=== PATIENT | female | born 1990 | race Caucasian/White ===

== ENCOUNTER 2024-03-12 15:29 | Emergency (ER) | payer OTHER, SELFPAY ==
[2024-03-12 15:34] VITALS: BP 134/79; PULSE 89; TEMP 37.1; O2SAT 99; BMI 28.3
--- NOTE | 2024-03-12 15:39 | ED.PREGNANC1 ---
HPI - General Chief complaint: Vaginal Bleeding Stated complaint: BLEEDING, 5-6 WEEKS PREG Time Seen by Provider: 03/12/24 15:31 Source: patient Mode of arrival: walk-in Limitations: no limitations History of Present Illness HPI Narrative: Patient is a 33-year-old female who presents to the emergency department for vaginal bleeding in . She is approximately 5 to 6 weeks . She is a G3, P2 and had no issues with her previous pregnancies. She states she developed vaginal bleeding and cramping and was seen at [facility]'s emergency department yesterday. They did an ultrasound and diagnosed her with a threatened miscarriage. She states the bleeding increased today and she presents to the ER requesting repeat hormone levels because she states she needs to know if it is a miscarriage . She has an appointment with her RESEARCH DEVELOPMENT MANAGER on Thursday for repeat ultrasound. She reports mild abdominal cramping at this time. No urinary symptoms. She states she has passed clots today. Review of Systems ROS Constitutional Denies: fever or chills Ears, nose, mouth, and throat Denies: throat pain Cardiovascular Denies: chest pain Respiratory Denies: shortness of breath Gastrointestinal Denies: nausea or vomiting Genitourinary Reports: pelvic pain; Denies: painful urination Integumentary/Breast Denies: rash or redness Neurological Denies: headache, numbness in extremities or weakness in extremities Hematologic/Lymphatic Denies: easy bruising or easy bleeding PFSH PFSH Social History Little interest or pleasure in doing things: not at all Feeling down, depressed, or hopeless: not at all Exam Narrative Exam Narrative: Gen.: Awake, alert, in no distress Head: Normocephalic, atraumatic ENT: Moist mucous membranes Respiratory: No respiratory distress Gastrointestinal: Abdomen is soft, nondistended and nontender to palpation Extremities: Moves extremities equally Psych: Normal mood and affect Neuro: No focal neuro deficit Skin: Warm, dry, intact Constitutional Vital Signs, click to edit/add: Last Vital Signs Temp 98.8 F 03/12/24 15:34 Pulse 69 03/12/24 17:00 Resp 20 03/12/24 17:00 BP 164/82 H 03/12/24 17:00 Pulse Ox 99 03/12/24 17:00 O2 Del Method Room Air 03/12/24 15:34 Course Vital Signs Vital signs: Vital Signs Temperature 98.8 F 03/12/24 15:34 Pulse Rate 89 03/12/24 15:34 Respiratory Rate 16 03/12/24 15:34 Blood Pressure 134/79 03/12/24 15:34 Pulse Oximetry 99 03/12/24 15:34 Oxygen Delivery Method Room Air 03/12/24 15:34 Temperature 98.8 F 03/12/24 15:34 Pulse Rate 69 03/12/24 17:00 Respiratory Rate 20 03/12/24 17:00 Blood Pressure 164/82 H 03/12/24 17:00 Pulse Oximetry 99 03/12/24 17:00 Oxygen Delivery Method Room Air 03/12/24 15:34 MDM - OB/Uterine Contractions MDM Narrative Medical decision making narrative: Records obtained from [facility] showing that the patient had an hCG quant at 10,730 as well as an ultrasound showing a presumed gestational sac in the endometrial canal at 5 weeks and 5 days consistent with the patient's history. There was no evidence noted on the ultrasound suggesting ectopic and the patient today has no pain out of proportion or unstable vital signs. Hemoglobin is stable at 13. Patient with O+ blood type noted on documentation from [facility]. Quantitative hCG level today is 8000. Patient's levels are decreasing suggesting incomplete miscarriage. She is instructed to follow-up as scheduled with her RESEARCH DEVELOPMENT MANAGER on Thursday. No other acute intervention required from the ER today, hemoglobin is stable at 13. Return to the ER if symptoms change or worsen. SHARED APC VISIT, PHYSICIAN ATTESTATION: Sqog-uo-dxpt I performed a substantive part of the MDM during the patient?s E/M visit. I personally evaluated and examined the patient. I personally made or approved the documented management plan and acknowledge its risk of complications. Medical Records Attestation: I reviewed the patient's medical records. Lab Data Attestation: I reviewed the patient's lab results. Labs: Lab Results 03/12/24 Range/Units 16:04 WBC 5.6 (4.0-11.0) 10^3/uL RBC 4.33 (4.20-5.40) 10^6/uL Hgb 13.0 (12.0-16.0) g/dL Hct 37.3 (36.0-48.0) % MCV 86.1 (81.0-99.0) fL MCH 30.0 (26.7-34.0) pg MCHC 34.9 (29.9-35.2) g/dL RDW 12.0 (11.0-15.0) % Plt Count 247 (150-450) 10^3/uL MPV 9.9 (9.5-13.5) fL Neut % (Auto) 58.0 (43.0-75.0) % Lymph % (Auto) 30.4 (20.5-60.0) % [place] % (Auto) 6.4 (1.7-12.0) % Eos % (Auto) 4.3 (0.9-7.0) % Baso % (Auto) 0.7 (0.2-2.0) % Neut # (Auto) 3.3 (1.4-6.5) 10^3/uL Lymph # (Auto) 1.7 (1.2-3.8) 10^3/uL [place] # (Auto) 0.4 (0.3-0.8) 10^3/uL Eos # (Auto) 0.2 (0.0-0.7) 10^3/uL Baso # (Auto) 0.0 (0.0-0.1) 10^3/uL Abs Immat Gran (auto) 0.01 (0.00-0.03) 10^3/uL Imm/Tot Granulo (auto) 0.2 (0.0-0.5) % HCG, Quant 8066 mIU/mL Discharge Plan Discharge Chief Complaint: Vaginal Bleeding Clinical Impression: Incomplete Patient Disposition: Home, Self-Care Time of Disposition Decision: 17:04 Condition: Good Print Language: Azeri Instructions: Miscarriage (ED) Additional Instructions: Follow up with your RESEARCH DEVELOPMENT MANAGER on Thursday as scheduled Referrals: Physician,Non-Staff, MD [Primary Care Provider] - 1 week
[2024-03-12 16:10] LABS: Basophils Percent Auto 0.7 % (0.2-2.0); Eosinophils Absolute Auto 0.2 10^3/uL (0.0-0.7); Eosinophils Percent Auto 4.3 % (0.9-7.0); Hematocrit 37.3 % (36.0-48.0); Immature Granulocytes Abs Auto 0.01 10^3/uL (0.00-0.03); Immature Granulocytes Pct Auto 0.2 % (0.0-0.5); Lymphocytes Absolute Auto 1.7 10^3/uL (1.2-3.8); Lymphocytes Percent Auto 30.4 % (20.5-60.0); Mean Corpuscular HGB Conc 34.9 g/dL (29.9-35.2); Mean Corpuscular Volume 86.1 fL (81.0-99.0); Mean Platelet Volume 9.9 fL (9.5-13.5); Monocytes Absolute Auto 0.4 10^3/uL (0.3-0.8); Monocytes Percent Auto 6.4 % (1.7-12.0); Neutrophils Absolute Auto 3.3 10^3/uL (1.4-6.5); Platelet Count 247 10^3/uL (150-450); Red Blood Count 4.33 10^6/uL (4.20-5.40); White Blood Count 5.6 10^3/uL (4.0-11.0)
[2024-03-12 16:56] LABS: HCG Quantitative 8066 mIU/mL
[2024-03-12 17:02] LABS: Bilirubin Urine NEGATIVE (NEGATIVE); Blood Urine LARGE (NEGATIVE); Clarity Urine CLEAR (CLEAR); Color Urine YELLOW (YELLOW); Glucose Urine UA NEGATIVE (NEGATIVE); Ketones Urine NEGATIVE (NEGATIVE); Leukocyte Esterase Urine SMALL (NEGATIVE); Nitrite Urine NEGATIVE (NEGATIVE); Protein Urine TRACE mg/dL (NEG/TRACE)
[2024-03-12 17:05] VITALS: BP 119/80; PULSE 78; O2SAT 97
[2024-03-12 17:09] LABS: Urine Microscopic Indicated YES
[2024-03-12 17:10] LABS: Bacteria Urine TRACE #/HPF (NONE SEEN); Mucus Urine TRACE (NONE SEEN); RBC Urine 50-75 #/HPF (0-2); Squamous Epithelial Cell Urine FEW #/LPF (NONE/RARE)
[2024-03-12 17:11] LABS: Urine Culture Indicated YES
== END 2024-03-12 17:14 | disposition home or self-care (01) ==
PROVIDERS: Physician Assistant; Emergency Provider Emergency Medicine
DX: O03.4 Incomplete spontaneous abortion without complication (principal)
CPT/HCPCS: 36415; 81001; 84702; 85025; 87086; 99283

== ENCOUNTER 2025-03-19 16:13 | Emergency (ER) | payer OTHER, SELFPAY ==
--- OUTSIDE RECORDS SUMMARY | 2023-11-30 05:00 | XMS_ITS ---
Author Organization [facility] Servic es Address [address] [place] [address] Care Team Providers Care Director Of Clinical Education Name Role Phone Khari Barber Primary Care Provider [phone] Dr. Gabino Vickers [phone] REASON FOR VISIT est care Medications Medication SIG (Take, Route, Frequency, Duration) Notes Start Date End Date Status Ibuprofen 800 MG Tablet 1 tablet with fo od or milk as needed Orally Three times a day 07/24/2022ctive Encounters Encounter Location Date Provider Diagnosis [facility] Services [address] [place] [address] 11/30/2023 Khari Barber Plan Of Treatment Next Appt Details Provider Name:Gabino Vickers, 0 06/19/2025 04:00:00 PM, [address] [place], [address], Provider Name:Gabino Vickers, 0 06/29/2025 09:00:00 AM, [address] [place], [address], Provider Name:Gabino Vickers, 0 07/27/2025 09:00:00 AM, [address] [place], [address], Progress Notes * MINH VALENTEB:1990 (34 yo F)Acc No.[id number]:11/30/2023 Progress Notes Patient: BALA MOSQUERA Provider:?LORENE BuchananOB:1990 ???Age:33 Y???Sex:FemaleDate:11/30/2023hone:[phone]:[address] [id number] Subjective: * Chief Complaints: * E st care * Medications: T akingIbuprofen 800 MG Tablet 1 tablet with food or milk as needed Orally Three times a day Taking Ibuprofen 800 MG Tablet 1 tablet with food or milk as needed Orally Three times a day Billing Information: * Procedure Codes: * Electronic signature of Khari Barber DO on 03/19/2025 at 04:39 PM ESTSign off status: Pending * Appointment Provider: Juan Barber DO Date: 0 11/30/2023 Generated for Printing/Faxing/eTransmitting on:?03/19/2025 04:39 PM EST
--- OUTSIDE RECORDS SUMMARY | 2023-12-07 05:00 | XMS_ITS ---
Author Organization [facility] Servic es Address [address] [place] [address] Care Team Providers Care Cabinet Maker Name Role Phone Khari Barber Primary Care Provider [phone] Dr. Gabino Vickers [facility] [phone] REASON FOR VISIT est care Encounters Encounter Location Date Provider Diagnosis [facility] Services [address] [place] [address] 12/07/2023 Khari Barber Plan Of Treatment Next Appt Details Provider Name:Gabino Vickers, 0 06/19/2025 04:00:00 PM, [address] [place], [address], Provider Name:Gabino Vickers, 0 06/29/2025 09:00:00 AM, [address] [place], [address], Provider Name:Gabino Vickers, 0 07/27/2025 09:00:00 AM, [address] [place], [address], Progress Notes * KEMAL VALENTE:1990 (34 yo F)Acc No.[id number]:12/07/2023 Progress Notes Patient: BALA MOSQUERA Provider:?LORENE BuchananOB:1990 ???Age:33 Y???Sex:FemaleDate:12/07/2023hone:[phone]:[address] , [place], [id number] Subjective: * Chief Complaints: * E st care Billing Information: * Procedure Codes: * Electronic signature of Khari Barber DO on 03/19/2025 at 04:40 PM ESTSign off status: Pending * Appointment Provider: Juan Barber DO Date: 0 12/07/2023 Generated for Printing/Faxing/eTransmitting on:?03/19/2025 04:40 PM EST
--- OUTSIDE RECORDS SUMMARY | 2024-10-03 08:29 | XMS_ITS | Continuity of Care Document ---
Author Organization [facility] Address [address] [place] [address] Phone Care Team Providers Care Radio Time Salesperson Name Role Phone Ricky WHCNP WHCNP, Marilou Unavailable Unavaila ble Allergies, Adverse Reactions, Alerts Substance Reaction Status Criticality No Known Allergies Active No Inform ation Medications Medication Instructions Dosage Effective Dates (start - stop) Status Comments metronidazole 0.75 % (37.5 mg/5 gram) vaginal gel insert 1 applicatorful by vaginal route every day at bedtime 37.5 MG - Active Problems Condition Type Effective Dates (start - stop) Clini nadege Status Comments No Known Problems Procedures Procedure Date PREV VISIT, EST, AGE 18-39 Bp scrn perf rec interval DIAST BP < 80 MM HG SYST BP < 130 MM HG MED LIST DOCD IN [facility] RVW MEDS BY RX/DR IN [facility] Tobacco User Not Consuled RAPID STI Chalm/Gonorr/Trich Alcohol and/or drug services- Acute Deto x IMMUNIZATION ADMIN HEP A VACCINE, ADULT IM Alcohol and/or drug services- Acute Deto x DRUG TEST PRSMV DIR OPT OBS URINE TEST Alcohol and/or drug services- Acute Deto x Comp Oral Eval New/estab Patient 2014 Intraoral-complete Series (bw) Oral Hygiene Instruction OFFICE/OUTPATIENT VISIT, NEW Condoms Advance Directives Directive Yes / No Effective Date File Name No Information Encounters Encounter Description Practice Location Reason(s) For Visit Diagnoses Date Provider Providers Copied on Encounter [facility], [address] [place] [address], [id number] , tel: [phone] [facility] No Information 5 [facility] Marilou. [address] [place] [address], [id number] , [place]. tel: [phone] [facility], [address] [place] [address], [id number] , [place] tel: [phone] [facility] No Information 5 [facility] Marilou. [address] [place] [address], [id number] , [place]. tel: [phone] PREV VISIT, EST, AGE 18-39 [facility], [address] [place] [address], [id number] , [place] tel: [phone] [facility] annual exam (chief complaint)v aginal discharge/i tching (chief complaint) Encounter for gynecological examination (general) (routine) without abnormal findingsBody mass index [BMI] 31.0-31.9, adultPelvic pain- STD High risk heterosexual behavior- STD screen Jun- 5 [facility] Marilou. [address] [place] [address], [id number] , [place]. tel: [phone] [facility], [address] [place] [address], [id number] , [place] tel: [phone] [facility] Detox Opioid dependence with withdrawal 9 Pavlock DO Max. [address] [place] [address], [id number] , [place]. tel: [phone] [facility], [address] [place] [address], [id number] , [place] tel: [phone] [facility] Detox Opioid dependence with withdrawal 9 Pavlock DO Max. [address] [place] [address], [id number] , [place]. tel: [phone] [facility], [address], [place], [id number] , [place] tel: [phone] [facility] Detox heroin dependence (chief complaint) Opioid dependence with withdrawal 9 Rito Levon. [address], [place], [id number] , [place]. tel: [phone] [facility], [address], [place], [id number] , [place] tel: [phone] [facility] Detox Opioid dependence with withdrawalEncounter for test, result negative 9 Karo Bah. [address], [place], [id number] , [place]. tel: [phone] [facility], [address] [place] [address], [id number] , [place] tel: [phone] [facility] Dental exam Apr-0 2-201 5 Mehdi DMD July. [address], [place], [id number] , [place]. tel: [phone] OFFICE/OUTPA TIENT VISIT, [facility], [address] [place] [address], [id number] , [place] tel: [phone] [facility] screening (chief complaint) Screening examination for venereal disease Jun-3 0-201 5 Yanely Montalvo. [address], [place], [id number] , [place]. tel: [phone] [facility], [address] [place] [address], [id number] , [place] tel: [phone] [facility] No Information Dec0 8-201 0 Visci DO Woodrow. [address], [place], [id number] , [place]. tel: [phone] Family History Family Member Type Diagnosis Age At Onset Problem (finding) Family history of Cardi ovascular disease Mother Problem Hypertension Father Problem Hypertension Problem (finding) Family history of Diabe bernadette mellitus Sister Problem Diabetes mellitus Immunizations Vaccine Date Status Comments Hep A (adult) administered Source: New Im munization Record Payers Payer name Insurance type Covered alliance party ID Authorshahidaa tijordy(s) Brigid Medicaid [facility] [id number] Medicaid Wrap - [facility] [id number] [employer] Medicaid [place] [id number] Social History Type Description Quantity Date Captured Comments Alcohol Use Details Unknown Caffeine Use Details Unknown Tobacco Use Status No Information Smoking Status No Information Sex Female Sexual Orientation Straight or heterosexual Gender Identity Female Chief Complaint And Reason For Visit No Information Reason For Referral Reason For Referral No Information Plan Of Treatment Date Type Action Status Goal HPV. Due on due Goal Influenza vaccine. Due on due Goal Unhealthy drug use screening . Due on due Goal Tdap. Due on due Goal Tdap Vaccine. Due on 2024 due Goal Depression screening. Due on due Goal RLP. Due on due Goal PRAPARE ASSESSMENT. Due on due Goal Hepatitis C screening. Due o n due Goal HPV. Due on due Goal Influenza vaccine. Due on due Goal RLP. Due on due Goal Tdap. Due on due Goal PRAPARE ASSESSMENT. Due on due Goal Hepatitis C screening. Due o n due Goal Unhealthy drug use screening . Due on due Goal Tdap Vaccine. Due on 2024 due Goal Depression screening. Due on due Goal Dietary management education , guidance, and counseling completed History Of Present Illness Encounter Date Complaint History Of Prese nt Illness annual exam Currently pregna nt: no. : 3. Parity: Term: 2. spontaneous: 1. Livin.Client is not contemplating . The client states using none for control. Last LMP was 06/27/2024. Patient's menses is regular with heavy flow with a frequency of every 28 days. Negative for dysmenorrhea and menorrhagia. Negative for: breast discharge, breast lump(s), breast pain and breast self exam.Negative for Hormone replacement therapy. Pertinent negatives include anxiety and depression. The client no longer uses tobacco. The client does not drink alcohol. Additional information: Patient is here for annual exam and STD screen. States she has had a change in sexual partners and wants cervical culture and declines blood STDs. Her menses are regular and not too heavy or painful. She declines BCM as she desires a . States she had a miscarriage 03/14. C/O mild cramping off and on denies s/s of UTI. vaginal discharge/itching Her sy mptoms began 1 Week ago. Presently the client is experiencing vaginal odor and vaginal discharge. Color is yellow. Presently the client is not experiencing vaginal itching and vaginal irritation.The client is premenopausal. Last menstrual period was 06/27/2024. heroin dependence 28 year old fe male checked in to detox today and reports last using heroin/fentanyl last night. She typically uses 1g/day and has been doing so for 10 years. She has attended detox twice before with the last being 1 year ago.surgical hx- noneallergies- nonemeds- nonetobacco- 1 ppdalcohol- noneplans upon completing detox- inpatient screening Screening. State s just got out of prision. Former IV drug user. Clean for one year. Marah Bazzi Functional Status Date Functional Assessmen t No Information Instructions Date Instruction Additional Infor norbert Rapid STD screen obt ained in office today. If result is negative patient will not receive a call. If positive, [facility] will call patient within 24 hours. Patient states understanding. Encouraged to use condoms in the future to prevent STDs Related to - STD High risk heterosexual behavior UA normal in office today. Encouraged Motrin PRN and monitor mild discomfort. Call or RTC increased concerns Related to Pelvic pain Encouraged good diet samuel intake, exercise and healthy lifestyle choices. Recommend daily multi-vitamin with Folic acid. Understands the need for non-violent partners in a consensual relationship. Patient does not desire a in the near future. Reviewed control options for prevention and declines BCM as she would like a Related to Encounter for gynecological examination (general) (routine) without abnormal findings Dietary management e ducation, guidance, and counseling Related to Body mass index [BMI] 31.0-31.9, adult Giving encouragement to exercise Related to Body mass index [BMI] 31.0-31.9, adult No treatment indicat ed today. Call for test results. Related to Screening examination for venereal disease Avoid sexual activit y while you await your test results. Related to Screening examination for venereal disease Assessments Type Assessment Date No Information Patient Care Teams Name Effective Dates (start - stop) Status Members No Information
--- OUTSIDE RECORDS SUMMARY | 2025-01-20 05:05 | XMS_ITS ---
Author Organization [facility] Servic es Address [address] [place] [address] Care Team Providers Care Cellophane Wrapping Examiner Name Role Phone Khari Barber Primary Care Provider [phone] Dr. Gabino Vickers [phone] REASON FOR VISIT CHIPPED TOOTH Encounters Encounter Location Date Provider Diagnosis [facility] Sebastien [address] [place] [address] 2024 Gabino Vickers Plan Of Treatment Next Appt Details Provider Name:Gabino Vickers, 0 06/19/2025 04:00:00 PM, [address] [place], [address], Provider Name:Gabino Vickers, 0 06/29/2025 09:00:00 AM, [address] [place], [address], Provider Name:Gabino Vickers, 0 07/27/2025 09:00:00 AM, [address] [place], [address], Progress Notes * KEMAL VALENTE:1990 (34 yo F)Acc No.[id number]:01/20/2025 Patient:?VALENTESANGA :?Gabino Vickers DDSDOB:1990???Age:34 Y???Sex: FemaleDate:01/20/2025Phone:[phone]:[address] , [place], [id number]:Khari Barber Subjective: * Chief Complaints: * C HIPPED TOOTH Billing Information: * Procedure Codes: * Electronic signature of Dr. Gabino Vickers , [facility], [id number] on 03/19/2025 at 04:40 PM ESTSign off status: Pending * Provider: Samantha Vickers DDS Date: Generated for Printing/Faxing/eTransmitting on:?03/19/2025 04:40 PM EST
--- OUTSIDE RECORDS SUMMARY | 2025-01-27 04:00 | XMS_ITS ---
Author Organization [facility] Servic es Address [address] [place] [address] Care Team Providers Care Chief Controller Tower Name Role Phone Khari Barber Primary Care Provider [phone] Dr. Gabino Vickers [phone] REASON FOR VISIT CHIPPED TOOTH Encounters Encounter Location Date Provider Diagnosis [facility] Faith [address] [place] [address] 2024 Gabino Vickers Plan Of Treatment Next Appt Details Provider Name:Gabino Vickers, 0 06/19/2025 04:00:00 PM, [address] [place], [address], Provider Name:Gabino Vickers, 0 06/29/2025 09:00:00 AM, [address] [place], [address], Provider Name:Gabino Vickers, 0 07/27/2025 09:00:00 AM, [address] [place], [address], Progress Notes * KEMAL VALENTE:1990 (34 yo F)Acc No.[id number]:01/27/2025 Patient:?VALENTESANGA :?Gabino Vickers DDSDOB:1990???Age:34 Y???Sex: FemaleDate:01/27/2025Phone:[phone]:[address] , [place], [id number]:Khari Barber Subjective: * Chief Complaints: * C HIPPED TOOTH Billing Information: * Procedure Codes: * Electronic signature of Dr. Gabino Vickers , [facility], [id number] on 03/19/2025 at 04:39 PM ESTSign off status: Pending * Provider: Samantha Vickers DDS Date: 1 Generated for Printing/Faxing/eTransmitting on:?03/19/2025 04:39 PM EST
[2025-03-19 16:19] VITALS: BP 131/76; PULSE 69; TEMP 36.8; O2SAT 99; BMI 27.5
--- NOTE | 2025-03-19 16:30 | ED_ITS ---
HPI HPI - General Adult General Chief complaint: Urogenital-Female Stated complaint: abd pain Time Seen by Provider: 03/19/25 16:24 Source: patient Mode of arrival: walk-in History of Present Illness HPI narrative: 34-year-old female presents for abdominal cramping. She states she is and she found out 3 days ago. LMP was February 18. She is 4 para 2 A1. No vaginal bleeding. No dysuria or hematuria or back pain and no injury. She has not yet seen her linux system engineer during this . Related Data Home Medications ?Medication ?Instructions ?Recorded ?Confirmed methadone 105 mg PO DAILY 03/19/25 Allergies Allergy/AdvReac Type Severity Reaction Status Date / Time metoclopramide (From Reglan) Allergy stiff neck Verified 03/19/25 16:17 Opioid HPI Opioid Management Most Recent Opioid Data: Last Pain Scale 3 Today, 16:26 Review of Systems ROS Narrative A ten point review of systems is negative except as noted above. PFSH PFSH Social History Little interest or pleasure in doing things: not at all Feeling down, depressed, or hopeless: not at all Exam Narrative Exam Narrative: Nurses note and vital signs reviewed General:The patient appears well and in no apparent distress.Patient is resting comfortably on cart. Skin:Warm, dry, no pallor noted.There is no rash noted. Head:Normocephalic, atraumatic Eye: Normal conjunctiva, no drainage Ears, Nose, Mouth, and Throat: oral mucosa is moist. Nares patent. Cardiovascular:Regular Rate and Rhythm Respiratory:Patient is in no distress, no accessory muscle use, lungs are clear to auscultation, no wheezing, rales or rhonchi Back:non-tender, no CVA tenderness bilaterally to percussion. GI: Soft and nontender including in the left lower quadrant. Musculoskeletal: The patient has no evidence of calf tenderness, no pitting edema, symmetrical pulses noted bilaterally Neurological:A&O, normal speech Psychiatric:Cooperative Constitutional Vital Signs, click to edit/add: Last Vital Signs Temp 98.3 F 03/19/25 16:19 Pulse 69 03/19/25 16:19 Resp 16 03/19/25 16:19 BP 131/76 03/19/25 16:19 Pulse Ox 99 11/30/25 16:19 O2 Del Method Room Air 03/19/25 16:19 Course Vital Signs Vital signs: Vital Signs Temperature 98.3 F 03/19/25 16:19 Pulse Rate 69 03/19/25 16:19 Respiratory Rate 16 03/19/25 16:19 Blood Pressure 131/76 03/19/25 16:19 Pulse Oximetry 99 03/19/25 16:19 Oxygen Delivery Method Room Air 03/19/25 16:19 Temperature 98.3 F 03/19/25 16:19 Pulse Rate 69 03/19/25 16:19 Respiratory Rate 16 03/19/25 16:19 Blood Pressure 131/76 03/19/25 16:19 Pulse Oximetry 99 03/19/25 16:19 Oxygen Delivery Method Room Air 03/19/25 16:19 Medical Decision Making MDM Narrative Medical decision making narrative: She has a positive urine test and no evidence of UTI. The intention was to check blood work including hCG quantitative. She is a difficult IV draw and initially blood could not be drawn. She then left the emergency department without completing her treatment. Differential Diagnosis Differential Diagnosis: Ectopic , UTI, Lab Data Lab results reviewed: Yes I reviewed the patient's lab results Labs: Lab Results 03/19/25 Range/Units 16:25 Urine Color Lt. yellow (YELLOW) Urine Clarity Clear (CLEAR) Urine pH 6.0 (5.0-9.0) Ur Specific [place] >=1.030 A (1.005-1.025) Urine Protein Negative (NEG/TRACE) mg/dL Urine Glucose (UA) Negative (NEGATIVE) mg/dL Urine Ketones Negative (NEGATIVE) mg/dL Urine Occult Blood Small A (NEGATIVE) Urine Nitrite Negative (NEGATIVE) Urine Bilirubin Negative (NEGATIVE) Urine Urobilinogen 0.2 (0.2-1.0) EU/dL Ur Leukocyte Esterase Negative (NEGATIVE) Urine RBC 0-2 (0-2) #/HPF Urine WBC 0-2 A (NONE SEEN) #/HPF Ur Squamous Epith Cells Rare (NONE/RARE) #/LPF Urine Crystals None seen (None Seen) #/HPF Urine Bacteria Trace A (NONE SEEN) #/HPF Urine Casts None seen (NONE SEEN) #/LPF Urine Mucus Moderate A (NONE SEEN) Urine HCG, Qual Positive A (NEGATIVE) Discharge Plan Discharge Stand Alone Forms: Portal Instructions Chief Complaint: Urogenital-Female Clinical Impression: Abdominal pain in Patient Disposition: Left Against Medical Advice Time of Disposition Decision: 18:47 Mode of Transportation: Private Vehicle Prescriptions / Home Meds: No Action methadone 105 mg PO DAILY Rx Instructions: 105 mg orally; Print Language: Latvian Instructions: Abdominal Pain in (ED) Referrals: Physician,Non-Staff, MD [Primary Care Provider] - 1 week
--- OUTSIDE RECORDS SUMMARY | 2025-03-19 16:40 | XMS_ITS | Clinical Summary ---
Author Organization [facility] tem Address [facility] [place]-[id number] [address] [place] [address] Care Team Providers Care Jr. Systems Administrator Name Role Phone Dianne Contrerasndra MARCO ANTONIO-TAILER IN Primary Care Pro vider Allergies No known active allergies Medications MedicationSigDispense QuantityRefillsLast FilledStart DateEnd DateStatus gabapentin (NEURONTIN) 600 mg tablet Take 600 mg by mouth 3 (three) times a day.Active omeprazole (PriLOSEC) 20 mg capsule Take 20 mg by mouth daily.Active norethindrone (MICRONOR) 0.35 mg tablet Indications:Women's annual routine gynecological examination, control counselingTake 1 tablet (0.35 mg total) by mouth daily. 28 tablet Active Additional Information Patient not taking.Reported on 11/13/2020 methadone (DOLOPHINE) 10 mg tablet Take 75 mg by mouth.Active dextromethorphan-guaiFENesin (MUCINEX DM) 30-600 mg tablet extended release 12 hr Take 1 tablet by mouth every 12 (twelve) hours as needed (as needed) for up to 20 doses. 20 each 04/28/2021ctive acetaminophen (TylenoL) 325 mg tablet Take 2 tablets (650 mg total) by mouth every 6 (six) hours as needed for pain. 30 tablet 07/09/2023ctive ibuprofen (MOTRIN) 600 mg tablet Take 1 tablet (600 mg total) by mouth every 6 (six) hours as needed for pain. 30 tablet 07/09/2023ctive metoclopramide (REGLAN) 10 mg tablet Take 1 tablet (10 mg total) by mouth every 6 (six) hours. 30 tablet 03/21/2024Active Active Problems ProblemNoted DateDiagnosed DateGC (gonococcus infection)02/09/2020Chlamydia mirfbfcxz68/22/2020ASCUS of cervix with negative high risk HPV02/09/2020 Overview (02/09/2020): 01/2020 Rpt pap with co-testing in 3 years Resolved Problems ProblemNoted DateDiagnosed DateResolved DateEncounter for IUD ghcexsh4903/04/2016 02/09/2020 Immunizations No known immunizations Family History Medical HistoryRelationNameCommentsCancerMotherBreastDiabetesSisterRelationName StatusCommentsMotherSister Social History Tobacco UseTypesPacks/DayYears UsedDateSmoking Tobacco: FormerCigarettes0.56 Smokeless Tobacco: Former Tobacco Cessation:Counseling Given: Not Answered Alcohol UseStandard Drinks/WeekCommentsNo0 (1 standard drink = 0.6 oz pure alcohol)ChildcareAnswerDate WwkldkktYcelscjhsFpiybso63/10/2019EmploymentAnswer Date ErzdgmwlCvyfyopfrsTllvkil27/10/2019Purpose - LifeAnswerDate RecordedPurpose and direction in bsytZxbhzmb35/10/2021CommentsNoSex and Gender InformationValueDate RecordedSex Assigned at BirthNot on fileLegal SexFemale 11/21/2014 11:56 AM EDTGender IdentityNot on fileSexual OrientationNot on file Last Filed Vital Signs Vital SignReadingTime TakenCommentsBlood Ovtpvkwm791/8703 6:15 PM EDT Xedys144107/09/2023 5:18 PM ZHRObdawojqlhv36.2 ??C (99 ??F)07/09/2023 5:18 PM EDT Respiratory Emik881507/09/2023 5:18 PM EDTOxygen Lbqufekjxz51%07/09/2023 6:15 PM EDTInhaled Oxygen Concentration--Gseize50.1 kg (170 lb)07/09/2023 5:18 PM EDT Rusnnq286 cm (5' 3 )07/09/2023 5:18 PM EDTBody Mass Index30.1103 5:18 PM EDT Plan of Treatment Health MaintenanceDue DateLast DoneCommentsDTaP,Tdap and Td Vaccines (6 - Tdap) , 11/27/1993, 03/01/1993, Additional history exists Depression Nbicgzupl06/04/2005Pap Smear31, 02/02/2020, 01/06/2019, Additional history existsAdult BMI Dbyeplsom12 Tobacco Trlwceynb67OVID-19 Vaccine ( season) 501/, 01/03/2021Influenza Mizxqnc6312/19/2024 Medical Devices Not on file Procedures Procedure NamePriorityDate/TimeAssociated DiagnosisCommentsPAP SMEARRoutine 02/02/2020 6:00 PM EDT Women's annual routine gynecological examination from Last 3 Months or Most Recently Relevant to Health Maintenance Results * (ABNORMAL) Pap Smear (02/02/2020 6:00 PM EDT)Specimen (Source)Anatomical Location / LateralityCollection Method / VolumeCollection TimeReceived Time 02/02/2020 6:00 PM EDT1 6:02 PM EDT Narrative COPATH - 02/08/2020 8:12 PM EDT [facility] ? [address] [place] [address] ? [place] [address] ? Gynecologic Cytology Consultation ? Patient Name: DIANNE KIMBALL : 1990 (Age: 29) Gender: F Taken: 02/02/2020 Reported: 02/08/2020 Physician(s): Axel Valencia CNM ([phone]) Copy To: ?? Med. Rec. #: [id number] Acct: # [id number] Final Cytologic Interpretation ThinPrep Pap Test (Cervical): Satisfactory for evaluation. A transformation zone component is present. SQUAMOUS EPITHELIAL CELL ABNORMALITY Atypical squamous cells of undetermined significance (ASC-US). ?? wak/02/08/2020 Interpretation performed at [facility], [address] [place] [id number], License number: [id number]. Electronically Signed Out By ?Kimani Mcmullen MD Date of Last Menstrual Period: ? 01/26/2020 Other Clinical Conditions: Z01.419 Engraver Letter exam wo/abn findings Source of Specimen ??ThinPrep Pap Test (Cervical) ? Thin Prep Pap (TOOTH CUTTER CONTACT WHEEL) Fee Code(s): ?? G0145, 84984 The Pap test is a screening test with an inherent, but low, probability of error. The Pap test is primarily effective for the diagnosis and prevention of squamous cell carcinoma. Regular screening iscritical for prevention. ThinPrep liquid-based slides, which meet the Mathematics Professor criteria for automated screening, have been screened by the ThinPrep Imaging System (as of 01/04/07) along with an additional manual rescreening by a retail department supervisor and, if indicated, by a pathologist. Authorizing ProviderResult TypeResult StatusCorrlidia Page APRN-MI PATHOLOGY/CYTOLOGY ORDERABLESFinal ResultPerforming OrganizationAddress City/State/ZIP CodePhone Number COPATH from Last 3 Months or Most Recently Relevant to Health Maintenance Insurance Care Teams Team MemberRelationshipSpecialtyStart DateEnd Date Dianne Contreras APRN-TAILER [place] [address] [place] [address] [facility] - [facility] Kmvmhilu78/17/21
--- OUTSIDE RECORDS SUMMARY | 2025-03-19 16:40 | XMS_ITS | Clinical Summary ---
Author Organization [facility] Address [address] [place] [address] Care Team Providers Care Clinical Medical Transcriptionist Name Role Phone Unallocated, Noms Provider Primary Care Provi mp Allergies Active AllergyReactionsCriticalityNoted DateCommentsMetoclopramideAnaphylaxis High11/01/2016 Neck swelling, issues breathing Medications MedicationSigDispense QuantityRefillsLast FilledStart DateEnd DateStatus METHADONE HCL PO Take 85 mg by mouth.Active Vit-Fe Fumarate-FA ( Vitamins) 28-0.8 MG tablet Indications: care, subsequent in first trimester ([facility])Take 1 tablet by mouth Daily 30 tablet Expired Active Problems ProblemNoted DateDiagnosed DateAllergic xwqlcsir88/14/2023PD tkcoxscg43/14/2023 Wgbbsrqs20/21/5277Mzwdne59/21/2022ersistent cough for 3 weeks or longer 09/07/20218722Xdsmeszy44/21/2022Tobacco abuse09/07/2021Vitamin D deficiency 07/16/2021Hepatitis C antibody test vjovcpzg43/27/2021SCUS of cervix with negative high risk HPV02/09/2020 Overview (10/01/2022): 01/2020 Rpt pap with co-testing in 3 years Chlamydia wnostvqor85/22/2020GC (gonococcus infection)02/09/2020Major depressive disorder, single episode, fgagzbqjmas19/06/2020 Resolved Problems ProblemNoted DateDiagnosed DateResolved DateLong-term current use of methadone for opiate qpsrowliio57Obstructive lung bpsbdyg7109/07/2021 10/22/2022 Immunizations ImmunizationAdministration DatesNext DueModerna SARS-CoV-2 Cejlthyihrg88/16/2021 Family History Medical HistoryRelationNameCommentsBreast cancerMaternal GrandmotherHypertension Maternal GrandmotherBreast cancerMotherDiabetesSisterRelationNameStatusComments FatherAliveMaternal GrandmotherMotherAliveSister Social History Tobacco UseTypesPacks/DayYears UsedDateSmoking Tobacco: NeverSmokeless Tobacco: Current Comments:vaping Alcohol UseStandard Drinks/WeekCommentsNot Currently0 (1 standard drink = 0.6 oz pure alcohol)Caffeine intake: RareAUDIT-CAnswerDate RecordedQ1: How often do you have a drink containing alcohol?Never10/01/2022Q2: How many drinks containing alcohol do you have on a typical day when you are drinking?Patient does not drink10/01/2022Q3: How often do you have six or more drinks on one occasion? Never10/01/2022HQ-2AnswerDate RecordedPatient Health Questionnaire-2 Score0 10/01/2022CommentsNoSex and Gender InformationValueDate RecordedSex Assigned at BirthNot on fileLegal XngXdadie54/15/2023 11:37 PM EDTGender IdentityNot on fileSexual OrientationNot on file Last Filed Vital Signs Vital SignReadingTime TakenCommentsBlood Tiffhwbd596/8005 1:48 PM EDT Slmdl499108/25/2023 1:48 PM EDTTemperature--Respiratory Rate--Oxygen Okcyhvqegp49% 08/25/2023 1:48 PM EDTInhaled Oxygen Concentration--Cfujzf21.2 kg (157 lb) 08/25/2023 1:48 PM RMCKaolhw403 cm (5' 3 )10/01/2022 2:58 PM EDTBody Mass Index 27.8110/01/2022 2:58 PM EDT Plan of Treatment Health MaintenanceDue DateLast DoneCommentsPap Smear2013COVID-19 Vaccine ( season)Influenza Vaccine (#1)2024ervical Cancer Nqlkikzlf29/14/2028HPV/Weklka19neumococcal Vaccine: Pediatrics (0 to 5 Years) and At-Risk Patients (6 to 64 Years)Aged OutNo longer eligible based on patient's age to complete this topic Procedures Procedure NamePriorityDate/TimeAssociated DiagnosisCommentsTHINPREP PAP AND HPV MRNA E6/E7 W/RFL HPV 16,18/54Qzxdjar87/14/2023 3:15 PM EDT Encounter for gynecological examination without abnormal finding Screening for malignant neoplasm of cervix from Last 3 Months or Most Recently Relevant to Health Maintenance Results * THINPREP PAP AND HPV MRNA E6/E7 W/RFL HPV 16,18/45 (10/01/2022 3:15 PM EDT) ComponentValueRef RangeTest MethodAnalysis TimePerformed AtPathologist SignatureCLINICAL INFORMATIONQUESTComment:None givenLMPQUESTComment:None given PREV. PAPQUESTComment:None givenPREV. BXQUESTComment:None givenSOURCEQUEST Comment:None givenSTATEMENT OF ADEQUACYQUESTComment: Satisfactory for evaluation. Endocervical/transformation zone component absent. INTERPRETATION/RESULTQUESTComment:Negative for intraepithelial lesion or malignancy.INFECTIONQUESTComment: Shift in vaginal cisco suggestive of bacterial vaginosis. CYTOTECHNOLOGISTQUESTComment: EMP, CT(ASCP) CT screening location: [facility] [address]. REVIEW CYTOTECHNOLOGISTQUESTComment: BGG, SCT(ASCP) CT screening location: [place] [address]. (ALWAYS MESSAGE)QUESTComment: EXPLANATORY NOTE: The Pap is a screening test for cervical cancer. It is not a diagnostic test and is subject to false negative and false positive results. It is most reliable when a satisfactory sample, regularly obtained, is submitted with relevant clinical findings and history, and when the Pap result is evaluated along with historic and current clinical information. HPV MRNA E6/E7Not DetectedNot DetectedQUESTComment: Methodology: Concrete Pouring Supervisor-Mediated Amplification This assay detects E6/E7 viral messenger RNA (mRNA) from 14 high-risk HPV types (16,18,31,33,35,39,45,51,52,56,58,59,66,68). Cervical sources are required for HPV testing. If a vaginal source from a patient who has had a total hysterectomy with removal of cervix was submitted, please contact the testing laboratory for alternative testing options. For additional information, please refer to http://education.aka-aki networks/faq/IRR893q3 (This link if provided for information/ educational purposes only.) Specimen (Source)Anatomical Location / LateralityCollection Method / Volume Collection TimeReceived Time10/01/2022 3:15 PM EDT10/02/2022 3:57 AM EDT Narrative Resulting Agency Comment Performing Organization Information ?Site ID: [id number] ?Name: [facility] ?Address: [address] [place] [address], [address] [place] [phone] ?Director: Alton Alexis MD Authorizing ProviderResult TypeResult StatusWillharish Bowman [facility] BLOOD ORDERABLESFinal ResultPerforming OrganizationAddressCity/State/ZIP CodePhone Number QUEST from Last 3 Months or Most Recently Relevant to Health Maintenance Insurance Care Teams Team MemberRelationshipSpecialtyStart DateEnd Date Unallocated, Noms Provider, [address] [place], [place] [id number] PCP - General10/01/22
--- OUTSIDE RECORDS SUMMARY | 2025-03-19 16:40 | XMS_ITS | CCD ---
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 prescription medications Follow-up With When Contact Information Follow-up with your SCENE SHIFTER In 3 days 01/26/2025 EDT Additional Instructions: Patient Education Abnormal Uterine Bleeding Attestation I performed a substantive part of the MDM during the patient???s E/M visit. I personally made or approved the documented management plan and acknowledge its risk of complications. (Independent Interpretation) My (EKG/X-Ray/US/CT) interpretation as above. (Discussion) Management/test interpretation discussed with APC. This report was transcribed using voice recognition software. Every effort was made to ensure accuracy, however, inadvertently computerized water safety instructor mistakes may be present. Appropriate healthcare PPE was used in evaluating this patient. Problem List/Past Medical History Ongoing No qualifying data Historical No qualifying data Medications Inpatient No active inpatient medications Home No active home medications Allergies No Known Allergies Lab Results Beta hCG Qnt: <1 (01/23/25 11:42:00) UA Spec Desc: Clean Catch (01/23/25 10:49:00) UA Color: Yellow (01/23/25 10:49:00) UA Clarity: Clear (01/23/25 10:49:00) UA Spec Grav: 1.035 (01/23/25 10:49:00) UA pH: 5.5 (01/23/25 10:49:00) UA Protein: Negat (01/23/25 10:49:00) UA Glucose: Negat (01/23/25 10:49:00) UA Ketones: Negat (01/23/25 10:49:00) UA Bili: Negat (01/23/25 10:49:00) UA Blood: 2+ Abnormal (01/23/25 10:49:00) UA Nitrite: Negat (01/23/25 10:49:00) UA Urobilinogen: Negat (01/23/25 10:49:00) UA Leuk Est: 75 Cristobal/uL Abnormal (01/23/25 10:49:00) UA RBC: 4-20 Abnormal (01/23/25 10:49:00) UA Squam Epithelial: >10 (01/23/25 10:49:00) UA WBC: 0-5 (01/23/25 10:49:00) UA Mucous: Trace (01/23/25 10:49:00) U beta hCG Ql: Negative (01/23/25 10:49:00) Diagnostic Results No qualifying data available.NormalAshtabula County Medical CenterComment on above: Result Comment: Electronically Signed By: Tico Joyner PA-C\.br\Date and Time Signed: 01/23/2514:19 EDT\.br\Electronically Co-Signed By: Pa Faye DO\.br\Date and Time Co-Signed: 01/24/25 07:04 EDTBhCG Quanton 36-40-5253Mgen hCG Qnt<3Zefhvq7-7Ighfwf [facility] Pratt HospitalComment on above:Result Comment: 'F NON < 1 - 3' ' 0.2 - 1 WEEK = 5 TO 50' ' 1 - 2 WEEKS = 50 - 500' ' 2 - 3 WEEKS = 100 - 5000' ' 3 - 4 WEEKS = 500 - 28979' ' 4 - 5 WEEKS = 1000 - 69009' ' 5 - 6 WEEKS = 40015 - 207307' ' 6 - 8 WEEKS = 81463 - 897614' ' 8 - 12 WEEKS = 00488 - 931586'Performed By: #### [id number] #### [facility] [address] [place], [place] [address]DF Clinical Summaryon 78-77-2003LE Clinical SummaryED Clinical Summary [address] [address] ED Clinical Summary Person Information Name: DIANNE VALENTE/NewTanner Age: 34 Years : 1990 Sex: Female Language: Belgian PCP: NONE, XXXX Marital Status: Single Visit Id: Visit Reason: Medical problem - minor; Test; Vaginal bleeding; POSS MISCARRIAGE- MISSED PERIOD - BLEEDING Speciality: Acuity: 5 Enc Type: Emergency Med Service: Emergency Arrival: 01/23/2025 10:41:27 Discharge: 01/23/2025 11:52:40 LOS: 000 01:11 Checkin: 01/23/2025 10:41:27 Checkout: 01/23/2025 11:52:40 Dispo Type: Home (Routine DC) EVENTS: Event Name Event Status Request Date/Time Start Date/Time Complete Date/Time Arrive Complete 01/23/2025 10:41:27 01/23/2025 10:41:27 01/23/2025 10:41:27 Document Home Meds Request 01/23/2025 10:41:27 Triage Complete 01/23/2025 10:41:27 01/23/2025 10:44:08 01/23/2025 10:44:08 Bed Assign Complete 01/23/2025 10:44:13 01/23/2025 10:44:13 01/23/2025 10:44:13 Dr Exam Complete 01/23/2025 10:44:13 01/23/2025 10:53:06 01/23/2025 10:53:06 RN Exam Complete 01/23/2025 10:44:13 01/23/2025 10:45:58 01/23/2025 10:45:58 Pending Labs Complete 01/23/2025 10:45:14 01/23/2025 10:57:02 Lab Complete 01/23/2025 10:45:14 01/23/2025 10:57:02 Urine Collect Complete 01/23/2025 10:45:14 01/23/2025 10:57:02 Registration Complete 01/23/2025 10:46:00 01/23/2025 10:46:00 01/23/2025 10:46:00 Reg Complete Request 01/23/2025 10:46:00 Reg Bed Request Complete 01/23/2025 10:46:00 01/23/2025 10:46:00 01/23/2025 10:46:00 Pending Labs Complete 01/23/2025 10:49:26 01/23/2025 10:49:26 01/23/2025 11:08:33 Lab Complete 01/23/2025 10:49:26 01/23/2025 10:49:26 01/23/2025 11:08:33 Urine Collect Complete 01/23/2025 10:49:26 01/23/2025 10:49:26 01/23/2025 11:08:33 Registration Complete 01/23/2025 10:53:06 01/23/2025 11:11:07 01/23/2025 11:11:07 Dr Exam Complete 01/23/2025 10:56:19 01/23/2025 10:56:19 01/23/2025 10:56:19 Pending Labs Collected 01/23/2025 11:08:33 01/23/2025 11:08:33 Lab Collected 01/23/2025 11:08:33 01/23/2025 11:08:33 Pending Labs Inlab 01/23/2025 11:31:56 Lab Inlab 01/23/2025 11:31:56 Discharge Complete 01/23/2025 11:47:21 01/23/2025 11:52:47 01/23/2025 11:52:47 Transfer Complete 01/23/2025 11:52:47 01/23/2025 11:52:47 01/23/2025 11:52:47 ADDRESS: [address] [place] [id number] [facility] DOC NOTES: MEDICAL INFORMATION: Prescriptions Given: PATIENT EDUCATION INFORMATION: Instructions: Abnormal Uterine Bleeding Follow up: With: Address: When: Follow-up with your SCENE SHIFTER In 3 days 01/26/2025 DIAGNOSIS: Abnormal uterine bleedingIrish Martines Medical CenterED Patient Summaryon [id number] Patient SummaryED Patient Summary [address] [address] Patient Discharge Instructions Person Information Name: DIANNE VALENTE Age: 34 Years Arrival Date: 01/23/2025 10:41:27 Discharge Diagnosis: Abnormal uterine bleeding Primary Care Physician: NONE, XXXX Provider Information Primary Provider: Pa Faye DO Advanced Entry Examiner:Tico Joyner PA-C The exam and treatment you received in the Emergency Department were for an urgent problem and are not intended as complete care. It is important that you follow up with a doctor, nurse practitioner,or physician???s medical staff assistant for ongoing care. If your symptoms become worse or you do not improve asexpected and you are unable to reach your usual health care provider, you should return to the Emergency Department. We are available 24 hours a day. DIANNE VALENTE has been given the following list of patient education materials, prescriptions andfollow-up instructions: Follow-up Instructions: With: Address: When: Follow-up with your SCENE SHIFTER In 3 days 01/26/2025 In the event that this physician does not participate in your insurance network, please consult with your insurance company to find a nearby participating provider. Patient Education Materials: Abnormal Uterine Bleeding A MESSAGE TO ALL PATIENTS REGARDING OPIOIDS PRESCRIPTION OPIOIDS: WHAT YOU NEED TO KNOW Prescription opioids can be used to help relieve xxtrtozx-fg-cjvlmq pain and are often prescribed following a surgery or injury, or for certain health conditions. These medications can be an important part of the treatment but also come with serious risks. It is important to work with your healthcare provider to make sure you are getting the safest, most effective care. WHAT ARE THE RISKS AND SIDE EFFECTS OF OPIOID USE? Prescription opioids carry serious risks of addiction and overdose, especially with prolonged use. An opioid overdose, often marked by slowed breathing, can cause sudden . The use of prescription opioids can have a number of side effects as well, even when taken as directed: ??? Tolerance???meaning you might need to take more of the medication for the same pain relief ??? Physical dependence???meaning you have symptoms of withdrawal when a medication is stopped ??? Increased sensitivity to pain ??? Constipation ??? Nausea, vomiting, and dry mouth ??? Sleepiness and dizziness ??? Confusion ??? Depression ??? Low levels of testosterone that can result in lower sex drive, energy, and strength ??? Itching and sweating RISKS ARE GREATER WITH: ??? History of drug misuse, substance use disorder, or overdose ??? Mental health conditions (such as depression or anxiety) ??? Sleep apnea ??? Older age (65 years and older) ??? Avoid alcohol while taking prescription opioids. Also, unless specifically advised by your health care provider, medications to avoid include: ??? Benzodiazepines (such as Xanax or Valium) ??? Muscle relaxants (such as Soma or Flexeril) ??? Hypnotics (such as Ambien or Lunesta) ??? Other prescription opioids KNOW YOUR OPTIONS Talk to your health care provider about ways to manage your pain that don???t involve prescription opioids. Some of these options may actually work better and have fewer risks and side effects. Options may include: ??? Pain relievers such as acetaminophen, ibuprofen, and naproxen ??? Some medication that are also used for depression or seizures ??? Physical therapy and exercise ??? Cognitive behavioral therapy, a psychological, goal-directed approach, in which patients learn how to modify physical, behavioral, and emotional triggers of pain and stress. IF YOU ARE PRESCRIBED OPIOIDS FOR PAIN: ??? Never take opioids in greater amounts or more often than prescribed. ??? Follow up with your primary health care provider. o Work together to create a plan on how to manage your pain. o Talk about ways to help manage your pain that don???t involve prescription opioids. o Talk about any and all concerns and side effects. ??? Help prevent misuse and abuse o Never sell or share prescription opioids. o Never use another person???s prescription opioids. ??? Store prescription opioids in a secure place and out of reach of others (this may include visitors, children, friends, and family). ??? Safely dispose of unused prescription opioids: Find your community drug take-back program or your pharmacy mail-back program, or flush them down the toilet, following guidance from the Food and Drug Administration (www.fda.gov/Drugs/ResourcesForYou). ??? Visit www.cdc.gov/drugoverdose to learn about the risks of opioids abuse and overdose. ??? If you believe you may be struggling with addiction, tell your health point of care specialist and askfor guidance or call [facility]???S National Helpline at (more content not included)...NormalAshtabula County Medical CenterU BetaHcg Qualon 01-23-2025U beta hCG QlNegativeNormalAshtabula County Medical CenterComment on above:Performed By: #### [id number] #### [facility] [address] [place] [address], [place] [address]PR with Cult Rflxon 03-36-5366Hniec (U)YellowNormalYellowAshtabula County Medical CenterComment on above:Order Comment: Added by Discern Expert Result Comment: Microscopic readings are only performed on those samples that meet specific criteria set forth by [facility]. Performed By: #### [id number] #### [facility] [address] [place], [place] [address]Xugqxzz (U) [Mass/Vol]NegativeNormalNegNationwide Children's HospitalComment on above:Order Comment: Added by Cynthia ExpertPerformed By: #### [id number] #### [facility] [address] [place], [place] [address]Bqxnqil Ql (U)NegativeRegency Hospital Cleveland West Comment on above:Order Comment: Added by Cynthia ExpertPerformed By: #### [id number] #### [facility] [address] [place], [place] [address]OW Blood2+ mg/dLAbnoMercy Health Fairfield Hospital Comment on above:Order Comment: Added by Cynthia ExpertPerformed By: #### [id number] #### [facility] [address] [place], [place] [address]VE ClarityClearNormalClearAshtabula County Medical CenterComment on above:Order Comment: Added by Cynthia ExpertPerformed By: #### [id number] #### [facility] [address] [place], [place] [address]DI Leuk Est75 Cristobal/uLAbnormalNegNationwide Children's Hospital Comment on above:Order Comment: Added by Discern ExpertPerformed By: #### [id number] #### [place] [address] [place], [place] [address]OW MucousTraceNormalNegativeAshtabula County Medical CenterComment on above:Order Comment: Added by Discern ExpertPerformed By: #### [id number] #### [facility] [address] [place] [id number] NitriteNegativeNormalNegativeAshtabula County Medical Center Comment on above:Order Comment: Added by Discern ExpertPerformed By: #### [id number] #### [facility] [address] [place] [address], [place] [address]HS pH5.5Invalid Interpretation Code5.0-9.0Ashtabula County Medical CenterComment on above:Order Comment: Added by Cynthia ExpertPerformed By: #### [id number] #### [facility] [address] [place], [place] [address]VZ ProteinNegativeNormalNegNationwide Children's Hospital Comment on above:Order Comment: Added by Cynthia ExpertPerformed By: #### [id number] #### [facility] [address] [place], [place] [address]ZO NTZ3-75Nkplczme5-4Ajukla [facility] Pr[facility] HospitalComment on above:Order Comment: Added by Cynthia ExpertPerformed By: #### [id number] #### [facility] [address] [place], [place] [address]AV Spec Grav1.035Invalid Interpretation Code1.005-1.030Ashtabula County Medical CenterComment on above:Order Comment: Added by Cynthia Expert Performed By: #### [id number] #### [facility] [address] [place], [place] [address]IE Squam Epithelial>10Invalid Interpretation CodeAshtabula County Medical CenterComment on above:Order Comment: Added by Cynthia ExpertPerformed By: #### [id number] #### [facility] [address] [place], [place] [address]IR UrobilinogenNegativeNormalNegativeAshtabula County Medical CenterComment on above:Order Comment: Added by Cynthia ExpertPerformed By: #### [id number] #### [facility] [address] [place], [place] [address]OI BNX1-2Afnqlw6-4Kchslr [facility] Pr[facility] HospitalComment on above: Order Comment: Added by Cynthia ExpertPerformed By: #### [id number] #### [facility] [address] [place], [place] [address]Szuxutrhnufb (U) [Mass/Vol]NegativeNormalNegativeAshtabula County Medical CenterComment on above:Order Comment: Added by Cynthia ExpertPerformed By: #### [id number] #### [facility] [address] [place], [place] [address]IZ with Cult Rflx SPon 20-94-5468FC Spec DescClean CatchNormal Ashtabula County Medical CenterComment on above:Performed By: #### [id number] #### [facility] [address] [place], [place] [address]Jdvrbqv aminotransferase [Enzymatic activity/volume] in Serum or PlasmaOrdered By: Luanne Groves on 47-46-3389CYT [Catalytic activity/Vol] Alanine aminotransferase [Enzymatic activity/volume] in Serum or PlasmaLow7-52 [facility] FoundationAlbumin [Mass/volume] in Serum or Plasma by Bromocresol green (BCG) dye binding methoOrdered By: Luanne Groves on 05-24-2024 Albumin BCG dye [Mass/Vol]Albumin [Mass/volume] in Serum or Plasma by Bromocresol green (BCG) dye binding metho3.5-5.7FEast Ohio Regional HospitalAlkaline phosphatase [Enzymatic activity/volume] in Serum or PlasmaOrdered By: Luanne Groves on 28-46-8948NXL [Catalytic activity/Vol]Alkaline phosphatase [Enzymatic activity/volume] in Serum or Rulykl10-327SnqgtqcqeCleveland Clinic FoundationAppearance of UrineOrdered By: Luanne Groves on 36-66-7651Jjbyupzqak (U) Urine appearanceAbnormalCMercy Health Springfield Regional Medical CenterAspartate aminotransferase [Enzymatic activity/volume] in Serum or PlasmaOrdered By: Luanne Groves on 08-80-5794LZO [Catalytic activity/Vol]Aspartate aminotransferase [Enzymatic activity/volume] in Serum or Fgsenn78-77GhitvgukqCleveland Clinic FoundationBacteria [Presence] in Urine by AutomatedOrdered By: Luanne Groves on 98-61-0636Hhebqldd Auto Ql (U)Bacteria [Presence] in Urine by AutomatedHighNone SeenCleveland Clinic FoundationBasophils Auto (Bld) [#/Vol]Ordered By: Luanne Groves on 68-27-6306Jwclloscj (Bld) [#/Vol]Automated basophil count 0.0-0.2FEast Ohio Regional HospitalBasophils/100 WBC Auto (Bld)Ordered By: Luanne Groves on 37-78-7190Istqotqae/100 WBC (Bld)Automated basophil %.C[facility] Clinic FoundationBilirubin Test strip Ql (U)Ordered By: Luanne Groves on 74-14-1242Vjktvnzyq Ql (U)Bilirubin.total [Presence] in Urine by Test strip NegativeCleveland Clinic FoundationBilirubin.total [Mass/volume] in Serum or PlasmaOrdered By: Luanne Groves on 78-11-6813Jpgajhmxv [Mass/Vol] Bilirubin.total [Mass/volume] in Serum or Plasma0.3-1.0C[facility] Clinic FoundationCOVID Cepheid NegativeOrdered By: Aditi Childers on 05-24-2024 SARS-CoV-2 (COVID-19) Ab IA QlCOVID CepheidNegativeCleveland Clinic FoundationComment on above:This is a duplicate Cepheid Xpert Xpress CoV-2/Flu/RSV Plus RNA by RT-PCR result to be used for statistical tracking purpose only. COVID-19 / Flu A/B / RSV PCRon 41-76-6738SFWT-CoV-2 (COVID-19) RNA INGRID+probe Ql (Unsp spec)COVID-19 Cepheid Result Negative for SARS-CoV-2 RNA by RT-PCR Flu A Cepheid Result Negative for Flu A RNA by RT-PCR Flu B Cepheid Result Negative for Flu B RNA by RT-PCR RSV Cepheid Result Negative for RSV RNA by RT-PCR COVID19 Blank Space Reference: Negative COVID19 Blank Space Cepheid Disclaimer The Cepheid Xpert Xpress CoV-2/Flu/RSV Plus has Cepheid Disclaimer not been FDA cleared or approved; this test has Cepheid Disclaimer been authorized by FDA under an EUA for use by Cepheid Disclaimer authorized laboratories; this test has been Cepheid Disclaimer authorized only for the simultaneous qualitative Cepheid Disclaimer detection and differentiation of nucleic acids from Cepheid Disclaimer SARS-CoV-2, influenza A, influenza B, and Cepheid Disclaimer respiratory syncytial virus (RSV), and not for any Cepheid Disclaimer other viruses or pathogens; and this test is only Cepheid Disclaimer authorized for the duration of the declaration that Cepheid Disclaimer circumstances exist justifying the authorization of Cepheid Disclaimer emergency use of in vitro diagnostic tests for Cepheid Disclaimer detection and/or diagnosis of COVID-19 under Cepheid Disclaimer Section 564(b)(1) of the Act, 21 U.S.C. 360bbb- Cepheid Disclaimer 3(b)(1), unless the authorization is terminated or Cepheid Disclaimer revoked sooner. PERFORMED BY: [place] [address] PATHOLOGIST CARTON FORMING MACHINE HELPER JOSE HERCULES M.D.Medical Center Clinic Physician GroupComment on above: Performed By: #### CEPHEID NEG, COVID19 FLU RSV #### [place] [id number] USACT abdomen pelvis w conon 62-03-1232ZE abdomen pelvis w [facility] [place] [address] [place] [address] CT Scan Report Signed Patient: Dianne Valente MR#: [id number] : 1990 Acct:[id number] Age/Sex: 33 / F ADM Date: 05/24/24 Loc: ER Room: Type: [facility] ER Attending Dr: Copies to: Aditi Childers APRN Ordering Provider: Aditi Childers APRN Date of Service: 05/24/24 CT/CT abdomen pelvis w con: abdominal pain CT ABDOMEN AND PELVIS WITH INTRAVENOUS CONTRAST: CLINICAL HISTORY: Right lower quadrant pain and vomiting since yesterday. COMPARISON: None TECHNIQUE: Spiral images were obtained through the abdomen and pelvis following the administration of intravenous contrast. This CT exam was performed using one or more following dose reduction techniques: Automated exposure control, adjustment of the mA and/or kV according to patient size, or use of iterative reconstruction technique. FINDINGS: Lung Bases: [Bibasilar atelectasis.] Organs:Liver gallbladder portal vein pancreas spleen adrenal glands kidneys and aorta all appear unremarkable.[ GI: Stomach is grossly unremarkable. Small bowel appears nondilated. Appendix is normal. No acute colonic abnormality.[ Pelvis:[Uterus and urinary bladder appear unremarkable. No adnexal mass.] Peritoneum/Retroperitoneum:No free air or free fluid or lymphadenopathy.[ Abd wall/Bones:Abdominal wall demonstrate no acute findings. Osseous structures demonstrate no acute process.[ CT/CT abdomen pelvis w con IMPRESSION: No acute process. No evidence of acute appendicitis. Impression dictated by: Gabino Bunch Jr., D.O.05/24/2024 10:30 AM Dictation Location: [place] [address] Transcribed By: [facility] 05/24/24 1030 Dictated By: Gabino Bunch Jr, DO 05/24/24 1028 Signed By: 05/24/24 1030Medical Center Clinic Physician GroupCalcium [Mass/volume] in Serum or PlasmaOrdered By: Luanne Groves on 85-60-5264Uuwdksm [Mass/Vol]Calcium [Mass/volume] in Serum or Plasma8.6-10.3FEast Ohio Regional HospitalCarbon dioxide, total [Moles/volume] in Serum or PlasmaOrdered By: Luanne Groves on 77-96-1565KO7 [Moles/Vol]Carbon dioxide, total [Moles/volume] in Serum or Plasma 21.0-31.0C[facility] Clinic FoundationCasts [Presence] in Urine by Automated Ordered By: Luanne Groves on 59-20-6382Ikaii Auto Ql (U)Casts [Presence] in Urine by AutomatedPaulding County HospitalCepheid COVID PCR Negativeon 90-78-0733MKDK-CoV-2 (COVID-19) RNA INGRID+probe Ql (Unsp spec) NegativeNormalNegativeThe Community Health Physician GroupComment on above:Result Comment: This is a duplicate Cepheid Xpert Xpress CoV-2/Flu/RSV Plus RNA by RT-PCR result to be used for statistical tracking purpose only. PERFORMED BY: [facility] [address] [place] [address] PATHOLOGIST CARTON FORMING MACHINE HELPER JOSE HERCULES M.D.Performed By: #### CEPHEID NEG, COVID19 FLU RSV #### [facility] [address] [place] [address] USAChloride [Moles/volume] in Serum or PlasmaOrdered By: Luanne Groves on 58-83-4209Kfqvnvzl [Moles/Vol]Chloride [Moles/volume] in Serum or CtmlfmTlfa05-679Thdweggrd98 Bryant StreetColor Auto (U)Ordered By: Luanne Groves on 19-30-4010Segce (U)Color of Urine by AutoYellowCleveland Clinic FoundationComplete Blood Count Auto Diffon 94-98-2072Fkyfiwdje (Bld) [#/Vol] 0.0 10*3/uLNormal0.0-0.2The Community Health Physician GroupComment on above:Result Comment: PERFORMED BY: [facility] [address] [place] [address] PATHOLOGIST C[employer]ON FORMING MACHINE HELPER JOSE HERCULES M.D.Performed By: #### CMP, MG, LIPASE, CBC ####[facility] [address] [place] [address] USABasophils/100 WBC (Bld)0.4 %Normal.The Community Health Physician GroupComment on above:Performed By: #### CMP, MG, LIPASE, CBC ####[place] [id number] USAEosinophils (Bld) [#/Vol]0.4 10*3/uLNormal0.0-0.45 The Community Health Physician GroupComment on above:Performed By: #### CMP, MG, LIPASE, CBC ####[place] [id number] USAEosinophils/100 WBC (Bld)4.7 %Normal.[facility] Comment on above:Performed By: #### CMP, MG, LIPASE, CBC ####[place] [id number] USAErythrocyte distribution width (RBC) [Ratio]13.0 %Qrirdr18.9-15.3The Community Health Physician GroupComment on above:Performed By: #### CMP, MG, LIPASE, CBC ####[place] [id number] USAHematocrit (Bld) [Volume fraction]37.5 %Askmkn34.0-46.4The Community Health Physician GroupComment on above:Performed By: #### CMP, MG, LIPASE, CBC ####[place] [id number] USAHemoglobin (Bld) [Mass/Vol]13.2 g/oFRxdbfi49.8-15.4 The Community Health Physician GroupComment on above:Performed By: #### CMP, MG, LIPASE, CBC ####[place] [id number] USALymphocytes (Bld) [#/Vol]2.2 10*3/uLNormal1.00-4.8The Community Health Physician GroupComment on above:Performed By: #### CMP, MG, LIPASE, CBC ####[place] [id number] [place] Lymphocytes/100 WBC (Bld)27.2 %Normal.The Community Health Physician GroupComment on above:Performed By: #### CMP, MG, LIPASE, CBC ####[address] [place] [address] USAMCH (RBC) [Entitic mass]30.5 pgNormal 24.7-34.3The Community Health Physician GroupComment on above:Performed By: #### CMP, MG, LIPASE, CBC ####[address] (RBC) [Entitic vol]86.5 zFSrhwlw65-081Rrv [facility] Comment on above:Performed By: #### CMP, MG, LIPASE, CBC ####[place] [id number] USAMean Corpuscular HGB Conc35.2 g/yBDbrv71.0-35.0The Community Health Physician GroupComment on above:Performed By: #### CMP, MG, LIPASE, CBC ####[place] [id number] USAMonocytes (Bld) [#/Vol]0.5 10*3/uLNormal0.0-0.8The Community Health Physician GroupComment on above:Performed By: #### CMP, MG, LIPASE, CBC ####[place] [id number] [place] Monocytes/100 WBC (Bld)16.66 %Normal0.00-20.00The [facility] Comment on above:Performed By: #### CMP, MG, LIPASE, CBC ####[place] [id number] USAMonocytes/100 WBC (Bld)6.7 % Normal.The Community Health Physician GroupComment on above:Performed By: #### CMP, MG, LIPASE, CBC ####[place] [id number] USANeutrophils (Bld) [#/Vol]5.0 10*3/uLNormal1.8-7.7The [facility] Health Physician GroupComment on above:Performed By: #### CMP, MG, LIPASE, CBC ####[place] [id number] [place] Neutrophils/100 WBC (Bld)61.0 %Normal.The [facility] Health Physician GroupComment on above:Performed By: #### CMP, MG, LIPASE, CBC ####[place] [id number] USANRBC%0.1 /100{WBC}Normal0-0.5The [facility] Health Physician GroupComment on above:Performed By: #### CMP, MG, LIPASE, CBC ####[address] Platelet mean volume (Bld) [Entitic vol]8.0 fLNormal6.3-10.7The [facility] Health Physician GroupComment on above:Performed By: #### CMP, MG, LIPASE, CBC ####[address] Platelets (Bld) [#/Vol]240 10*3/bTBclyzx093-545Qwy [facility] Comment on above:Performed By: #### CMP, MG, LIPASE, CBC ####[place] [id number] USARBC (Bld) [#/Vol]4.33 10*6/uL Normal3.60-5.00The [facility] Health Physician GroupComment on above:Performed By: #### CMP, MG, LIPASE, CBC ####[place] [id number] USAWBC (Bld) [#/Vol]8.2 10*3/uLNormal3.8-11.6The [facility] Health Physician GroupComment on above:Performed By: #### CMP, MG, LIPASE, CBC ####[address] Comprehensive Metabolic Panelon 06-64-3303Hfjhsgw [Mass/Vol]4.0 g/dLNormal 3.5-5.7The [facility] Health Physician GroupComment on above:Performed By: #### CMP, MG, LIPASE, CBC ####[place] [id number] USAAlbumin/Globulin [Mass ratio]1.4 {ratio}NormalThe Community Health Physician GroupComment on above:Performed By: #### CMP, MG, LIPASE, CBC ####[place] [id number] USAALP [Catalytic activity/Vol]49 U/CTfqvcr15-622Rwm [facility]ician GroupComment on above: Performed By: #### CMP, MG, LIPASE, CBC ####[place] [id number] USAALT [Catalytic activity/Vol]6 U/LLow7-52The [facility] Health Physician GroupComment on above:Performed By: #### CMP, MG, LIPASE, CBC ####[place] [id number] [place] Anion gap [Moles/Vol]7.3 mmol/LNormal6.0-15.0The [facility] Comment on above:Performed By: #### CMP, MG, LIPASE, CBC ####[place] [id number] USAAST [Catalytic activity/Vol]16 U/WBjuyim79-83Rof [facility]ician GroupComment on above:Performed By: #### CMP, MG, LIPASE, CBC ####[place] [id number] USABilirubin [Mass/Vol]0.4 mg/dLNormal0.3-1.0The [facility] Health Physician GroupComment on above:Performed By: #### CMP, MG, LIPASE, CBC ####[place] [id number] [place] Calcium [Mass/Vol]8.8 mg/dLNormal8.6-10.3The [facility] Health Physician GroupComment on above:Performed By: #### CMP, MG, LIPASE, CBC ####[place] [id number] USAChloride [Moles/Vol]108 mmol/LHigh 98-107The [facility] Health Physician GroupComment on above:Performed By: #### CMP, MG, LIPASE, CBC ####[place] [id number] USACO2 [Moles/Vol]25.6 mmol/GIndzeg74.0-31.0The [facility] Comment on above:Performed By: #### CMP, MG, LIPASE, CBC ####[place] [id number] USACreatinine [Mass/Vol]0.82 mg/dLNormal0.60-1.20ThSt. Luke's Jerome Physician GroupComment on above:Performed By: #### CMP, MG, LIPASE, CBC ####[place] [id number] USACreatinine Clr Calc Effavryk92.99NormMercy Health Defiance Hospitale [facility] GroupComment on above:Performed By: #### CMP, MG, LIPASE, CBC ####[place] [id number] [place] GFR/1.73 sq M.predicted MDRD (S/P/Bld) [Vol rate/Area]mL/min/{1.73_m2}NormalThe [facility] Health Physician GroupComment on above:Performed By: #### CMP, MG, LIPASE, CBC ####[place] [id number] [place] Globulin (S) [Mass/Vol]2.8 g/dLNoAtrium Health Physician Ochsner Rush HealthComment on above:Performed By: #### CMP, MG, LIPASE, CBC ####[place] [id number] USAGlucose [Mass/Vol]91 mg/rJHdnbui75-293 The [facility] Health Physician GroupComment on above:Result Comment: Random Glucose Reference Range is dependent on time and content of last meal. Glucose of more than 200 mg/dL in a nonstressed, ambulatory subject supports the diagnosis of Diabetes Mellitus. ADA recommended reference rangePerformed By: #### CMP, MG, LIPASE, CBC ####[place] [id number] [place] Potassium [Moles/Vol]3.9 mmol/LNormal3.5-5.1The [facility] Physician GroupComment on above:Performed By: #### CMP, MG, LIPASE, CBC ####[place] [id number] USAProtein [Mass/Vol]6.8 g/dLNormal 6.4-8.9The [facility] Health Physician GroupComment on above:Performed By: #### CMP, MG, LIPASE, CBC ####[facility] [place] [address] USASodium [Moles/Vol]137 mmol/QDkogmu386-921Ngd [facility] Comment on above:Performed By: #### CMP, MG, LIPASE, CBC ####[facility] [place] [address] USAUrea nitrogen [Mass/Vol]14 mg/dLNormal7-25The [facility] Physician GroupComment on above:Performed By: #### CMP, MG, LIPASE, CBC ####[facility] [place] [address] USACreatinine [Mass/volume] in Serum or PlasmaOrdered By: Luanne Groves on 47-84-7695Akfdahzfws [Mass/Vol]Creatinine [Mass/volume] in Serum or Plasma0.60-1.20[facility] FoundationDipstick and Microscopicon 03-87-1160Wzhsiiofwf (U)CloudyCritically abnormalClearThe [facility] Health Physician GroupComment on above:Order Comment: Name Collection Type:: Clean-Voided MidstreamPerformed By: #### ADDONUAPLUS, UHCG, CUU #### [facility] [address] [place] [address] USABacteria,Urine1+HighNone SeenThe [facility] Comment on above:Order Comment: Name Collection Type:: Clean-Voided Midstream Performed By: #### ADDONUAPLUS, UHCG, CUU #### [facility] [address] [place] [address] USABilirubin,UrineNegativeNormalNegativeThe [facility] Physician GroupComment on above:Order Comment: Name Collection Type:: Clean- Voided MidstreamPerformed By: #### ADDONUAPLUS, UHCG, CUU #### [facility] [address] [place] [address] USAColor (U)YellowNormalYellowHca Florida Plantation [facility] Comment on above:Order Comment: Name Collection Type:: Clean-Voided Midstream Performed By: #### ADDONUAPLUS, UHCG, CUU #### [facility] [address] [place] [address] USAGlucose Ql (U)NormalNormalNormalThe [facility]ician GroupComment on above:Order Comment: Name Collection Type:: Clean-Voided MidstreamPerformed By: #### ADDONUAPLUS, UHCG, CUU #### [facility] [address] [place] [address] USAHyaline Casts,UrineNoneNormal0-8The [facility]ician GroupComment on above:Order Comment: Name Collection Type:: Clean-Voided MidstreamPerformed By: #### ADDONUAPLUS, UHCG, CUU #### [facility] [address] [place] [address] USAKetones Ql (U)NegativeNormalNegativeHca Florida Plantation Emergency Physician GroupComment on above:Order Comment: Name Collection Type:: Clean- Voided MidstreamPerformed By: #### ADDONUAPLUS, UHCG, CUU #### [facility] [address] [place] [address] USALeukocyte esterase Test strip Ql (U)4+HighNegativeHca Florida Plantation Emergency Physician GroupComment on above:Order Comment: Name Collection Type:: Clean-Voided MidstreamPerformed By: #### ADDONUAPLUS, UHCG, CUU #### [place] [address] USAMucus,UrineRareNormalThe [facility]ician GroupComment on above:Order Comment: Name Collection Type:: Clean-Voided MidstreamPerformed By: #### ADDONUAPLUS, UHCG, CUU #### [place] [address] USANitrite,UrineNegativeNormalNegativeHca Florida Plantation Emergency Physician GroupComment on above:Order Comment: Name Collection Type:: Clean-Voided MidstreamPerformed By: #### ADDONUAPLUS, UHCG, CUU #### [facility] [address] [place], [place] [address] USAOccult Blood,Urine1+HighNegativeThe [facility] Physician GroupComment on above:Order Comment: Name Collection Type:: Clean-Voided MidstreamPerformed By: #### ADDONUAPLUS, UHCG, CUU #### [facility] [address] [place] [address] USAOther Casts,Urine1 [LPF]HighNone SeenThe [facility] Health Physician GroupComment on above:Order Comment: Name Collection Type:: Clean- Voided MidstreamPerformed By: #### ADDONUAPLUS, UHCG, CUU #### [facility] [address] [place] [address] USApH (U)5.5 [pH]Normal5.0-9.0The [facility] Comment on above:Order Comment: Name Collection Type:: Clean-Voided Midstream Performed By: #### ADDONUAPLUS, UHCG, CUU #### [place] [address] USAProtein,UrineNegativeNormalNegativeThe [facility] GroupComment on above:Order Comment: Name Collection Type:: Clean-Voided MidstreamPerformed By: #### ADDONUAPLUS, UHCG, CUU #### [place] [id number] USARBC,Urine3 [HPF]Normal0-4The [facility] Comment on above:Order Comment: Name Collection Type:: Clean-Voided Midstream Performed By: #### ADDONUAPLUS, UHCG, CUU #### [facility] [address] [place], [place] [address] USASpecificy [place],Urine1.582Tsmzqh8.001-1.030The [facility]ician GroupComment on above:Order Comment: Name Collection Type:: Clean- Voided MidstreamPerformed By: #### ADDONUAPLUS, UHCG, CUU #### [place] [id number] USASquamous Epithelial Cell,Urine10 [HPF]High0-2The [facility]ician GroupComment on above:Order Comment: Name Collection Type:: Clean- Voided MidstreamPerformed By: #### ADDONUAPLUS, UHCG, CUU #### [facility] [address] [place] [address] USAUrobilinogen,UrineNormalNormalNormHendry Regional Medical Center Physician GroupComment on above:Order Comment: Name Collection Type:: Clean- Voided MidstreamPerformed By: #### ADDONUAPLUS, UHCG, CUU #### [facility] [address] [place] [address] USAWBC,Urine5 [HPF]High0-4ThSt. Luke's Jerome [facility] Comment on above:Order Comment: Name Collection Type:: Clean-Voided Midstream Performed By: #### ADDONUAPLUS, UHCG, CUU #### [facility] [address] [place] [address] USAECG 12 lead ECGon 19-22-3539TMN 12 lead ECGPROMEDICA [facility] [place] [address] [place], [place] [address] Electrocardiograph Report Signed Patient: Dianne Valente MR#: [id number] 99 : 1990 Acct:[id number] Age/Sex: 33 / F ADM Date: 05/24/24 Loc: ER Room: [facility] ER Attending Dr: Ordering Provider: Aditi Childers APRN Date of Service: 05/24/2408/12/909 ECG/ECG 12 lead ECG: Nausea/Vomiting/Diarrhea Copies to: Test Reason : Blood Pressure : */* mmHG Vent. Rate : 80 BPM Atrial Rate : 80 BPM P-R Int : 144 ms QRS Dur : 76 ms QT Int : 374 ms P-R-T Axes : 68 81 36 degrees QTcB Int : 431 ms Normal sinus rhythm Normal ECG When compared with ECG of 04-Mar-2022 22:30, No significant change was found Confirmed by LUANNE GROVES DO ([id number]) on 05/24/2024 4:02:26 PM Referred By: Electronically Signed By: LUANNE GROVES DO Transcribed By: MUS Signed By Luanne Groves DO 05/[address] [place] [address] Physician GroupEosinophils Auto (Bld) [#/Vol]Ordered By: Luanne rGoves on 34-14-8249Mengpotpubk (Bld) [#/Vol]Automated eosinophil count0.0-0.45[facility] FoundationEosinophils/100 WBC Auto (Bld) Ordered By: Luanne Groves on 29-49-2139Lnmgpvuepwo/100 WBC (Bld)Automated eosinophil %.[facility] FoundationEpithelial cells.squamous [#/area] in Urine sediment by Automated countOrdered By: Luanne Groves on 05-24-2024 Epithelial cells.squamous Auto (Urine sed) [#/Area]Epithelial cells.squamous [#/area] in Urine sediment by Automated countHigh0-2FEast Ohio Regional HospitalErythrocyte distribution width Auto (RBC) [Ratio]Ordered By: Luanne Groves on 05-41-8441Dlljqueiugc distribution width (RBC) [Ratio]Erythrocyte distribution width [Ratio] by Automated count11.9-15.3FEast Ohio Regional HospitalErythrocytes [#/area] in Urine sediment by Automated countOrdered By: Luanne Groves on 48-80-7667NPY Auto (Urine sed) [#/Area]Erythrocytes [#/area] in Urine sediment by Automated count0-4FEast Ohio Regional HospitalGlobulin Calc (S) [Mass/Vol]Ordered By: Luanne Groves on 10-71-4914Jxsnhvha (S) [Mass/Vol]Serum globulin measurement by calculation (mass/volume)[facility] FoundationGlucose [Mass/volume] in Serum or PlasmaOrdered By: Luanne Groves on 65-78-4502Lrmbuky [Mass/Vol]Glucose [Mass/volume] in Serum or Plasma 70-100[facility] FoundationComment on above:ADA recommended reference rangeRandom Glucose Reference Range is dependent on time and content of last meal. Glucose of more than 200 mg/dL in a nonstressed, ambulatory subject supports the diagnosisof Diabetes Mellitus.Glucose [Mass/volume] in Urine by Test stripOrdered By: Luanne Groves on 28-81-8572Afshgkg Test strip (U) [Mass/Vol]Glucose [Mass/volume] in Urine by Test stripNoalCleveland Clinic FoundationHCG ( test) IA.rapid Ql (U)Ordered By: Luanne Groves on 48-23-2618BYG ( test) Ql (U)Urine human chorionic gonadotropin (hCG) detection by immunoassayCleveland Clinic FoundationHCG,Urineon 05-24-2024 Beta HCG ( test) Ql (U)NegativeNormHendry Regional Medical Center [facility] Comment on above:Order Comment: Name Collection Type:: Clean-Voided Midstream Result Comment: PERFORMED BY: [place] [address] PATHOLOGIST [employer] HELPER JOSE HERCULES M.D.Performed By: #### EMY, CG, CUU #### [place] [address] USAHematocrit Auto (Bld) [Volume fraction]Ordered By: Luanne Groves on 39-93-9896Zdazokpaqy (Bld) [Volume fraction]Hematocrit [Volume Fraction] of Blood by Automated count34.0-46.4FEast [facility] Hospital Hemoglobin Test strip Ql (U)Ordered By: Luanne Groves on 65-24-0981Utbomwarfg Ql (U)Hemoglobin [Presence] in Urine by Test stripHighNegativeCleveland Clinic FoundationHemoglobin [Mass/volume] in BloodOrdered By: Luanne Groves on 92-81-9960Jrezoyjynq (Bld) [Mass/Vol]Hemoglobin [Mass/volume] in Blood11.8-15.4 [facility] FoundationHyaline casts [#/area] in Urine sediment by Automated countOrdered By: Luanne Groves on 06-36-6529Chakgjg casts Auto (Urine sed) [#/Area]Hyaline casts [#/area] in Urine sediment by Automated count0-8 [facility] FoundationKetones Test strip Ql (U)Ordered By: Luanne Groves on 01-10-1224Uxyjkjk Ql (U)Ketones [Presence] in Urine by Test strip NegativeCleveland Clinic FoundationLeukocyte esterase [Presence] in Urine by Test stripOrdered By: Luanne Groves on 52-88-8522Ahcrguzso esterase Test strip Ql (U)Leukocyte esterase [Presence] in Urine by Test stripHighNegative [facility] FoundationLeukocytes [#/area] in Urine sediment by Automated countOrdered By: Luanne Groves on 93-83-3630ARA Auto (Urine sed) [#/Area]Leukocytes [#/area] in Urine sediment by Automated countHigh0-4FEast Ohio Regional HospitalLeukocytes [#/volume] corrected for nucleated erythrocytes in Blood by Automated counOrdered By: Luanne Groves on 05-24-2024 WBC corrected for nucl RBC Auto (Bld) [#/Vol]Leukocytes [#/volume] corrected for nucleated erythrocytes in Blood by Automated coun3.8-11.6FEast Ohio Regional HospitalLipaseon 53-07-0495Pklkbg [Catalytic activity/Vol]6.0 U/LLow 11.0-82.0The [facility] Physician GroupComment on above:Result Comment: PERFORMED BY: [facility] [address] [place] [address] PATHOLOGIST [employer] HELPER JOSE HERCULES M.D.Performed By: #### CMP, MG, LIPASE, CBC ####[facility] [address] [place] [address] USALipase [Enzymatic activity/volume] in Serum or PlasmaOrdered By: Aditi Childers on 25-45-0921Tahbfl [Catalytic activity/Vol]Lipase [Enzymatic activity/volume] in Serum or PlasmaLow 11.0-82.0[facility] FoundationLymphocytes Auto (Bld) [#/Vol]Ordered By: Luanne Groves on 95-74-4317Jitvtfklepk (Bld) [#/Vol]Lymphocytes [#/volume] in Blood by Automated count1.00-4.8[facility] Lymphocytes/100 WBC Auto (Bld)Ordered By: Luanne Groves on 05-24-2024 Lymphocytes/100 WBC (Bld)Lymphocytes/100 leukocytes in Blood by Automated count. [facility] Auto (RBC) [Entitic mass]Ordered By: Luanne Groves on 44-47-0517HYP (RBC) [Entitic mass]MCH [Entitic mass] by Automated count24.7-34.3FEast Ohio Regional HospitalMCHC Auto (RBC) [Mass/Vol]Ordered By: Luanne Groves on 09-28-2138KPKE (RBC) [Mass/Vol]MCHC [Mass/volume] by Automated benxxGbmw43.0-35.0[facility] FoundationMCV Auto (RBC) [Entitic vol]Ordered By: Luanne Groves on 54-42-4236OYF (RBC) [Entitic vol]MCV [Entitic volume] by Automated -595OpxhrzxjqCleveland Clinic Foundation Magnesiumon 04-26-6879Mytppvthf [Mass/Vol]1.9 mg/dLNormal1.9-2.7The [facility] Physician GroupComment on above:Performed By: #### CMP, MG, LIPASE, CBC ####[facility] [address] [place] [id number] [facility] Magnesium [Mass/volume] in Serum or PlasmaOrdered By: Aditi Childers on 05-24-2024 Magnesium [Mass/Vol]Magnesium [Mass/volume] in Serum or Plasma1.9-2.7FEast Ohio Regional HospitalMonocyte distribution width [Entitic volume] in Blood by AutomatedOrdered By: Luanne Groves on 26-71-0034Oktveixx distribution width Auto (Bld) [Entitic vol]Monocyte distribution width [Entitic volume] in Blood by Automated0.00-20.00[facility] FoundationMonocytes Auto (Bld) [#/Vol] Ordered By: Luanne Groves on 40-23-8111Waakuuoit (Bld) [#/Vol]Automated blood monocyte count0.0-0.8[facility] FoundationMonocytes/100 WBC Auto (Bld)Ordered By: Luanne Groves on 90-51-2688Kbfaoayvz/100 WBC (Bld)Automated monocyte %.[facility] FoundationMucus [Presence] in Urine by AutomatedOrdered By: Luanne Groves on 55-73-8455Wusvv Auto Ql (U)Mucus [Presence] in Urine by AutomatedCleveland Clinic FoundationNeutrophils Auto (Bld) [#/Vol]Ordered By: Luanne Groves on 65-80-9627Mphgaicegnq (Bld) [#/Vol]Neutrophils [#/volume] in Blood by Automated count1.8-7.7FEast Ohio Regional HospitalNeutrophils/100 WBC Auto (Bld)Ordered By: Luanne Groves on 16-80-7993Tgdfrltfeov/100 WBC (Bld)Automated neutrophil %.[facility] FoundationNitrite Test strip Ql (U)Ordered By: Luanne Groves on 05-24-2024 Nitrite Ql (U)Nitrite [Presence] in Urine by Test stripNegativeCleveland Clinic FoundationNo Panel InformationOrdered By: Luanne Groves on 99-54-2655Hvwysnuxz GFR (CKD-EPI)> 60.0 mL/MinCleveland Clinic Foundation Pharmacy Creatinine Clearance (Chem98.99[facility] Nucleated erythrocytes [Presence] in Blood by Automated countOrdered By: Luanne Groves on 80-80-9285Ziyuoawlh RBC Auto Ql (Bld)Nucleated erythrocytes [Presence] in Blood by Automated count0-0.5FEast [facility] Hospital Platelet mean volume Auto (Bld) [Entitic vol]Ordered By: Luanne Groves on 96-68-8940Wfvaystv mean volume (Bld) [Entitic vol]Platelet mean volume [Entitic volume] in Blood by Automated count6.3-10.7FEast [facility] Hospital Platelets Auto (Bld) [#/Vol]Ordered By: Luanne Groves on 43-95-9370Asrattxnh (Bld) [#/Vol]Platelets [#/volume] in Blood by Automated sydur344-156NvccdnzqvCleveland Clinic FoundationPotassium [Moles/volume] in Serum or PlasmaOrdered By: Luanne Groves on 16-25-6354Jhlkvfnsu [Moles/Vol]Potassium [Moles/volume] in Serum or Plasma3.5-5.1FEast Ohio Regional HospitalProtein Test strip (U) [Mass/Vol]Ordered By: Luanne Groves on 94-22-2962Qlvdgda (U) [Mass/Vol]Protein [Mass/volume] in Urine by Test stripNegativeCleveland Clinic Foundation Protein [Mass/volume] in Serum or PlasmaOrdered By: Luanne Groves on 05-24-2024 Protein [Mass/Vol]Protein [Mass/volume] in Serum or Plasma6.4-8.9[facility] FoundationRBC Auto (Bld) [#/Vol]Ordered By: Luanne Groves on 79-50-0553XMF (Bld) [#/Vol]Erythrocytes [#/volume] in Blood by Automated count 3.60-5.00[facility] FoundationRespiratory specimen influenza A virus, influenza B virus, respiratory syncytical virOrdered By: Aditi Childers on 40-95-8506DCVH-CoV-2 (COVID-19) RNA INGRID+probe Ql (Unsp spec)Respiratory specimen influenza A virus, influenza B virus, respiratory syncytical virGerman Hospitalerum or plasma albumin/globulin mass ratioOrdered By: Luanne Groves on 62-50-9238Jftwywo/Globulin [Mass ratio]Serum or plasma albumin/globulin mass ratioGerman Hospitalerum or plasma anion gap determinationOrdered By: Luanne Groves on 04-41-9623Sjcrd gap [Moles/Vol]Serum or plasma anion gap determination6.0-15.0German Hospitalodium [Moles/volume] in Serum or PlasmaOrdered By: Luanne Groves on 17-59-6217Zmbuqq [Moles/Vol]Sodium [Moles/volume] in Serum or Vregvx201-178 German Hospitalpecific gravity Test strip (U) [Rel density] Ordered By: Luanne Grovse on 37-68-5908Xpijioio gravity (U) [Rel density] Specific gravity of Urine by Test strip1.001-1.030[facility] FoundationTroponin I High Sensitivityon 35-00-0399Shdlvtqu I High Sensitivity<3 Normal0-15The [facility] Health Physician GroupComment on above:Result Comment: The Troponin units of report have been changed to meet the Chest Pain Accreditation requirement, element EC5.M1l2. Troponin units are changed from pg/ml to ng/L. Also, the decimal is removed and results are in whole numbers. PERFORMED BY: [place] [address] PATHOLOGIST [employer]ACH[employer] HELPER JOSE HERCULES M.D.Performed By: #### HS TROP #### [place] [address] USATroponin I.cardiac [Mass/volume] in Serum or Plasma by Detection limit <= 0.01 ng/Ordered By: Aditi Childers on 94-50-9476Dtlyczxe I.cardiac DL <= 0.01 ng/mL [Mass/Vol]Troponin I.cardiac [Mass/volume] in Serum or Plasma by Detection limit <= 0.01 ng/0-15[facility] Comment on above:The Troponin units of report have been changed to meet the Chest Pain Accreditation requirement, element EC5.M1l2. Troponin units are changed from pg/ml to ng/L. Also, the decimal is removed and results are in whole numbers.Urea nitrogen [Mass/volume] in Serum or PlasmaOrdered By: Luanne Groves on 54-12-2989Asak nitrogen [Mass/Vol]Urea nitrogen [Mass/volume] in Serum or Plasma11-11[facility] FoundationUrine Cultureon 05-24-2024 Bacteria identified Cx Nom (U)>100,000 colonies/ml mixed bacterial skin contaminants 2 Days PERFORMED BY: [place] [address] PATHOLOGIST [employer]ACH[employer] HELPER JOSE HERCULES M.D.NormalThe Community Health Physician GroupComment on above: Performed By: #### VINNYUAAARTI, CG, CUU #### [place] [address] USAUrobilinogen Test strip (U) [Mass/Vol]Ordered By: Luanne Groves on 32-63-2109Hylcwiemwelt (U) [Mass/Vol]Urobilinogen [Mass/volume] in Urine by Test stripNoalCleveland Clinic FoundationWBC Auto (Bld) [#/Vol] Ordered By: Luanne Groves on 05-98-6839EBL (Bld) [#/Vol]Leukocytes [#/volume] in Blood by Automated count3.8-11.6FEast Ohio Regional HospitalpH Test strip (U)Ordered By: Luanne Groves on 35-68-9085zG (U)pH of Urine by Test strip5.0-9.0 [facility] FoundationABO/RH Typeon 13-77-8432YVU and Rh group Nom (Bld)Blood group O Rh(D) positiveNormalThSt. Luke's Jerome Physician GroupComment on above:Order Comment: RN will try with IV AB 1705Result Comment: PERFORMED BY: [address] [place] [address] PATHOLOGIST [employer]ACH[employer] HELPER JOSE HERCULES M.D.Alanine aminotransferase [Enzymatic activity/volume] in Serum or PlasmaOrdered By: Narciso Walker on 80-92-4602DFR [Catalytic activity/Vol]Alanine aminotransferase [Enzymatic activity/volume] in Serum or Plasma7-52[facility] FoundationAlbumin [Mass/volume] in Serum or Plasma by Bromocresol green (BCG) dye binding methoOrdered By: Narciso Walker on 75-53-2126Yynsjkc BCG dye [Mass/Vol]Albumin [Mass/volume] in Serum or Plasma by Bromocresol green (BCG) dye binding metho3.5-5.7FEast Ohio Regional HospitalAlkaline phosphatase [Enzymatic activity/volume] in Serum or PlasmaOrdered By: Narciso Walker on 59-11-3375INM [Catalytic activity/Vol]Alkaline phosphatase [Enzymatic activity/volume] in Serum or Oywvsr70-197WdxargkkrCleveland Clinic FoundationAppearance of UrineOrdered By: Narciso Walker on 30-23-6940Zpmfyvrkhf (U)Urine appearanceCleSelect Medical Specialty Hospital - Trumbull Aspartate aminotransferase [Enzymatic activity/volume] in Serum or PlasmaOrdered By: Simin Jimenez on 42-33-8782VNR [Catalytic activity/Vol]Aspartate aminotransferase [Enzymatic activity/volume] in Serum or Utgwdw27-50HvrcoktgdCleveland Clinic FoundationBacteria [Presence] in Urine by AutomatedOrdered By: Narciso Walker on 74-08-1295Tiideuoi Auto Ql (U)Bacteria [Presence] in Urine by AutomatedNone SeenCleveland Clinic FoundationBasophils Auto (Bld) [#/Vol]Ordered By: Simin Jimenez on 90-42-9793Woaokaudx (Bld) [#/Vol]Automated basophil count0.0-0.2FEast Ohio Regional HospitalBasophils/100 WBC Auto (Bld)Ordered By: Simin Jimenez on 02-55-9456Qoftseaxr/100 WBC (Bld)Automated basophil %.[facility] Clinic FoundationBilirubin Test strip Ql (U)Ordered By: Narciso Walker on 68-27-8717Nneadwzep Ql (U)Bilirubin.total [Presence] in Urine by Test stripNegativeCleveland Clinic FoundationBilirubin.total [Mass/volume] in Serum or PlasmaOrdered By: Narciso Walker on 03-11-2024 Bilirubin [Mass/Vol]Bilirubin.total [Mass/volume] in Serum or Plasma0.3-1.0 [facility] FoundationCalcium [Mass/volume] in Serum or PlasmaOrdered By: Narciso Walker on 33-66-9136Sntukxc [Mass/Vol]Calcium [Mass/volume] in Serum or Plasma8.6-10.3FEast [facility] Regional HospitalCarbon dioxide, total [Moles/volume] in Serum or PlasmaOrdered By: Narciso Walker on 92-92-1514PV7 [Moles/Vol]Carbon dioxide, total [Moles/volume] in Serum or Xjlfng39.0-31.0 [facility] FoundationChlamydia/GC Amplificationon 03-11-2024 Chlamydia Trachomotis, NAANegativeNormalNegativeThe [facility] Comment on above:Order Comment: SOURCE OF SPECIMEN: GenitalPerformed By: #### GCCHLAMAMP ####[facility] ,#### FS, CUGEN ####[address] [place] [address] USANeisseria Gonorrhoeae, INGRID NegativeNormalNegativeThe Community Health Physician GroupComment on above:Order Comment: SOURCE OF SPECIMEN: GenitalResult Comment: Performed at: = - [facility] [id number] Freight Weigher: Katina Alfredo MD, Phone: [phone] PERFORMED BY: [facility] [address] [place] [address] PATHOLOGIST [employer] MACHINE HELPER JOSE HERCULES M.D.Performed By: #### GCCHLAMAMP ####[facility] ,#### FS, CUGEN ####[address] [place] [address] USAChloride [Moles/volume] in Serum or PlasmaOrdered By: Narciso Walker on 21-46-3595Rijhsalq [Moles/Vol]Chloride [Moles/volume] in Serum or Rbztmc55-981QtshdsgchCleveland Clinic FoundationChoriogonadotropin.beta subunit [Units/volume] in Serum or PlasmaOrdered By: Narciso Walker on 60-13-9853BOS.beta subunit QnChoriogonadotropin.beta subunit [Units/volume] in Serum or PlasmaCleveland Clinic FoundationComment on above:Approximate Approximate hCG Gestational Age Range (mIU/ml) (weeks)0.2-1 5-50 1-2 50-500 2-3 100-5,000 3-4 500-10,000 4-5 1,000-50,000 5-6 10,000-100,000 6-8 15,000-200,000 8-12 10,000-100,000Color Auto (U)Ordered By: Narciso Walker on 13-34-5264Jejgq (U)Color of Urine by AutoYellowCleveland Clinic FoundationComplete Blood Count Auto Diffon 12-81-2630Kspmrrory (Bld) [#/Vol]0.0 10*3/uLNormal0.0-0.2The Community Health Physician GroupComment on above:Result Comment: PERFORMED BY: [place] [address] PATHOLOGIST [employer] MACHINE HELPER JOSE HERCULES M.D.Performed By: #### CBC #### [facility] [address] [place] [address] USABasophils/100 WBC (Bld)0.5 %Normal.The Community Health Physician GroupComment on above:Performed By: #### CBC #### [facility] [address] [place] [address] USAEosinophils (Bld) [#/Vol]0.2 10*3/uLNormal0.0-0.45The Community Health Physician GroupComment on above:Performed By: #### CBC #### [facility] [address] [place] [address] USAEosinophils/100 WBC (Bld)3.7 %Normal.The Community Health Physician GroupComment on above:Performed By: #### CBC #### [place] [address] USAErythrocyte distribution width (RBC) [Ratio]12.8 %Normal 11.9-15.3The Community Health Physician GroupComment on above:Performed By: #### CBC #### [place] [address] USAHematocrit (Bld) [Volume fraction]37.6 %Hmemab77.0-46.4The Community Health Physician GroupComment on above:Performed By: #### CBC #### [place] [address] USAHemoglobin (Bld) [Mass/Vol]13.0 g/bITvahrn98.8-15.4The Community Health Physician GroupComment on above:Performed By: #### CBC #### [place] [address] USALymphocytes (Bld) [#/Vol]2.3 10*3/uLNormal1.00-4.8The Community Health Physician GroupComment on above:Performed By: #### CBC #### [place] [address] USALymphocytes/100 WBC (Bld)34.4 %Normal.The Community Health Physician GroupComment on above:Performed By: #### CBC #### [place] [address] USAMCH (RBC) [Entitic mass]30.1 lyLwxpml73.7-34.3The Community Health Physician GroupComment on above:Performed By: #### CBC #### [place] [address] USAMCV (RBC) [Entitic vol]87.0 pSHmtnbq50-127Brw Community Health Physician GroupComment on above:Performed By: #### CBC #### [place] [address] USAMean Corpuscular HGB Conc34.6 g/tGDmqzje43.0-35.0The Community Health Physician GroupComment on above:Performed By: #### CBC #### [facility] [address] [place] [address] USAMonocytes (Bld) [#/Vol]0.4 10*3/uLNormal0.0-0.8The Community Health Physician GroupComment on above:Performed By: #### CBC #### [facility] [address] [place] [address] USAMonocytes/100 WBC (Bld)19.29 %Normal0.00-20.00The Community Health Physician GroupComment on above:Performed By: #### CBC #### [facility] [address] [place] [address] USAMonocytes/100 WBC (Bld)6.4 %Normal.The Community Health Physician GroupComment on above:Performed By: #### CBC #### [facility] [address] [place] [address] USANeutrophils (Bld) [#/Vol]3.7 10*3/uLNormal1.8-7.7The Community Health Physician GroupComment on above:Performed By: #### CBC #### [facility] [address] [place] [address] USANeutrophils/100 WBC (Bld)55.0 %Normal.The Community Health Physician GroupComment on above:Performed By: #### CBC #### [facility] [address] [place] [address] USANRBC%0.1 /100{WBC}Normal0-0.5The [facility] Comment on above:Performed By: #### CBC #### [facility] [address] [place] [address] USAPlatelet mean volume (Bld) [Entitic vol]8.4 fLNormal 6.3-10.7The Community Health Physician GroupComment on above:Performed By: #### CBC #### [facility] [address] [place] [address] USAPlatelets (Bld) [#/Vol]227 10*3/gIWuhzjr698-152Tpk Community Health Physician GroupComment on above:Performed By: #### CBC #### [facility] [address] [place] [address] USARBC (Bld) [#/Vol]4.32 10*6/uLNormal3.60-5.00The Community Health Physician GroupComment on above:Performed By: #### CBC #### [facility] [address] [place] [address] USAWBC (Bld) [#/Vol]6.8 10*3/uLNormal3.8-11.6The Community Health Physician GroupComment on above:Performed By: #### CBC #### [facility] [address] [place] [address] USAComprehensive Metabolic Panelon 06-15-2539Keiojvk [Mass/Vol]4.4 g/dLNormal3.5-5.7The Community Health Physician GroupComment on above: Performed By: #### HCGQNT, CMP ####[place] [id number] USAAlbumin/Globulin [Mass ratio]1.4 {ratio}NormalThe Community Health Physician GroupComment on above:Performed By: #### HCGQNT, CMP ####[place] [id number] USAALP [Catalytic activity/Vol]52 U/HIyafzo83-104Nem Community Health Physician GroupComment on above:Performed By: #### HCGQNT, CMP ####[place] [id number] USAALT [Catalytic activity/Vol]11 U/LNormal7-52 The Community Health Physician GroupComment on above:Performed By: #### HCGQNT, CMP ####[place] [id number] USAAnion gap [Moles/Vol]Not performedNormal6.0-15.0The Community Health Physician GroupComment on above:Performed By: #### HCGQNT, CMP ####[place] [id number] USAAspartate Amino LxbpibiuwkyAahfni31-28Jlo Community Health Physician GroupComment on above:Result Comment: Specimen hemolyzed, redraw requestedPerformed By: #### HCGQNT, CMP ####[place] [id number] USABilirubin [Mass/Vol]0.5 mg/dLNormal 0.3-1.0The Community Health Physician GroupComment on above:Performed By: #### HCGQNT, CMP ####[place] [id number] [place] Calcium [Mass/Vol]9.7 mg/dLNormal8.6-10.3The Community Health Physician GroupComment on above:Performed By: #### HCGQNT, CMP ####[place] [id number] USAChloride [Moles/Vol]106 mmol/VOtzzhc44-500Ndy Community Health Physician GroupComment on above:Performed By: #### HCGQNT, CMP ####[place] [id number] USACO2 [Moles/Vol]25.8 mmol/ARjritu42.0-31.0The Community Health Physician GroupComment on above:Performed By: #### HCGQNT, CMP ####[place] [id number] USACreatinine [Mass/Vol]0.76 mg/dLNormal0.60-1.20 The Community Health Physician GroupComment on above:Performed By: #### HCGQNT, CMP ####[place] [id number] [place] Creatinine Clr Calc Xtpwxvgv019.26NormalThe Community Health Physician GroupComment on above:Performed By: #### HCGQNT, CMP ####[place] [id number] USAGFR/1.73 sq M.predicted MDRD (S/P/Bld) [Vol rate/Area]mL/min/{1.73_m2}NormalThe Community Health Physician GroupComment on above: Performed By: #### HCGQNT, CMP ####[address] [address] USAGlobulin (S) [Mass/Vol]3.1 g/dLNormalThe Community Health Physician GroupComment on above:Performed By: #### HCGQNT, CMP ####[address] [address] USAGlucose [Mass/Vol]82 mg/gDGnpkzv38-921Dsc Community Health Physician GroupComment on above:Result Comment: Random Glucose Reference Range is dependent on time and content of last meal. Glucose of more than 200 mg/dL in a nonstressed, ambulatory subject supports the diagnosis of Diabetes Mellitus. ADA recommended reference rangePerformed By: #### HCGQNT, CMP ####[address] [address] USAPotassiumNormal 3.5-5.1The Community Health Physician GroupComment on above:Result Comment: Specimen hemolyzed, redraw requestedPerformed By: #### HCGQNT, CMP ####[address] [address] USAProtein [Mass/Vol]7.5 g/dL Normal6.4-8.9The Community Health Physician GroupComment on above:Performed By: #### HCGQNT, CMP ####[address] [address] USASodium [Moles/Vol]133 mmol/LNox305-577Ayv [facility] Comment on above:Performed By: #### HCGQNT, CMP ####[address] [address] USAUrea nitrogen [Mass/Vol]16 mg/dLNormal 7-25The Community Health Physician GroupComment on above:Performed By: #### HCGQNT, CMP ####[address] [address] [place] Creatinine [Mass/volume] in Serum or PlasmaOrdered By: Narciso Walker on 83-01-4819Whbhfsdmdx [Mass/Vol]Creatinine [Mass/volume] in Serum or Plasma 0.60-1.20C[facility] Clinic FoundationDipstick and Microscopicon 03-11-2024 Appearance (U)ClearNormalClearThe Community Health Physician GroupComment on above: Order Comment: Name Collection Type:: Clean-Voided MidstreamPerformed By: #### ADDONUAPLUS ####[address] [place] [address] USABacteria,UrineNone SeenNormalNone SeenThe Community Health Phys[facility] Group Comment on above:Order Comment: Name Collection Type:: Clean-Voided Midstream Performed By: #### ADDONUAPLUS ####[address] [address] USABilirubin,UrineNegativeNormalNegativeHca Florida Plantation Emergency Physician GroupComment on above:Order Comment: Name Collection Type:: Clean- Voided MidstreamPerformed By: #### ADDONUAPLUS ####[address] [address] USAColor (U)YellowNormalYellowThe Community Health Physician GroupComment on above:Order Comment: Name Collection Type:: Clean-Voided MidstreamPerformed By: #### ADDONUAPLUS ####[address] [address] USAGlucose Ql (U)NormalNormal NormalThe Community Health Physician GroupComment on above:Order Comment: Name Collection Type:: Clean-Voided MidstreamPerformed By: #### ADDONUAPLUS ####[address] [address] USAHyaline Casts,UrineNoneNormal0-8The Community Health Physician GroupComment on above:Order Comment: Name Collection Type:: Clean-Voided MidstreamPerformed By: #### ADDONUAPLUS ####[address] [address] USAKetones Ql (U)NegativeNormalNegativeThe [facility] Comment on above:Order Comment: Name Collection Type:: Clean-Voided Midstream Performed By: #### ADDONUAPLUS ####[address] [address] USALeukocyte esterase Test strip Ql (U)NegativeNormal NegativeThe Community Health Physician GroupComment on above:Order Comment: Name Collection Type:: Clean-Voided MidstreamPerformed By: #### ADDONUAPLUS ####[address] [address] [place] Mucus,UrineRareNormalThe Community Health Physician GroupComment on above:Order Comment: Name Collection Type:: Clean-Voided MidstreamResult Comment: PERFORMED BY: [facility] [address] [place] [address] PATHOLOGIST [employer] MACHINE HELPER JOSE HERCULES M.D.Performed By: #### ADDONUAPLUS ####[id number] USANitrite,UrineNegativeNormal NegativeThe Community Health Physician GroupComment on above:Order Comment: Name Collection Type:: Clean-Voided MidstreamPerformed By: #### ADDONUAPLUS ####[address] [address] USAOccult Blood,UrineTraceHighNegativeThe Community Health Physician GroupComment on above:Order Comment: Name Collection Type:: Clean-Voided MidstreamResult Comment: PERFORMED BY: [facility] [address] [place] [id number] PATHOLOGIST [employer] FOR[employer] MACHINE HELPER JOSE HERCULES M.D.Performed By: #### ADDONUAPLUS ####[address] [address] USApH (U)5.0 [pH]Normal5.0-9.0 The Community Health Physician GroupComment on above:Order Comment: Name Collection Type:: Clean-Voided MidstreamPerformed By: #### ADDONUAPLUS ####[address] [address] USAProtein,UrineNegative NormalNegativeThe Community Health Physician GroupComment on above:Order Comment: Name Collection Type:: Clean-Voided MidstreamPerformed By: #### ADDONUAPLUS ####[address] [address] [place] RBC,Urine1 [HPF]Normal0-4The Community Health Physician GroupComment on above:Order Comment: Name Collection Type:: Clean-Voided MidstreamPerformed By: #### ADDONUAPLUS ####[address] [address] USASpecificy [place],Urine1.064Jzeldj1.001-1.030The Community Health Physician GroupComment on above:Order Comment: Name Collection Type:: Clean-Voided MidstreamPerformed By: #### ADDONUAPLUS ####[address] [address] USASquamous Epithelial Cell,Urine1 [HPF]Normal0-2 The Community Health Physician GroupComment on above:Order Comment: Name Collection Type:: Clean-Voided MidstreamPerformed By: #### ADDONUAPLUS ####[address] [address] USAUrobilinogen,Urine NormalNormalNormalThe Community Health Physician GroupComment on above:Order Comment: Name Collection Type:: Clean-Voided MidstreamPerformed By: #### ADDONUAPLUS ####[address] [address] [place] WBC,Urine1 [HPF]Normal0-4The Community Health Physician GroupComment on above:Order Comment: Name Collection Type:: Clean-Voided MidstreamPerformed By: #### ADDONUAPLUS ####[id number] USAEosinophils Auto (Bld) [#/Vol]Ordered By: Simin Jimenez on 03-11-2024 Eosinophils (Bld) [#/Vol]Automated eosinophil count0.0-0.45C[facility] Clinic FoundationEosinophils/100 WBC Auto (Bld)Ordered By: Simin Jimenez on 14-44-3206Unthubvqyyz/100 WBC (Bld)Automated eosinophil %.[facility] Clinic FoundationEpithelial cells.squamous [#/area] in Urine sediment by Automated countOrdered By: Narciso Walker on 12-38-4849Cliiqxnbsp cells.squamous Auto (Urine sed) [#/Area]Epithelial cells.squamous [#/area] in Urine sediment by Automated count0-2FEast Ohio Regional HospitalErythrocyte distribution width Auto (RBC) [Ratio]Ordered By: Simin Jimenez on 19-55-8434Meahmijrlxx distribution width (RBC) [Ratio]Erythrocyte distribution width [Ratio] by Automated count11.9-15.3FEast Ohio Regional HospitalErythrocytes [#/area] in Urine sediment by Automated countOrdered By: Narciso Walker on 03-11-2024 RBC Auto (Urine sed) [#/Area]Erythrocytes [#/area] in Urine sediment by Automated count0-4FEast Ohio Regional HospitalFungal Smearon 03-11-2024 Fungal SmearFungus Smear Results No Fungal Like Elements Seen Trichomonas Screen Trichomonas Present Trich Reference Reference range = None Seen PERFORMED BY: [place] [address] PATHOLOGIST [employer] MACHINE HELPER JOSE HERCULES M.D.[facility] Physician GroupComment on above: Performed By: #### GCCHLAMAMP ####[facility] ,#### FS, CUGEN ####[facility] [place] [address] USAFungal smearOrdered By: Simin Jimenez on 95-00-6620Oikgcc identified Fungus stain Nom (Unsp spec)Fungal smearCleveland Clinic FoundationGenital Cultureon 06-77-0801Jmnwujb CultureGenital Results Moderate Normal Urogenital Phoebe 2 Days No More GC Specimen not tested for Neisseria gonorrheae PERFORMED BY: [place] [address] PATHOLOGIST [employer] FOR[employer] MACHINE HELPER JOSE HERCULES M.D.[facility] Clinic Physician GroupComment on above: Performed By: #### GCCHLAMAMP ####[facility] ,#### FS, CUGEN ####[facility] [place] [address] USAGenital specimen bacteria identification by aerobic cultureOrdered By: Simin Jimenez on 54-31-1549Xdwezogo identified Aer cx Nom (Genital specimen)Genital specimen bacteria identification by aerobic cultureCleveland Clinic Foundation Globulin Calc (S) [Mass/Vol]Ordered By: Narciso Walker on 94-66-3261Bzyrlfmy (S) [Mass/Vol]Serum globulin measurement by calculation (mass/volume)[facility] Clinic FoundationGlucose [Mass/volume] in Serum or PlasmaOrdered By: Narciso Walker on 94-87-1936Vhzmuec [Mass/Vol]Glucose [Mass/volume] in Serum or Vwnjrc84-625GsljaxiauCleveland Clinic FoundationComment on above:ADA recommended reference rangeRandom Glucose Reference Range is dependent on time and content of last meal. Glucose of more than 200 mg/dL in a nonstressed, ambulatory subject supports the diagnosisof Diabetes Mellitus.Glucose [Mass/volume] in Urine by Test stripOrdered By: Narciso Walker on 97-95-1712Sndklfr Test strip (U) [Mass/Vol]Glucose [Mass/volume] in Urine by Test stripNormalCleveland Clinic FoundationHCG,Quantitativeon 65-48-3522QMW,Qmozlucqspwa55858.00 m[iU]/mLNormalThe Community Health Physician GroupComment on above:Result Comment: Approximate Approximate hCG Gestational Age Range (mIU/ml) (weeks) 0.2-1 5-50 1-2 50-500 2-3 100-5,000 3-4 500-10,000 4-5 1,000-50,000 5-6 10,000-100,000 6-8 15,000-200,000 8-12 10,000-100,000 PERFORMED BY: [facility] [address] [place] [address] PATHOLOGIST [employer] MACHINE HELPER JOSE HERCULES M.D.Performed By: #### HCGQNT, CMP ####[address] [place] [address] USAHematocrit Auto (Bld) [Volume fraction]Ordered By: Simin Jimenez on 95-51-1844Kbcnuteucd (Bld) [Volume fraction]Hematocrit [Volume Fraction] of Blood by Automated count34.0-46.4 [facility] FoundationHemoglobin Test strip Ql (U)Ordered By: Narciso Walker on 67-91-7147Ulfevfywqc Ql (U)Hemoglobin [Presence] in Urine by Test stripHighNegSelect Medical Cleveland Clinic Rehabilitation Hospital, BeachwoodHemoglobin [Mass/volume] in BloodOrdered By: Simin Jimenez on 64-01-2718Cilzlrrrgq (Bld) [Mass/Vol] Hemoglobin [Mass/volume] in Blood11.8-15.4FEast [facility] Hospital Hyaline casts [#/area] in Urine sediment by Automated countOrdered By: Narciso Walker on 92-17-3865Odkgvtd casts Auto (Urine sed) [#/Area]Hyaline casts [#/area] in Urine sediment by Automated count0-8C[facility] FoundationKetones Test strip Ql (U)Ordered By: Narciso Walker on 20-02-2959Frgqxhl Ql (U)Ketones [Presence] in Urine by Test stripNegSelect Medical [facility] Clinic Rehabilitation Hospital, BeachwoodLaboratory - Microbiology and Antimicrobial susceptibilityOrdered By: Simin Jimenez on 03-11-2024. trachomatis DNA INGRID+probe Ql (Unsp spec) NegativeNegSelect Medical Cleveland Clinic Rehabilitation Hospital, BeachwoodN. gonorrhoeae DNA INGRID+probe Ql (Unsp spec)NegativeNegSelect Medical Cleveland Clinic Rehabilitation Hospital, BeachwoodComment on above: Performed at: =[address] [id number] Director: Katina Alfredo MD, Phone: [phone] esterase [Presence] in Urine by Test stripOrdered By: Narciso Walker on 03-11-2024 Leukocyte esterase Test strip Ql (U)Leukocyte esterase [Presence] in Urine by Test stripNegSelect Medical [facility] Clinic Rehabilitation Hospital, BeachwoodLeukocytes [#/area] in Urine sediment by Automated countOrdered By: Narciso Walker on 96-85-2462BKZ Auto (Urine sed) [#/Area]Leukocytes [#/area] in Urine sediment by Automated count0-4 [facility] FoundationLeukocytes [#/volume] corrected for nucleated erythrocytes in Blood by Automated counOrdered By: Simin Jimenez on 03-11-2024 WBC corrected for nucl RBC Auto (Bld) [#/Vol]Leukocytes [#/volume] corrected for nucleated erythrocytes in Blood by Automated coun3.8-11.6FEast Ohio Regional HospitalLymphocytes Auto (Bld) [#/Vol]Ordered By: Simin Jimenez on 66-92-9381Fmfryrixekm (Bld) [#/Vol]Lymphocytes [#/volume] in Blood by Automated count1.00-4.8C[facility] Clinic FoundationLymphocytes/100 WBC Auto (Bld) Ordered By: Simin Jiemnez on 69-18-0378Vmsaxrgitka/100 WBC (Bld) Lymphocytes/100 leukocytes in Blood by Automated count.[facility]-FairhillH Auto (RBC) [Entitic mass]Ordered By: Simin Jimenez on 65-05-2924HTD (RBC) [Entitic mass]MCH [Entitic mass] by Automated count24.7-34.3 [facility] FoundationMCHC Auto (RBC) [Mass/Vol]Ordered By: Simin Jimenez on 90-63-1124KEWC (RBC) [Mass/Vol]MCHC [Mass/volume] by Automated count 32.0-35.0C[facility] FoundationMCV Auto (RBC) [Entitic vol]Ordered By: Simin Jimenez on 65-43-9933YJC (RBC) [Entitic vol]MCV [Entitic volume] by Automated ncror66-972XyjshpkanCleveland Clinic FoundationMonocyte distribution width [Entitic volume] in Blood by AutomatedOrdered By: Simin Jimenez on 68-30-6888Nkxfbila distribution width Auto (Bld) [Entitic vol]Monocyte distribution width [Entitic volume] in Blood by Automated0.00-20.00C[facility] FoundationMonocytes Auto (Bld) [#/Vol]Ordered By: Simin Jimenez on 44-73-1817Twyhlgwpb (Bld) [#/Vol]Automated blood monocyte count0.0-0.8 [facility] FoundationMonocytes/100 WBC Auto (Bld)Ordered By: Simin Jimenez on 88-51-9577Ghipqkkpm/100 WBC (Bld)Automated monocyte %. [facility] FoundationMucus [Presence] in Urine by AutomatedOrdered By: Narciso Walker on 62-04-3340Fhdrd Auto Ql (U)Mucus [Presence] in Urine by AutomatedCleveland Clinic FoundationNeutrophils Auto (Bld) [#/Vol]Ordered By: Simin Jimenez on 50-03-6870Eyrthmrcwvi (Bld) [#/Vol]Neutrophils [#/volume] in Blood by Automated count1.8-7.7FEast [facility] Hospital Neutrophils/100 WBC Auto (Bld)Ordered By: Siimn Jimenez on 03-11-2024 Neutrophils/100 WBC (Bld)Automated neutrophil %.[facility] Clinic FoundationNitrite Test strip Ql (U)Ordered By: Narciso Walker on 68-19-5643Yjwxyzy Ql (U)Nitrite [Presence] in Urine by Test stripNegativeCleveland Clinic FoundationNo Panel InformationOrdered By: Narciso Walker on 03-11-2024 Estimated GFR (CKD-EPI)> 60.0 mL/MinCleveland Clinic FoundationPharmacy Creatinine Clearance (Bsfe294.26[facility] FoundationNucleated erythrocytes [Presence] in Blood by Automated countOrdered By: Simin Jimenez on 86-22-6544Vamjncyui RBC Auto Ql (Bld)Nucleated erythrocytes [Presence] in Blood by Automated count0-0.5FEast Ohio Regional HospitalPlatelet mean volume Auto (Bld) [Entitic vol]Ordered By: Simin Jimenez on 38-07-1195Uggtedzl mean volume (Bld) [Entitic vol]Platelet mean volume [Entitic volume] in Blood by Automated count6.3-10.7FEast Ohio Regional HospitalPlatelets Auto (Bld) [#/Vol]Ordered By: Simin Jimenez on 48-32-2265Xvqiaffln (Bld) [#/Vol]Platelets [#/volume] in Blood by Automated -088VroffemxfCleveland Clinic Foundation Potassium [Moles/volume] in Serum or PlasmaOrdered By: Simin Jimenez on 95-07-6869Rbymhvoep [Moles/Vol]Potassium [Moles/volume] in Serum or Plasma 3.5-5.1FEast Ohio Regional HospitalProtein Test strip (U) [Mass/Vol]Ordered By: Narciso Walker on 76-51-2018Zynaros (U) [Mass/Vol]Protein [Mass/volume] in Urine by Test stripNegativeCleveland Clinic FoundationProtein [Mass/volume] in Serum or PlasmaOrdered By: Narciso Walker on 03-11-2024 Protein [Mass/Vol]Protein [Mass/volume] in Serum or Plasma6.4-8.9[facility] FoundationRBC Auto (Bld) [#/Vol]Ordered By: Simin Jimenez on 11-14-3419ILT (Bld) [#/Vol]Erythrocytes [#/volume] in Blood by Automated count 3.60-5.00[facility] FoundationRedraw Richard 46-14-8856WCW [Catalytic activity/Vol]20 U/IOlrpbl26-13Hqc Community Health Physician GroupComment on above: Result Comment: PERFORMED BY: [facility] [address] [place] [address] PATHOLOGIST [employer] MACHINE HELPER JOSE HERCULES M.D.Performed By: #### DARNELL MONAHAN AST ####[address] [place] [address] USARedraw Potassiumon 83-45-6387Izjdfnzab [Moles/Vol]3.9 mmol/LNormal3.5-5.1The Community Health Physician GroupComment on above:Performed By: #### DARNELL MONAHAN AST ####[address] [address] USASerum or plasma albumin/globulin mass ratioOrdered By: Narciso Walker on 03-11-2024 Albumin/Globulin [Mass ratio]Serum or plasma albumin/globulin mass ratio German Hospitalerum or plasma anion gap determinationOrdered By: Narciso Walker on 28-67-7794Jdecm gap [Moles/Vol]Serum or plasma anion gap determinationCleveland Clinic FoundationComment on above:Test not performedSodium [Moles/volume] in Serum or PlasmaOrdered By: Narciso Walker on 69-57-6724Zgihyr [Moles/Vol]Sodium [Moles/volume] in Serum or KjnzzbZwx054-016 German Hospitalpecific gravity Test strip (U) [Rel density] Ordered By: Narciso Walker on 71-75-7786Hyowsplh gravity (U) [Rel density] Specific gravity of Urine by Test strip1.001-1.030Cleveland Clinic FoundationTrichomonas vaginalis detection by wet preparationOrdered By: Simin Jimenez on 03-11-2024T. vaginalis Wet prep Ql (Unsp spec)Trichomonas vaginalis detection by wet preparationCleveland Clinic FoundationUS OB <= 14 weeks fetuson 63-08-1984XF OB <= 14 weeks [facility] [address] Ultrasound Report Signed Patient: Dianne Valente MR#: [id number] 99 : 1990 Acct:[id number] Age/Sex: 33 / F ADM Date: 03/11/24 Loc: ER Room: Type: [facility] ER Attending Dr: Ordering Provider: Simin Jimenez APRN Date of Service: 03/11/24 US/US OB <= 14 weeks fetus: OB/Uterine Contractions ([id number]) US/US OB transvaginal: VAGINAL BLEEDING Copies to: Simin Jimenez APRN OB ultrasound. Reason for exam:8 weeks IUP. Vaginal bleeding for 7 days. Comparison:None Technique: Transabdominal as well as transvaginal imaging of the gravid uterus was obtained. Findings: A presumed gestational sac is seen within the endometrial canal with a MSD of 5 weeks 5 days. No pole or yolk sac is identified. MSD measures 10 mm. No free fluid is noted. Ovaries appear unremarkable. Normal arterial and venous Doppler waveforms of the ovaries. US/US OB transvaginal Impression: Presumed gestational sac is seen within the endometrial canal with a MSD of 5 weeks 5 days. No pole or yolk sac is identified. Differential considerations includes early IUP, miscarriage or possibly ectopic , however no additional evidence of ectopic is seen such as adnexal mass or complex free fluid. Correlation with beta-hCG trend is recommended. Repeat ultrasound may be needed for assessment of viability. Impression dictated by: Gabino Bunch Jr., D.O.03/11/2024 7:24 PM Dictation Location: [place] [address] Tech: Eloisa Buckley Transcribed By: JOSAFAT 03/11/241923 Dictated By: Gabino Bunch Jr, DO 03/11/241920 Signed By: 03/11/241923[facility] Physician GroupUrea nitrogen [Mass/volume] in Serum or PlasmaOrdered By: Narciso Walker on 38-37-0342Hpuv nitrogen [Mass/Vol]Urea nitrogen [Mass/volume] in Serum or Plasma11-11Cleveland Clinic FoundationUrobilinogen Test strip (U) [Mass/Vol]Ordered By: Narciso Walker on 34-97-3040Btksgoqzpfoz (U) [Mass/Vol]Urobilinogen [Mass/volume] in Urine by Test stripNoClermont County HospitalWBC Auto (Bld) [#/Vol]Ordered By: Simin Jimenez on 49-97-1519VZV (Bld) [#/Vol]Leukocytes [#/volume] in Blood by Automated count3.8-11.6FEast Ohio Regional HospitalpH Test strip (U) Ordered By: Narciso Walker on 22-68-9831dE (U)pH of Urine by Test strip5.0-9.0 Cleveland Clinic FoundationC Urineon 03-06-8404Cswbqqta identified Cx Nom (U)Microbiology PROCEDURE: Urine Culture [R1] SOURCE: U CleanCatch BODY SITE: COLLECTED DATE/TIME: 02/28/2024 18:30 EST RECEIVED DATE/TIME: 02/28/2024 19:48 EST START DATE/TIME: 02/28/2024 19:48 EST FREE TEXT SOURCE: Kae BOWMAN, Tatiana Pal PA-C, Tatiana Crystal FINAL REPORTS Final Report [] Verified Date/Time: 03/01/2024 10:43 EST 2,000 cfu/ml Mixed skin contaminants Performing Locations R1: This test was performed at: [facility], [address] [place] [address], [id number]- , , OenxtaUyqhdqSelect Medical Specialty Hospital - Cincinnati NorthComment on above:Performed By: #### [id number] #### [facility] [address] [place] [id number] 1st Trimesteron [id number] 1st TrimesterExam Date/Time: 02/28/2024 21:55 EST Reason for Exam: Vaginal bleeding Report IMPRESSION: PROBABLY EARLY INTRAUTERINE CORRESPONDING TO Composite Ultrasound Age: 5 weeks, 0 days, +/- 1 week. A BLIGHTED OVUM OR OCCULT ECTOPIC WITH PSEUDOGESTATION ARE ALSO CONSIDERATIONS. SERIAL SERUM BETA HCG VALUES COULD BE CONSIDERED. FOLLOW-UP ULTRASOUND, CLINICALLY WARRANTED. NO OTHER FINDINGS OF CONCERN IDENTIFIED. EXAM: US 1st Trimester, US Transvaginal DATE: 02/28/2024 9:32 PM CLINICAL HISTORY: Vaginal bleeding. LMP: 01/16/2024. Gestational Age by LMP: 6 weeks, 1 days COMPARISON: None available for this . TECHNIQUE: Transabdominal ultrasound was performed to visualize the entirety of the pelvis. Transvaginal scanning was performed to provide better detail of the uterus and ovaries. FINDINGS: An approximately Mean Sac Diameter: 0.5 cm thick walled cyst probably an early gestational sac is present within the central aspect of the uterine body/fundus, without significant surrounding subchorionic hemorrhage. This corresponds to Composite Ultrasound Age: 5 weeks, 0 days, +/- 1 week. There is no discrete pole or yolk sac identified at this time. The uterus is otherwise unremarkable appearance, anteverted and minimally anteflexed in position. The estimated date of delivery by measurements is: MANINDER from average ultrasound age: 0710/30/2024. The MANINDER from LMP: 10/22/2024. There is no significant free fluid, or other findings of concern identified. Report Both ovaries appear within normal limits. Equivalent blood flow is demonstrated on Doppler analysis. The uterus measurements and an estimated volume are: Uterus Length: 9.6 cm Uterus width: 6.5 cm Uterus height: 5.0 cm Uterine volume: 163 cm3 The right ovary measurements and estimated volume are: Right Ovary Length: 2.7 cm Right Ovary Width: 2.6 cm Right Ovary Height: 2.2 cm Right Ovary Volume: 7.8 cm3 The left ovary measurements and estimated volume are: Left Ovary Length: 2.0 cm Left Ovary Width: 1.7 cm Left Ovary Height: 1.7 cm Left Ovary Volume: 3.0 cm3 Ordering Provider: Tatiana Pal FINAL REPORT Dictated: 02/29/2024 9:30 am Gallo Mark MD Signed (Electronic Signature): 02/29/2024 9:30 am Signed by: Gallo Mark MD Transcribed by: ANTWAN Technologist: JOSHUA Technical Comments LMP : 01/16/2024 Regular History 3 Para 2 Transabdominal Ultrasound Performed Transvaginal Ultrasound PerformedSelect Medical Specialty Hospital - Cincinnati NorthUS Transvaginalon [id number] TransvaginalExam Date/Time: 02/28/2024 21:53 EST Reason for Exam: vaginal bleeding Report PLEASE SEE US 1st Trimester REPORT DATED: 02/28/2024. Ordering Provider: Tatiana Pal FINAL REPORT Dictated: 02/29/2024 9:30 am Gallo Mark MD Signed (Electronic Signature): 02/29/2024 9:30 am Signed by: Gallo Mark MD Transcribed by: ANTWAN Technologist: FreddyCincinnati Children's Hospital Medical CenterABO/Berny 44-17-4448PFJ/RhPositiveInvalid Interpretation [facility] Comment on above:Performed By: #### [id number] #### [facility] [address] [place], [place] [address]NBYBC BANKOrdered By: Alena Roth on 00-21-0299QTN/Rh Interp PositiveInvalid Interpretation [facility] BB SubsectionBMPon 24-96-4742Ncwrg gap [Moles/Vol]8 mmol/LNormal6-16[facility] County Medical CenterComment on above: Performed By: #### [id number] #### [facility] [address] [place], [place] [address]Qicbdge [Mass/Vol]9.0 mg/dLNormal8.9-11.1Fisher The Shepp[facility] & Enoch Pratt HospitalComment on above:Performed By: #### [id number] #### [facility] [address] [place], [place] [address]Ktqzilss [Moles/Vol]105 mmol/SAalezg006-148JraqguAshtabula County Medical CenterComment on above:Performed By: #### [id number] #### [facility] [address] [place], [place] [address]GV7 [Moles/Vol]28 mmol/USxcqwr47-23PwxxbvAshtabula County Medical Center Comment on above:Performed By: #### [id number] #### [facility] [address] [place], [place] [address]Ngaqdbzeyp [Mass/Vol]0.7 mg/dLNormal0.5-1.3FSelect Medical Specialty Hospital - Cincinnati NorthComment on above:Performed By: #### [id number] #### [facility] [address] [place], [place] [address]Irzvzyu [Mass/Vol]71 mg/fEXvmxnz94-918WanqfkAshtabula County Medical CenterComment on above:Performed By: #### [id number] #### [facility] [address] [place], [place] [address]Rntxdsebs [Moles/Vol]3.7 mmol/LNormal3.5-5.3FSelect Medical Specialty Hospital - Cincinnati NorthComment on above:Performed By: #### [id number] #### [facility] [address] [place], [place] [address]Hmzyia [Moles/Vol]137 mmol/SGvaese650-487EqkskoAshtabula County Medical CenterComment on above:Performed By: #### [id number] #### [facility] [address] [place], [place] [address]Djxo nitrogen [Mass/Vol]14 mg/dLNormal5-21[facility] Medical CenterComment on above:Performed By: #### [id number] #### [facility] [address] [place] [address], [place] [address]Uchp nitrogen/Creatinine [Mass ratio]20 No YonsxGpards44-48 [facility] Medical CenterComment on above:Performed By: #### [id number] #### [facility] [address] [place] [address]AaZR Quanton 44-20-5599MRL.beta subunit Xk0146 m[IU]/mLHigh1-3 [facility] County Medical CenterComment on above:Result Comment: 'F NON < 1 - 3' ' 0.2 - 1 WEEK = 5 TO 50' ' 1 - 2 WEEKS = 50 - 500' ' 2 - 3 WEEKS = 100 - 5000' ' 3 - 4 WEEKS = 500 - 46148' ' 4 - 5 WEEKS = 1000 - 21907' ' 5 - 6 WEEKS = 88295 - 815280' ' 6 - 8 WEEKS = 80710 - 703514' ' 8 - 12 WEEKS = 95030 - 570407'Performed By: #### [id number] #### [facility] [address] [place] [address]RPV w/ Auto Diffon 39-22-7700Klqownops/100 WBC (Bld)0.6 %Normal 0.0-2.0[facility] County Medical CenterComment on above:Performed By: #### [id number] #### [facility] [address] [place] [address]Nnsmkysli/Leukocytes Auto (Bld) [Pure # fraction]0.0 E9/LNormal 0.0-0.2FSelect Medical Specialty Hospital - Cincinnati NorthComment on above:Performed By: #### [id number] #### [facility] [address] [place] [address]Yzvzknkfuuc (Bld) [#/Vol]0.2 E9/LNormal0.0-0.5FSelect Medical Specialty Hospital - Cincinnati NorthComment on above:Performed By: #### [id number] #### [facility] [address] [place] [address]Zzlwtktgwcx/100 WBC (Bld)3.6 %Normal0.0-8.0[facility] County Medical CenterComment on above:Performed By: #### [id number] #### [facility] [address] [place] [address]22[address]Rxdhkkoippt distribution width (RBC) [Ratio]13.2 %Normal 10.9-14.2FSelect Medical Specialty Hospital - Cincinnati NorthComment on above:Performed By: #### [id number] #### [facility] [address] [place] [address], [place] [address]Brycxfnfrg (Bld) [Volume fraction]34.5 %Eqtfta20.0-46.0[facility] Medical CenterComment on above:Performed By: #### [id number] #### [facility] [address] [place], [place] [address]Wcryprlztk (Bld) [Mass/Vol]12.4 g/sOJizppq13.0-16.0[facility] Medical CenterComment on above:Performed By: #### [id number] #### [facility] [address] [place] [address]Ruukrtdkvuk (Bld) [#/Vol]2.3 E9/LNormal1.0-4.0[facility] Medical CenterComment on above:Performed By: #### [id number] #### [facility] [address] [place] [address]Bxecwpwgofx/100 WBC (Bld)34.0 %Abxdgd36.0-50.0[facility] Medical CenterComment on above:Performed By: #### [id number] #### [facility] [address] [place] [address]DWE (RBC) [Entitic mass]30.9 aqSicbbh03.0-34.0[facility] Medical CenterComment on above:Performed By: #### [id number] #### [facility] [address] [place], [place] [address]UTOG (RBC) [Mass/Vol]36.1 g/tUCxoy35.4-36.0[facility] Medical CenterComment on above:Performed By: #### [id number] #### [facility] [address] [place], [place] [address]SCR (RBC) [Entitic vol]85.6 bDDkgdbv82.0-100.0[facility] Medical CenterComment on above:Performed By: #### [id number] #### [facility] [address] [place] [address]Qlamfeapn (Bld) [#/Vol]0.4 E9/LNormal0.2-1.0[facility] Medical CenterComment on above:Performed By: #### [id number] #### [facility] [address] [place] [address]Vwyxeaobbjc (Bld) [#/Vol]3.7 E9/LNormal2.0-7.5FSelect Medical Specialty Hospital - Cincinnati NorthComment on above:Performed By: #### [id number] #### [facility] [address] [place] [address]Zignhzbyuno/100 WBC (Bld)55.1 %Eztyfp59.0-75.0[facility] Medical CenterComment on above:Performed By: #### [id number] #### [facility] [address] [place] [address]Mzewdepq828.0 E9/YXmdtrl158.0-500.0[facility] Comment on above:Performed By: #### [id number] #### [facility] [address] [place] [address]Vqtvzcgx mean volume (Bld) [Entitic vol]7.9 fLNormal6.4-10.8 [facility] Medical CenterComment on above:Performed By: #### [id number] #### [facility] [address] [place] [address]FOO (Bld) [#/Vol]4.0 E12/LLow4.3-5.9[facility] Comment on above:Performed By: #### [id number] #### [facility] [address] [place] [address]LNU corrected for nucl RBC Auto (Bld) [#/Vol]6.8 E9/LNormal 4.0-11.0[facility] Medical CenterComment on above:Performed By: #### [id number] #### [facility] [address] [place], [place] [address]LTPXSOOYCAhadhzm By: SYSTEM SYSTEM on 60-21-8560Ygswa gap [Moles/Vol]8 mmol/LNormal6 - 16 mEq/LRemisol ChemCalcium [Mass/Vol]9.0 mg/dL Normal8.9 - 11.1 mg/dLRemisol ChemChloride [Moles/Vol]105 mmol/QGsbvpe494 - 111 mmol/LRemisol ChemCO2 [Moles/Vol]28 mmol/WXafolv69 - 31 mmol/LRemisol Chem Creatinine [Mass/Vol]0.7 mg/dLNormal0.5 - 1.3 mg/dLRemisol VmrwzPCK287 mL/min/1.73 s8Rsbemv>=59mL/min/1.73 t4Icbpwfc ChemGlucose [Mass/Vol]71 mg/dL Cklrag97 - 199 mg/dLRemisol ChemHCG.beta subunit Dr4028 m[IU]/mLHigh1 - 3 mIU/mL Remisol ChemComment on above:Result Comment: 'F NON < 1 - 3' ' 0.2 - 1 WEEK = 5 TO 50' ' 1 - 2 WEEKS = 50 - 500' ' 2 - 3 WEEKS = 100 - 5000' ' 3 - 4 WEEKS = 500 - 20402' ' 4 - 5 WEEKS = 1000 - 56575' ' 5 - 6 WEEKS = 44017 - 510284' ' 6 - 8 WEEKS = 75904 - 006939' ' 8 - 12 WEEKS = 38816 - 031828'Potassium [Moles/Vol]3.7 mmol/LNormal3.5 - 5.3 mmol/LRemisol ChemSodium [Moles/Vol]137 mmol/AAtakdg759 - 145 mmol/L Remisol ChemUrea nitrogen [Mass/Vol]14 mg/dLNormal5 - 21 mg/dLRemisol ChemUrea nitrogen/Creatinine [Mass ratio]20 mg/akIdrypm26 - 20Remisol ChemCOAGULATION Ordered By: Joelle Lucia on 54-30-6255kYLS Coag (PPP) [Time]36.4 nUjldbe74.1 - 36.5 second(s)[facility] Auto CoagComment on above:Interpretive Data: Parameter 15 days - 4 weeks 1 - 5 months 6 - 11 months 1 - 5 years 6 - 10 years 11 - 17 years PTT Mean: 35.4 (27.6-45.6) Mean: 33.5 (24.8-40.7) Mean: 32.4 (25.1-40.7) Mean: 31.6 (24.0-39.2) Mean: 31.6 (26.9-38.7) Mean: 31.0 (24.6-38.4) Pediatric Reference ranges were obtained from a study by alexis Mcleod al. prepared from 1437 samples obtained at 7 different centers using the same coagulation reagent and instrumentation as [facility]. Currently there are no coagulation studies available worldwide for children to 14 days, andno normal ranges. Heparin therapeutic range (represented by Anti-Factor Xa activity of 0.2 - 0.4 U/mL) corresponds to PTT of 56.6 - 109.0 sec.INR Coag (PPP) [Relative time]1.02 {INR}Invalid Interpretation CodeBEAVER COUNTY MEMORIAL HOSP[facility] Auto CoagComment on above:Interpretive Data: INR results are specifically intended to assess patients stabilized on long-term Anticoagulation therapy suggested INR s Less Intensive Anticoagulation 2.0 3.0 Conventional Range 3.0 4.5PT Coag (PPP) [Time]11.4 sNormal9.4 - 12.5 second(s) [facility] Auto CoagComment on above:Interpretive Data: 15 days - 4 weeks 1 - 5 months 6 -11 months 1 5 years 6 10 years 11 -17 years Mean: 11.2 (9.5 12.6) Mean: 11.0 (9.7 12.8) Mean: 11.0 (9.8 13.0) Mean: 11.3 (9.9 13.4) Mean: 11.7 (10.0 14.6) Mean: 11.8 (10.0 - 14.1) Pediatric Reference ranges were obtained from a study by ramez Mcleod prepared from 1437 samples obtained at 7 different centers using the same coagulation reagent and instrumentation as [facility]. Currently there are no coagulation studies available worldwide for children to 14 days, andno normal ranges.ED Clinical Summaryon [id number] Clinical SummaryED Clinical Summary [address] [address] ED Clinical Summary Person Information Name: DIANNE VALENTE/Stephon Age: 33 Years : 1990 Sex: Female Language: Belgian PCP: NONE, XXXX Marital Status: Single Phone: [phone] Visit Id: Visit Reason: Vaginal bleeding; Pelvic pain - <20 wks ; CRAMPS Speciality: Acuity: 3 Enc Type: Emergency Med Service: Emergency Arrival: 02/28/2024 18:14:12 Discharge: 02/28/2024 22:16:57 LOS: 000 04:02 Checkin: 02/28/2024 18:14:12 Checkout: 02/28/2024 22:16:57 Dispo Type: Home (Routine DC) EVENTS: Event Name Event Status Request Date/Time Start Date/Time Complete Date/Time Arrive Complete 02/28/2024 18:14:12 02/28/2024 18:14:12 02/28/2024 18:14:12 Document Home Meds Request 02/28/2024 18:14:12 Triage Complete 02/28/2024 18:14:12 02/28/2024 18:19:11 02/28/2024 18:19:11 Bed Assign Complete 02/28/2024 18:14:12 02/28/2024 18:14:12 02/28/2024 18:14:12 Dr Exam Complete 02/28/2024 18:14:12 02/28/2024 18:22:20 02/28/2024 18:22:20 RN Exam Complete 02/28/2024 18:14:12 02/28/2024 18:24:37 02/28/2024 18:24:37 Registration Complete 02/28/2024 18:18:22 02/28/2024 18:18:22 02/28/2024 18:18:22 Reg Complete Request 02/28/2024 18:18:22 Reg Bed Request Complete 02/28/2024 18:18:23 02/28/2024 18:18:23 02/28/2024 18:18:23 Registration Request 02/28/2024 18:22:20 Pending Labs Complete 02/28/2024 18:27:29 02/28/2024 20:06:48 Blood Collect Request 02/28/2024 18:27:29 Lab Complete 02/28/2024 18:27:29 02/28/2024 20:01:19 Meds Admin Complete 02/28/2024 18:29:21 02/28/2024 18:35:12 Pending Labs Inlab 02/28/2024 18:47:11 02/28/2024 18:47:11 Lab Inlab 02/28/2024 18:47:11 02/28/2024 18:47:11 Dr Exam Complete 02/28/2024 18:59:51 02/28/2024 18:59:51 02/28/2024 18:59:51 Pending Labs Complete 02/28/2024 19:37:47 02/28/2024 19:37:47 02/28/2024 20:01:19 Lab Complete 02/28/2024 19:37:47 02/28/2024 19:37:47 02/28/2024 20:01:19 Pending Labs Complete 02/28/2024 19:38:16 02/28/2024 19:38:16 02/28/2024 20:27:43 Lab Complete 02/28/2024 19:38:16 02/28/2024 19:38:16 02/28/2024 20:27:43 US Complete 02/28/2024 20:29:02 02/28/2024 21:32:22 02/28/2024 21:55:27 US Complete 02/28/2024 21:46:13 02/28/2024 21:46:28 02/28/2024 21:53:56 Meds Admin Complete 02/28/2024 22:04:50 02/28/2024 22:15:49 Discharge Complete 02/28/2024 22:07:11 02/28/2024 22:17:19 02/28/2024 22:17:19 Transfer Complete 02/28/2024 22:17:19 02/28/2024 22:17:19 02/28/2024 22:17:19 [address] [place] [place] [id number] PHYS DOC NOTES: MEDICAL INFORMATION: Prescriptions Given: New Medications [facility], [address] [place] [id number], [phone] cephalexin (Keflex 500 mg Cap) 1 Capsules By Mouth 4 times a day for 7 Days. Refills: 0. PATIENT EDUCATION INFORMATION: Instructions: First Trimester of , Dkgl-xn-Xsnm Follow up: With: Address: When: [address], [address], [place] [address] Business (1) In 3 days 03/02/2024 Comments: Follow-up with your SCENE SHIFTER tomorrow as scheduled. Use the Keflex as prescribed for a UTI. Return toED with any new or worsening symptoms. DIAGNOSIS: Abdominal pain during ; Acute lower UTI (urinary tract infection); Nonmenstrual vaginal bleeding; Unspecified abdominal painNormalFisher Conrad Medical CenterED Note-Physicianon [id number] Note-PhysicianED Note-Physician Basic Information Time Seen: Kae BOWMAN, Tatiana Crystal 02/28/2024 18:22 Chief Complaint c/o vaginal bleeding and mostly left sided pelvic cramping that started today. pt states cramping comes and goes lasting 5-10 minutes. positive home preg test on thursday. LMP 01/16/24. 3rd . denies any n/v/d or urinary issues History of Present Illness Patient is a 61-bfoq-hpr-year-old female who presents to the ED via EMS with vaginal spotting and left-sided pelvic cramping that began 1 hour prior to arrival. Patient states she took a home test 1 week ago that was positive. Patient notes her last menstrual period was on 01/16/2024. Patient notes this is her third and has had 2 other vaginal deliveries without complications. She also notes nausea without vomiting. Patient denies changes in urination, fevers, vomiting or anyother complaints. Review of Systems A 10 point review of systems is negative except as noted above. Medical and Surgical History: Reviewed and noted Social history: Lives at home Family History: Reviewed. Physical Exam Vitals & Measurements T: 37.1 ???C(Oral) HR: 84(Peripheral) RR: 16 BP: 106/60 SpO2: 97% HT: 160 cm WT: 78.1 kg BMI: 30.51 General: The patient appears well and in no apparent distress. Patient is resting comfortably on cart. Skin: Warm, dry, no pallor noted. Head: Normocephalic, atraumatic Neck: No JVD Eye: PERRLA, EOMI ENT: Moist mucus membranes Cardiovascular: Regular rate normal peripheral perfusion Respiratory: No respiratory distress no accessory muscle use no obvious audible wheezing Chest Wall: no deformity Musculoskeletal: normal ROM, no deformity, no swelling GI: Soft no obvious distention. No rebound or rigidity. No guarding. No tenderness. Neurological: A&O moves all extremities equal strength and symmetry Psychiatric: Cooperative and appropriate Medical Decision Making Patient is a 66-gwec-krw-year-old female who presents to the ED via EMS with vaginal spotting and left-sided pelvic cramping that began 1 hour prior to arrival. Patient is hemodynamically stable and afebrile. Abdominal exam is unremarkable without tenderness to palpation. Lab work is reviewed and grossly unremarkable aside from an RBC of 4. Beta-hCG quant is 4534. Urinalysis is positive for 1+ blood and 250 leukocyte esterase. ABO/Rh is O+, therefore RhoGAM shot is not warranted. A transvaginalultrasound was obtained which shows a gestational sac measuring at 5 weeks. Patient was updated on results. She is being prescribed Keflex for a urinary tract infection was given her first dose priorto discharge. Patient has an appointment scheduled with her SCENE SHIFTER tomorrow. She was advised to return to ED with any new or worsening symptoms. Patient is agreeable with the plan and all questions were answered. Assessment/Plan Abdominal pain during (O26.899: Other specified related conditions, unspecifiedtrimester) Acute lower UTI (urinary tract infection) (N39.0: Urinary tract infection, site not specified) Nonmenstrual vaginal bleeding (N93.9: Abnormal uterine and vaginal bleeding, unspecified) Unspecified abdominal pain (R10.9: Unspecified abdominal pain) Orders: cephalexin, 500 mg = 1 cap(s), Cap, Oral, Once, Stop date 02/28/24 22:04:00 EST, STAT, Start date 02/28/24 22:04:00 EST, 02/28/24 22:04:00 EST cephalexin, 500 mg = 1 cap(s), Oral, QID, X 7 day(s), # 28 cap(s), Refills(s) 0, Pharmacy: [facility], 160, cm, 02/28/24 18:19:00 EST, Height/Length Dosing, 78.1, kg, 02/28/24 18:19:00 EST, Weight Dosing ondansetron, 4 mg = 1 tab(s), Tab-Dis, Oral, Once, Stop date 02/28/24 18:29:00 EST, STAT, Start date 02/28/24 18:29:00 EST, 02/28/24 18:29:00 EST ABO/Rh Basic Metabolic Panel Beta hCG Quantitative CBC w/ Auto Diff eGFR PT & PTT UA with Cult Rflx Urine Culture US 1st Trimester US Transvaginal Medications Administered Given Keflex 500 mg Cap, 500 mg, Oral Zofran ODT 4 mg Tab-Dis, 4 mg, Oral Disposition Plan Patient Discharge Condition stable Discharge Disposition home Discharge Prescription List Prescriptions Keflex 500 mg Cap, 500 mg= 1 cap(s), Oral, QID Follow-up With When Contact Information Patrick Carranza In 3 days 03/02/2024 EST [address], [address] [place] [address] Business (1) Additional Instructions: Follow-up with your SCENE SHIFTER tomorrow as scheduled. Use the Keflex as prescribed for a UTI. Return to ED with any new or worsening symptoms. Patient Education First Trimester of , Okzc-tb-Sgid Attestation Patient seen and evaluated by the physician medical staff assistant. Attending physician was present in the emergency department and supervised care. This visit was performed by both the physician and an APC. I performed all aspects of the MDM as documented. This report was transcribed using voice recognition software. Every effort was made to ensure accura (more content not included)...[facility] NorthComment on above:Result Comment: Electronically Signed By: Tatiana Pal PA-C\.br\Date and Time Signed: 02/27/2422:51 EST\.br\Electronically Co- Signed By: Tatiana Pal PA-C\.br\Date and Time Co-Signed: 02/28/24 22:51 EST\.br\Electronically Co-Signed By: Natividad Luna DO\.br\Date and Time Co- Signed: 02/28/24 23:06 ESTED Patient Summaryon [id number] Patient SummaryED Patient Summary [address] [address] Patient Discharge Instructions Person Information Name: DIANNE VALENTE Age: 33 Years Arrival Date: 02/28/2024 18:14:12 Discharge Diagnosis: Abdominal pain during ; Acute lower UTI (urinary tract infection); Nonmenstrual vaginal bleeding; Unspecified abdominal pain Primary Care Physician: NONE, XXXX Provider Information Primary Provider: Natividad Luna DO Advanced Entry Examiner:Tatiana Pal PA-C The exam and treatment you received in the Emergency Department were for an urgent problem and are not intended as complete care. It is important that you follow up with a doctor, nurse practitioner,or physician???s medical staff assistant for ongoing care. If your symptoms become worse or you do not improve asexpected and you are unable to reach your usual health care provider, you should return to the Emergency Department. We are available 24 hours a day. DIANNE VALENTE has been given the following list of patient education materials, prescriptionsand follow-up instructions: Follow-up Instructions: With: Address: When: Patrick Carranza [address] [place], [place] [id number] [facility] (1) In 3 days 03/02/2024 Comments: Follow-up with your SCENE SHIFTER tomorrow as scheduled. Use the Keflex as prescribed for a UTI. Return toED with any new or worsening symptoms. In the event that this physician does not participate in your insurance network, please consult with your insurance company to find a nearby participating provider. Patient Education Materials: First Trimester of , Eodd-ml-Cdib A MESSAGE TO ALL PATIENTS REGARDING OPIOIDS PRESCRIPTION OPIOIDS: WHAT YOU NEED TO KNOW Prescription opioids can be used to help relieve usemjvby-vw-iuyjkk pain and are often prescribed following a surgery or injury, or for certain health conditions. These medications can be an important part of the treatment but also come with serious risks. It is important to work with your healthcare provider to make sure you are getting the safest, most effective care. WHAT ARE THE RISKS AND SIDE EFFECTS OF OPIOID USE? Prescription opioids carry serious risks of addiction and overdose, especially with prolonged use. An opioid overdose, often marked by slowed breathing, can cause sudden . The use of prescription opioids can have a number of side effects as well, even when taken as directed: ??? Tolerance???meaning you might need to take more of the medication for the same pain relief ??? Physical dependence???meaning you have symptoms of withdrawal when a medication is stopped ??? Increased sensitivity to pain ??? Constipation ??? Nausea, vomiting, and dry mouth ??? Sleepiness and dizziness ??? Confusion ??? Depression ??? Low levels of testosterone that can result in lower sex drive, energy, and strength ??? Itching and sweating RISKS ARE GREATER WITH: ??? History of drug misuse, substance use disorder, or overdose ??? Mental health conditions (such as depression or anxiety) ??? Sleep apnea ??? Older age (65 years and older) ??? Avoid alcohol while taking prescription opioids. Also, unless specifically advised by your health care provider, medications to avoid include: ??? Benzodiazepines (such as Xanax or Valium) ??? Muscle relaxants (such as Soma or Flexeril) ??? Hypnotics (such as Ambien or Lunesta) ??? Other prescription opioids KNOW YOUR OPTIONS Talk to your health care provider about ways to manage your pain that don???t involve prescription opioids. Some of these options may actually work better and have fewer risks and side effects. Options may include: ??? Pain relievers such as acetaminophen, ibuprofen, and naproxen ??? Some medication that are also used for depression or seizures ??? Physical therapy and exercise ??? Cognitive behavioral therapy, a psychological, goal-directed approach, in which patients learn how to modify physical, behavioral, and emotional triggers of pain and stress. IF YOU ARE PRESCRIBED OPIOIDS FOR PAIN: ??? Never take opioids in greater amounts or more often than prescribed. ??? Follow up with your primary health care provider. o Work together to create a plan on how to manage your pain. o Talk about ways to help manage your pain that don???t involve prescription opioids. o Talk about any and all concerns and side effects. ??? Help prevent misuse and abuse o Never sell or share prescription opioids. o Never use another person???s prescription opioids. ??? Store prescription opioids in a secure place and out of reach of others (this may include visitors, children, friends, and family). ??? Safely dispose of unused prescription opioids: Find your community drug take-back program or your pharmacy mail-back program, or flush the (more content not included)...[facility] NorthHEMATOLOGYOrdered By: SYSTEM SYSTEM on 75-41-6794Qvmqeroqc/100 WBC (Bld)0.6 %Normal0.0 - 2.0 %Remisol Heme Basophils/Leukocytes Auto (Bld) [Pure # fraction]0.0 E9/LNormal0.0 - 0.2 E9/L Remisol HemeEosinophils (Bld) [#/Vol]0.2 E9/LNormal0.0 - 0.5 E9/LRemisol Heme Eosinophils/100 WBC (Bld)3.6 %Normal0.0 - 8.0 %Remisol HemeErythrocyte distribution width (RBC) [Ratio]13.2 %Gwwwle49.9 - 14.2 %Remisol HemeHematocrit (Bld) [Volume fraction]34.5 %Pczzlo67.0 - 46.0 %Remisol HemeHemoglobin (Bld) [Mass/Vol]12.4 g/qIWpykda60.0 - 16.0 gm/dLRemisol HemeLymphocytes (Bld) [#/Vol] 2.3 E9/LNormal1.0 - 4.0 E9/LRemisol HemeLymphocytes/100 WBC (Bld)34.0 %Normal 14.0 - 50.0 %Remisol HemeMCH (RBC) [Entitic mass]30.9 odXbghcx36.0 - 34.0 pg Remisol HemeMCHC (RBC) [Mass/Vol]36.1 g/nPIrdt83.4 - 36.0 gm/dLRemisol HemeMCV (RBC) [Entitic vol]85.6 mWWngdmm88.0 - 100.0 fLRemisol HemeMonocytes (Bld) [#/Vol]0.4 E9/LNormal0.2 - 1.0 E9/LRemisol HemeMonocytes/100 WBC (Bld)6.7 % Normal4.0 - 14.0 %Remisol HemeNeutrophils (Bld) [#/Vol]3.7 E9/LNormal2.0 - 7.5 E9/LRemisol HemeNeutrophils/100 WBC (Bld)55.1 %Uywkrv39.0 - 75.0 %Remisol Heme Gemwghti814.0 E9/DEicdzl515.0 - 500.0 E9/LRemisol HemePlatelet mean volume (Bld) [Entitic vol]7.9 fLNormal6.4 - 10.8 fLRemisol HemeRBC (Bld) [#/Vol]4.0 E12/LLow 4.3 - 5.9 E12/LRemisol HemeWBC corrected for nucl RBC Auto (Bld) [#/Vol]6.8 E9/L Normal4.0 - 11.0 E9/LRemisol HemePT & PTTon 90-74-0536eCTE Coag (PPP) [Time]36.4 second(s)Bmoxow74.1-36.5Fisher The [facility]no[facility] Pratt HospitalComment on above:Order Comment: poked twice asked other phleb to come try nurse and dr melgar [email or web address] 02/28/2024 18:59:28 ESTResult Comment: Parameter 15 days - 4 weeks 1 - 5 months 6 - 11 months 1 - 5 years 6 - 10 years 11 - 17 years PTT Mean: 35.4 (27.6-45.6) Mean: 33.5 (24.8-40.7) Mean: 32.4 (25.1-40.7) Mean: 31.6 (24.0-39.2) Mean: 31.6 (26.9-38.7) Mean: 31.0 (24.6-38.4) Pediatric Reference ranges were obtained from a study by Eduardo Dueñas et al. prepared from 1437 samples obtained at 7 different centers using the same coagulation reagent and instrumentation as [facility]. Currently there are no coagulation studies available worldwide for children to 14 days, andno normal ranges. Heparin therapeutic range (represented by Anti-Factor Xa activity of 0.2 - 0.4 U/mL) corresponds to PTT of 56.6 - 109.0 sec.Performed By: #### [id number] #### [facility] [address] [place], [place] [address]FRX Coag (PPP) [Relative time]1.02 {INR}Invalid Interpretation CodeFisher The Shepp[facility] & Enoch Pratt HospitalComment on above:Order Comment: pomarkus twice asked other phleb to come try nurse and dr melgar [id number] 02/28/2024 18:59:28 ESTResult Comment: INR results are specifically intended to assess patients stabilized on long-term Anticoagulation therapy suggested INR???s ???Less Intensive Anticoagulation??? 2.0 ??? 3.0 Conventional Range 3.0 ??? 4.5Performed By: #### [id number] #### [facility] [address] [place], [place] [address]FC Coag (PPP) [Time]11.4 second(s)Normal9.4-12.5Fisher [facility] Pratt HospitalComment on above:Order Comment: chio twice asked other phleb to come try nurse and dr melgar [id number] 02/28/2024 18:59:28 ESTResult Comment: 15 days - 4 weeks 1 - 5 months 6 -11 months 1 ??? 5 years 6 ??? 10 years 11 -17 years Mean: 11.2 (9.5 ??? 12.6) Mean: 11.0 (9.7 ??? 12.8) Mean: 11.0 (9.8 ??? 13.0) Mean: 11.3 (9.9 ??? 13.4) Mean: 11.7 (10.0 ??? 14.6) Mean: 11.8 (10.0 - 14.1) Pediatric Reference ranges were obtained from a study by alexis Mcleod al. prepared from 1437 samples obtained at 7 different centers using the same coagulation reagent and instrumentation as [facility]. Currently there are no coagulation studies available worldwide for children to 14 days, andno normal ranges.Performed By: #### [id number] #### [facility] [address] [place], [place] [address]Vju-Cqdlqnm Noteon [id number]-Arrival NotePre-Arrival Note Pre-Arrival Summary Name: ED Current Date: 02/28/2024 18:15:16 EST Gender: Female Date of : Age: 43 Pre-Arrival Type: EMS ETA: 02/28/2024 18:15:00 EST Primary Care Physician: Presenting Problem: 6 WKS IUP, CRAMPING X1H Pre-Arrival User: Diane Teixeira RN Referring Source: Location: Completion Date/Time: 02/28/2024 18:07:00 [facility] Emergency Department Pre-Hospital Report Form Vital Signs: Pre-Hospital Report: Treatment in Route: Response to Treatment: Misc. Issues:NormalAshtabula County Medical CenterUA with Cult Rflxon 02-28-2024 Bilirubin Ql (U)NegativeNormalNegativeAshtabula County Medical CenterComment on above:Performed By: #### [id number] #### [facility] [address] [place], [place] [address]Nrznfox (U)ClearNormalClearAshtabula County Medical CenterComment on above:Performed By: #### [id number] #### [facility] [address] [place], [place] [address]Ayiqe (U)Light-YellowNormalYellowAshtabula County Medical Center Comment on above:Result Comment: Microscopic readings are only performed on those samples that meet specific criteria set forth by [facility].Performed By: #### [id number] #### [facility] [address] [place], [place] [address]Kqoewudrvd cells.squamous Auto (Urine sed) [#/Area]9-10Invalid Interpretation CodeAshtabula County Medical CenterComment on above:Performed By: #### [id number] #### [facility] [address] [place], [place] [address]Bztzcfm Ql (U)NegativeNormalNegNationwide Children's Hospital Comment on above:Performed By: #### [id number] #### [facility] [address] [place], [place] [address]Sxrneneiqk Auto test strip (U) [Mass/Vol]1+ mg/dLAbnormal [facility] CenterComment on above:Performed By: #### [id number] #### [facility] [address] [place], [place] [address]Czhmmhz Auto test strip Ql (U)NegativeNormalNegativeAshtabula County Medical CenterComment on above:Performed By: #### [id number] #### [facility] [address] [place], [place] [address]Czvomyoxr esterase Auto test strip Ql (U)250 Cristobal/uLAbnormal [facility] CenterComment on above:Performed By: #### [id number] #### [facility] [address] [place], [place] [address]Bohkx Auto Ql (U)TraceNormalNegNationwide Children's Hospital Comment on above:Performed By: #### [id number] #### [facility] [address] [place], [place] [address]Zxetqur Auto test strip Ql (U)NegativeNormalNegativeAshtabula County Medical CenterComment on above:Performed By: #### [id number] #### [facility] [address] [place], [place] [address]bC (U)5.0 [pH]Invalid Interpretation Code5.0-9.0As[facility] County Medical CenterComment on above:Performed By: #### [id number] #### [facility] [address] [place], [place] [address]Dnrmbuy Ql (U)NegativeNormalNegNationwide Children's Hospital Comment on above:Performed By: #### [id number] #### [facility] [address] [place], [place] [address]ZKN Ql (U)5-9Kjoubp5-7BnpdfqSelect Medical Specialty Hospital - Cincinnati NorthComment on above:Performed By: #### [id number] #### [facility] [address] [place], [place] [address]Ippvqaez gravity (U) [Rel density]1.021Invalid Interpretation Code1.005-1.030As[facility]ula County Medical CenterComment on above:Performed By: #### [id number] #### [facility] [address] [place], [place] [address]Ektbwhptlmbr (U) [Mass/Vol]NegativeNormalNegativeAshtabula County Medical CenterComment on above:Performed By: #### [id number] #### [facility] [address] [place] [address]OTH Auto (Urine sed) [#/Area]6-1Vdrpim1-5HkwtolSelect Medical Specialty Hospital - Cincinnati NorthComment on above:Performed By: #### [id number] #### [facility] [address] [place] [address]Faay of Urine collection methodClean CatchNormalAshtabula County Medical CenterComment on above:Performed By: #### [id number] #### [facility] [address] [place] [address]ISVLCEBYTMZdhycaj By: SYSTEM SYSTEM on 78-94-2952Gxmpcowsh Ql (U)NegativeNormalNegativemg/dLBEAVER [facility] UA Auto SSClarity (U)Clear (02/28/24 6:30 PM)NormalClearFTM UA Auto SSColor (U)Light-Yellow 1 (02/28/24 6:30 PM)NormalYellowBEAVER COUNTY MEMORIAL [facility]OSP[facility] UA Auto SSComment on above:Interpretive Data: Microscopic readings are only performed on those samples that meet specific criteria set forth by [facility].Epithelial cells.squamous Auto (Urine sed) [#/Area]9-10 graded/HPFInvalid Interpretation CodeBEAVER COUNTY MEM[facility]IAL [facility] UA Auto SSGlucose Ql (U)NegativeNormalNegativemg/dLBEAVER COUNTY [facility] UA Auto SS Hemoglobin Auto test strip (U) [Mass/Vol]1+ mg/dLInvalid Interpretation Code Negativemg/dLFT UA Auto SSKetones Auto test strip Ql (U)NegativeNormal Negativemg/dLFT UA Auto SSLeukocyte esterase Auto test strip Ql (U)250 Cristobal/uL Cristobal/uLInvalid Interpretation CodeNegativeLeu/uLBEAVER COUNTY [facility] UA Auto SSMucus Auto Ql (U) Trace graded/LPFNormalNegativegraded/LPFFTMC UA Auto SSNitrite Auto test strip Ql (U)NegativeNormalNegativemg/dLFTMC UA Auto SSpH (U)5.0 *NA* (02/28/24 6:30 PM)Invalid Interpretation Code5.0 - 9.0[facility] UA Auto SSProtein Ql (U)NegativeNormalNegativemg/dLFT UA Auto SSRBC Ql (U)0-3 graded/HPFNormal 0-3graded/HPFBEAVER COUNTY MEMORIAL [facility]OSP[facility] UA Auto SSSpecific gravity (U) [Rel density]1.021 *NA* (02/28/24 6:30 PM)Invalid Interpretation Code1.005 - 1.030[facility] UA Auto SS Urobilinogen (U) [Mass/Vol]NegativeNormalNegativemg/dLFT UA Auto SSWBC Auto (Urine sed) [#/Area]0-5 graded/HPFNormal0-5graded/HPFBEAVER COUNTY MEMORIAL [facility]OS[facility] UA Auto SSURINALYSIS Ordered By: Tatiana Pal on 99-05-0070DW Spec DescClean Catch (02/28/24 6:30 PM)NormalBEAVER COUNTY MEM[facility] UA Auto SS eGFRon 95-22-2521bGJR541 mL/min/1.73 t1Oixmym>=59Fisher The [facility] Pratt HospitalComment on above:Performed By: #### [id number] #### [facility] [address] [place] [address]JTWOA STREP SCR NURSINGon 07-09-2023S. pyogenes Ag EIA Ql (Throat)NegativeNormalNEGProMedica Sutter Medical Center, SacramentoComment on above:Performed By: #### [id number] #### [facility] ([id number]) [address] [place], [place] [address]JRXC/FLU A+B/RSV by NAAT/Molecularon 40-17-3360BFQR/FLU A+B/RSV by NAAT/MolecularFLU A PCR Negative (qualifier value) FLU B PCR Positive (qualifier value) RSV by PCR Negative (qualifier value) SARS CoV 2 Not detected (qualifier value) NOTE The Xpert Xpress SARS-CoV-2/Flu/RSV Plus test is a rapid, multiplexed real-time RT-PCR test intended for the simultaneous qualitative detection and differentiation of SARS-CoV-2, influenza A, influenza B and respiratory syncytial virus (RSV) viral RNA from individuals suspected of respiratory viral infection consistent with COVID-19 by their healthcare provider. This test has not been validated in asymptomatic patients. The Xpert Xpress SARS-CoV-2 test is intended for use by qualified and trained operators who are performing tests using either Deligic or LetsCram systems and is limited to laboratories that meet the CLIA requirements to perform high and moderate complexity tests. The Xpert Xpress SARS-CoV-2/Flu/RSV Plus is only for use under the Food and Drug Administration's Emergency Use Authorization. Results are for the simultaneous detection and differentiation of SARS-CoV-2, influenza A, influenza B and RSV nucleic acids in clinical specimens. SARS-CoV-2, influenza A, influenza B and RSV RNA identified by this test are generally detectable in upper respiratory samples during the acute phase of infection. Positive results are indicative of the presence of the identified virus, but do not rule out bacterial infection or co-infection with other pathogens not detected by this test. Clinical correlation with patient history and other diagnostic information is necessary to determine patient infection status. The agent detected may not be the definite cause of disease. Negative results do not preclude SARS-CoV-2, influenza A, influenza B and RSV infection and should not be used as the sole basis for treatment or other patient management decisions. Negative results must be combined with clinical observations, patient history and epidemiological information. An Invalid result may occur with specimen-associated inhibition unable to be resolved with specimen repeat. Fact Sheet for Healthcare Providers: https://www.fda.gov/media/642904/download Fact Sheet for Patients: https://www.fda.gov/media/605288/downloadNormalProMedica Sutter Medical Center, SacramentoComment on above:Performed By: #### COVFLR #### [facility] ([id number]) [address] [place] [address], [place], [place] [address]LWK with Diffon 90-59-1914Etv. Basophil0.03 k/uLNormal0.00-0.20 [facility] HospitalComment on above:Performed By: #### CMPF, LIPR, CDP, TSHX, VD25 #### [address] [address] Freight Weigher: MDAbs. DanoImm.Granulocyte<0.57Qzyeqe9.00-0.30[facility] HospitalComment on above:Performed By: #### CMPF, LIPR, CDP, TSHX, VD25 #### [place] [address] Freight Weigher: Zacarias Matson.Neutrophil (Seg)4.15 k/uLNormal1.50-8.10 [facility] HospitalComment on above:Performed By: #### CMPF, LIPR, CDP, TSHX, VD25 #### [place] [address] Freight Weigher: Von Antonio MDBasophils/100 WBC (Bld)0 %Normal0-2Mer[facility] Seneca HospitalComment on above:Performed By: #### CMPF, LIPR, CDP, TSHX, VD25 #### [place] [address] Freight Weigher: Von Antonio MDEosinophils (Bld) [#/Vol]0.34 10*3/uLNormal 0.00-0.44[facility] HospitalComment on above:Performed By: #### CMPF, LIPR, CDP, TSHX, VD25 #### [facility] [address] [place] [address] Freight Weigher: Von Antonio MDEosinophils/100 WBC (Bld)5 %High1-4[facility] HospitalComment on above:Performed By: #### CMPF, LIPR, CDP, TSHX, VD25 #### [address] [address] Freight Weigher: Von Antonio MDErythrocyte distribution width (RBC) [Ratio]12.3 %Ywpmnl96.8-14.4[facility] HospitalComment on above:Performed By: #### CMPF, LIPR, CDP, TSHX, VD25 #### [address] [address] Freight Weigher: Von Antonio MDHematocrit (Bld) [Volume fraction]38.7 %Normal 36.3-47.1MEisenhower Medical CenterComment on above:Performed By: #### CMPF, LIPR, CDP, TSHX, VD25 #### [place] [address] Freight Weigher: Von Antonio MDHemoglobin (Bld) [Mass/Vol]13.3 g/dLNormal 11.9-15.1MEisenhower Medical CenterComment on above:Performed By: #### CMPF, LIPR, CDP, TSHX, VD25 #### [address] [address] Freight Weigher: Von Antonio MDImmature granulocytes/100 WBC (Bld)0 %Normal0 [facility] HospitalComment on above:Performed By: #### CMPF, LIPR, CDP, TSHX, VD25 #### [address] [address] Freight Weigher: Von Antonio MDLymphocytes (Bld) [#/Vol]2.41 10*3/uLNormal 1.10-3.70[facility] HospitalComment on above:Performed By: #### CMPF, LIPR, CDP, TSHX, VD25 #### [facility] [address] [place] [address] Freight Weigher: Von Antonio MDLymphocytes/100 WBC (Bld)33 %Huccwu68-35HuhewPromedica Defiance Regional HospitalComment on above:Performed By: #### CMPF, LIPR, CDP, TSHX, VD25 #### [facility] [address] [place] [address] Freight Weigher: MINDY Matson (RBC) [Entitic mass]29.3 iiHdbfhc84.2-33.5 [facility] HospitalComment on above:Performed By: #### CMPF, LIPR, CDP, TSHX, VD25 #### [facility] [address] [place], [place] [id number] Freight Weigher: MINDY MatsonC (RBC) [Mass/Vol]34.4 g/rRAmfkkt03.4-34.8 [facility] HospitalComment on above:Performed By: #### CMPF, LIPR, CDP, TSHX, VD25 #### [facility] [address] [place] [address] Freight Weigher: SWETHA MatsonCV (RBC) [Entitic vol]85.2 fVEexlnn08.6-102.9 [facility] HospitalComment on above:Performed By: #### CMPF, LIPR, CDP, TSHX, VD25 #### [facility] [address] [place] [address] Freight Weigher: SWETHA Matsononocytes (Bld) [#/Vol]0.34 10*3/uLNormal 0.10-1.20[facility] HospitalComment on above:Performed By: #### CMPF, LIPR, CDP, TSHX, VD25 #### [facility] [address] [place] [address] Freight Weigher: SWETHA Matsononocytes/100 WBC (Bld)5 %Normal3-12[facility] HospitalComment on above:Performed By: #### CMPF, LIPR, CDP, TSHX, VD25 #### [address] [address] Freight Weigher: Jose G Matsonutrophil (Seg)57 %Ceyxar13-75DyggePromedica Defiance Regional HospitalComment on above:Performed By: #### CMPF, LIPR, CDP, TSHX, VD25 #### [facility] [address] [place] [address] Freight Weigher: Von Antonio MDNRBC Automated0.0 per 100 WBCNormal0.0[facility] HospitalComment on above:Performed By: #### CMPF, LIPR, CDP, TSHX, VD25 #### [facility] [address] [place] [address] Freight Weigher: Solo Matson mean volume (Bld) [Entitic vol]10.5 fL Normal8.1-13.5[facility] HospitalComment on above:Performed By: #### CMPF, LIPR, CDP, TSHX, VD25 #### [facility] [address] [place] [address] [address] Freight Weigher: Adelia Matsontebeba (Bld) [#/Vol]308 10*3/cNFisqxk475-180 [facility] HospitalComment on above:Performed By: #### CMPF, LIPR, CDP, TSHX, VD25 #### [facility] [employer] [address] [place] [address] Freight Weigher: MANOJ MatsonBC (Bld) [#/Vol]4.54 10*6/uLNormal3.95-5.11 [facility] HospitalComment on above:Performed By: #### CMPF, LIPR, CDP, TSHX, VD25 #### [facility] [employer] [address] [place] [address] Freight Weigher: ALICIA Matson (Bld) [#/Vol]7.3 10*3/uLNormal3.5-11.3MEisenhower Medical CenterComment on above:Performed By: #### CMPF, LIPR, CDP, TSHX, VD25 #### [address] [address] Freight Weigher: JAYA MatsonUtah State Hospital,Fastingon 42-41-0491Qmzuexd [Mass/Vol]4.2 g/dLNormal3.5-5.2MEisenhower Medical CenterComment on above: Performed By: #### CMPF, LIPR, CDP, TSHX, VD25 #### [facility] [employer] [address] [place] [address] Freight Weigher: Von Antonio MDAlbumin/Glob Ratio1.7Fefynh6.0-2.5[facility] HospitalComment on above:Performed By: #### CMPF, LIPR, CDP, TSHX, VD25 #### [facility] [employer] [address] [place] [address] Freight Weigher: Candido Matsonline Phos75 U/VQydtlf88-852OxljhPromedica Defiance Regional HospitalComment on above:Performed By: #### CMPF, LIPR, CDP, TSHX, VD25 #### [facility] [employer] [address] [place] [address] Freight Weigher: Von Antonio MDALT [Catalytic activity/Vol]10 U/LNormal5-33 [facility] HospitalComment on above:Performed By: #### CMPF, LIPR, CDP, TSHX, VD25 #### [employer] [address] [place] [address] Freight Weigher: Von Antonio MDAnion gap [Moles/Vol]14 mmol/LNormal9-17[facility] HospitalComment on above:Performed By: #### CMPF, LIPR, CDP, TSHX, VD25 #### [address] [address] Freight Weigher: Von Antonio MDAST [Catalytic activity/Vol]17 U/LNormal<32[facility] HospitalComment on above:Performed By: #### CMPF, LIPR, CDP, TSHX, VD25 #### [facility] [employer] [address] [place] [address] Freight Weigher: Von Antonio MDBilirubin [Mass/Vol]0.2 mg/dLLow0.3-1.2MEisenhower Medical CenterComment on above:Performed By: #### CMPF, LIPR, CDP, TSHX, VD25 #### [facility] [employer] [address] [place] [address] Freight Weigher: Von Antonio MDCalcium [Mass/Vol]9.2 mg/dLNormal8.6-10.4[facility] HospitalComment on above:Performed By: #### CMPF, LIPR, CDP, TSHX, VD25 #### [facility] [employer] [address] [place] [address] Freight Weigher: Von Antonio MDChloride [Moles/Vol]102 mmol/DQmoind77-653LnacqPromedica Defiance Regional HospitalComment on above:Performed By: #### CMPF, LIPR, CDP, TSHX, VD25 #### [facility] [employer] [address] [place] [address] Freight Weigher: Von Antonio MDCO2 [Moles/Vol]23 mmol/FUexhvm94-09DfsmoPromedica Defiance Regional HospitalComment on above:Performed By: #### CMPF, LIPR, CDP, TSHX, VD25 #### [address] [address] Freight Weigher: JAYA Matsonreatinine [Mass/Vol]0.63 mg/dLNormal0.50-0.90 [facility] HospitalComment on above:Performed By: #### CMPF, LIPR, CDP, TSHX, VD25 #### [address] [address] Freight Weigher: Von Antonio MDGFR/1.73 sq M.predicted among non-blacks MDRD (S/P/Bld) [Vol rate/Area]mL/min/{1.73_m2}Normal>60[facility] HospitalComment on above:Result Comment: These results are not intended for use in patients <18 years of age. eGFR results are calculated without a race factor using the 2020 CKD-EPI equation. Careful clinical correlation is recommended, particularly when comparing to results calculated using previous equations. The CKD-EPI equation is less accurate in patients with extremes of muscle mass, extra-renal metabolism of creatine, excessive creatine ingestion, or following therapy that affects renal tubular secretion.Performed By: #### CMPF, LIPR, CDP, TSHX, VD25 #### [address] [address] Freight Weigher: Von Antonio MDGlucose [Mass/Vol]95 mg/lNUxrhvx77-08GbrhsEisenhower Medical CenterComment on above:Performed By: #### CMPF, LIPR, CDP, TSHX, VD25 #### [address] [address] Freight Weigher: GISSELLE Matsonotassium [Moles/Vol]4.0 mmol/LNormal3.7-5.3 [facility] HospitalComment on above:Performed By: #### CMPF, LIPR, CDP, TSHX, VD25 #### [facility] [employer] [address] [place] [address] Freight Weigher: GISSELLE Matsonrotein [Mass/Vol]6.9 g/dLNormal6.4-8.3MEisenhower Medical CenterComment on above:Performed By: #### CMPF, LIPR, CDP, TSHX, VD25 #### [facility] [address] [place] [address] Freight Weigher: ALLISON Matsonodium [Moles/Vol]139 mmol/VKwveff217-718XciqqPromedica Defiance Regional HospitalComment on above:Performed By: #### CMPF, LIPR, CDP, TSHX, VD25 #### [facility] [employer] [address] [place] [address] Freight Weigher: Von Antonio MDUrea nitrogen [Mass/Vol]8 mg/dLNormal6-20[facility] HospitalComment on above:Performed By: #### CMPF, LIPR, CDP, TSHX, VD25 #### [facility] [employer] [address] [place] [address] Freight Weigher: Von Antonio MDLipid Profileon 19-58-4658Qlnkrbayzkg [Mass/Vol] 160 mg/dLNormal<200[facility] HospitalComment on above:Result Comment: Cholesterol Guidelines: <200 Desirable 200-240 Borderline >240 UndesirablePerformed By: #### CMPF, LIPR, CDP, TSHX, VD25 #### [facility] [employer] [address] [place] [address] Freight Weigher: JAYA Matsonholesterol in HDL [Mass/Vol]57 mg/dLNormal>40 [facility] HospitalComment on above:Result Comment: HDL Guidelines: <40 Undesirable 40-59 Borderline >59 DesirablePerformed By: #### CMPF, LIPR, CDP, TSHX, VD25 #### [facility] [employer] [address] [place] [address] Freight Weigher: JAYA Matsonholesterol in LDL [Mass/Vol]86 mg/dLNormal0-130 [facility] HospitalComment on above:Result Comment: LDL Guidelines: <100 Desirable 100-129 Near to/above Desirable 130-159 Borderline >159 Undesirable Direct (measured) LDL and calculated LDL are not interchangeable tests.Performed By: #### CMPF, LIPR, CDP, TSHX, VD25 #### [employer] [address] [place] [address] Freight Weigher: JAYA Matsonholestkylie.total/Cholesterol in HDL [Mass ratio]2.8 {ratio}Normal<5[facility] HospitalComment on above: Performed By: #### CMPF, LIPR, CDP, TSHX, VD25 #### [facility] [address] [place] [address] Freight Weigher: Von Antonio MDTriglyceride [Mass/Vol]87 mg/dLNormal<150[facility] HospitalComment on above:Result Comment: Triglyceride Guidelines: <150 Desirable 150-199 Borderline 200-499 High >499 Very high Based on AHA Guidelines for fasting triglyceride, January 2012.Performed By: #### CMPF, LIPR, CDP, TSHX, VD25 #### [facility] [address] [place] [address] Freight Weigher: Von Antonio MDHARBORVIEW MEDICAL CENTER w/reflex to FT4on 25-90-8417Wsmjuwl Stim. Horm.0.92 uIU/mLNormal0.30-5.00[facility] HospitalComment on above: Performed By: #### CMPF, LIPR, CDP, TSHX, VD25 #### [employer] [address] [place] [address] Freight Weigher: Von Antonio MDVitamin D 25 OHon 43-84-3464Juniixt D 25 OH33.8 ng/mLNormal>29.9[facility] HospitalComment on above:Result Comment: Reference Range: Vitamin D status Range Deficiency <20 ng/mL Mild Deficiency 20-30 ng/mL Sufficiency 30-100 ng/mL Toxicity >100 ng/mLPerformed By: #### CMPF, LIPR, CDP, TSHX, VD25 #### [employer] [facility] [place] [address] Freight Weigher: Von Antonio MDActivated partial thromboplastin time (aPTT) in platelet poor plasma by coagulation aOrdered By: Jack Wolff on 09-80-1097tLXU Coag (PPP) [Time]35.5 s25.1-36.5FEast Ohio Regional HospitalBasophils Auto (Bld) [#/Vol]Ordered By: Jack Wolff on 06-61-2406Xmgttcxby (Bld) [#/Vol]0.0 10*3/uL0.0-0.2FEast Ohio Regional HospitalBasophils/100 WBC Auto (Bld) Ordered By: Jack Wolff on 87-13-4229Ifoiingnt/100 WBC (Bld)0.6 %.[facility] FoundationCreatinine and Glomerular filtration rate.predicted panel (S/P/Bld)Ordered By: Jack Wolff on 98-36-4722Ilmuavyaay [Mass/Vol]0.69 mg/dL 0.44-1.03[facility] FoundationEosinophils Auto (Bld) [#/Vol]Ordered By: Jack Wolff on 60-84-3320Awughkrvisy (Bld) [#/Vol]0.7 10*3/uL0.0-0.45 [facility] FoundationEosinophils/100 WBC Auto (Bld)Ordered By: Jack Wolff on 08-03-5142Jmeauzakzdl/100 WBC (Bld)8.9 %.[facility] FoundationErythrocyte distribution width Auto (RBC) [Ratio]Ordered By: Jack Wolff on 77-08-9170Npvydsggjxe distribution width (RBC) [Ratio]13.0 %11.9-15.3 [facility] FoundationEstimated glomerular filtration rate (GFR) non- AmericanOrdered By: Jack Wolff on 77-98-4954MTF/1.73 sq M.predicted among non-blacks MDRD (S/P/Bld) [Vol rate/Area]> 60 mL/MinCleveland Clinic FoundationHematocrit Auto (Bld) [Volume fraction]Ordered By: Jack Wolff on 59-26-7630Fsmcxcrzae (Bld) [Volume fraction]39.3 %34.0-46.4FEast Ohio Regional HospitalHemoglobin [Mass/volume] in BloodOrdered By: Jack Wolff on 56-18-9924Rskfqepykk (Bld) [Mass/Vol]13.3 g/dL11.8-15.4FEast Ohio Regional HospitalLaboratory - CoagulationOrdered By: Jack Wolff on 99-73-0104AX Coag (PPP) [Time]11.5 s9.0-12.9[facility] FoundationLaboratory - Hematology and Cell countsOrdered By: Jack Wolff on 43-68-5595Ppeglnqbk RBC/100 WBC (Bld) [Ratio]0.0 %0-0.5FEast Ohio Regional HospitalLeukocytes [#/volume] in Blood by Automated countOrdered By: Jack Wolff on 81-82-6366YMJ (Bld) [#/Vol]7.5 10*3/uL4.5-11.0[facility] FoundationLymphocytes Auto (Bld) [#/Vol]Ordered By: Jack Wolff on 92-52-0907Ltowwzcmpdq (Bld) [#/Vol]2.6 10*3/uL1.00-4.8[facility] FoundationLymphocytes/100 WBC Auto (Bld)Ordered By: Jack Wolff on 85-33-0978Qmcrkzvhdvx/100 WBC (Bld)34.7 %. [facility] Auto (RBC) [Entitic mass]Ordered By: Jack Wolff on 40-85-6084DJQ (RBC) [Entitic mass]29.1 pg24.7-34.3FEast Ohio Regional HospitalMCHC Auto (RBC) [Mass/Vol]Ordered By: Jack Wolff on 11-15-2022 MCHC (RBC) [Mass/Vol]33.9 g/dL32.0-35.0[facility] FoundationMCV Auto (RBC) [Entitic vol]Ordered By: Jack Wolff on 13-50-8618WYC (RBC) [Entitic vol]85.9 uH74-160UsyihcsaaCleveland Clinic FoundationMonocytes Auto (Bld) [#/Vol] Ordered By: Jack Wolff on 36-82-8079Wakmbyznr (Bld) [#/Vol]0.6 10*3/uL0.0-0.8 [facility] FoundationMonocytes/100 WBC Auto (Bld)Ordered By: Jack Wolff on 83-73-8594Xwelxruto/100 WBC (Bld)8.2 %.[facility] FoundationNeutrophils Auto (Bld) [#/Vol]Ordered By: Jack Wolff on 03-04-2022 Neutrophils (Bld) [#/Vol]3.6 10*3/uL1.8-7.7FEast [facility] Regional Hospital Neutrophils/100 WBC Auto (Bld)Ordered By: Jack Wolff on 03-04-2022 Neutrophils/100 WBC (Bld)47.6 %.[facility] FoundationNo Panel InformationOrdered By: Jack Wolff on 88-75-5165Wurmcmzaa GFR ()> 60 mL/MinCleveland Clinic FoundationComment on above:GFR estimated reference range: According to KDOQI guidelines, <60 ml/min/1.73m2 is sufficient todiagnose a patient with chronic kidney disease.Pharmacy Creatinine Clearance (Ciii048.22[facility] FoundationPlatelet mean volume Auto (Bld) [Entitic vol]Ordered By: Jack Wolff on 16-62-3291Lelkffed mean volume (Bld) [Entitic vol]8.4 fL6.3-10.7FEast Ohio Regional HospitalPlatelet poor plasma international normalized ratio (INR) by coagulation assay (relatOrdered By: Jack Wolff on 09-13-3644CBX Coag (PPP) [Relative time]1.0 {INR}[facility] FoundationComment on above:INR Therapeutic Range A) Pre- and Peroperative OAT started two weeks before surgery. NOT HIP SURGERY: 1.5 - 2.5 HIP SURGERY: 2 - 3B) Primary and secondary prevention of venous THROMBOSIS: 2 - 3C) Active venous thrombosis, pulmonary embolismand prevention of recurrent venous thrombosis: 2 - 3D) Prevention of arterial thromboembolismincluding patients with mechanical heart valves: 3 - 4.5Platelets Auto (Bld) [#/Vol] Ordered By: Jack Wolff on 28-04-1878Svgsicylq (Bld) [#/Vol]274 10*3/rO480-625 [facility] FoundationRBC Auto (Bld) [#/Vol]Ordered By: Jack Wolff on 99-86-1175LFP (Bld) [#/Vol]4.58 10*6/uL3.60-5.00German Hospitalerum or plasma anion gap determinationOrdered By: Jack Wolff on 92-31-5592Irjam gap [Moles/Vol]14.4 mmol/L6.0-15.0German Hospitalerum or plasma calcium measurement (mass/volume)Ordered By: Jack Wolff on 18-77-2694Friskts [Mass/Vol]9.4 mg/dL8.2-10.2FHenry County Hospitalerum or plasma chloride measurement (moles/volume)Ordered By: Jack Wolff on 76-30-6081Wzaokvsd [Moles/Vol]101 mmol/Z93-497OmqrjkucwGerman Hospitalerum or plasma glucose measurement (mass/volume)Ordered By: Jack Wolff on 77-45-5362Stejatk [Mass/Vol]105 mg/uL98-785PurdktbbeCleveland Clinic FoundationComment on above:ADA recommended reference rangeRandom Glucose Reference Range is dependent on time and content of last meal. Glucose of more than 200 mg/dL in a nonstressed, ambulatory subject supports the diagnosisof Diabetes Mellitus.Serum or plasma potassium measurement (moles/volume)Ordered By: Jack Wolff on 05-06-1467Lbowsxbri [Moles/Vol]4.1 mmol/L3.5-5.1FHenry County Hospitalerum or plasma sodium measurement (moles/volume)Ordered By: Jack Wolff on 33-61-8100Jpnpov [Moles/Vol]135 mmol/I463-594HlxwqlzcgGerman Hospitalerum or plasma total carbon dioxide measurement (moles/volume) Ordered By: Jack Wolff on 76-14-6408WN5 [Moles/Vol]23.7 mmol/L22.0-30.0 German Hospitalerum or plasma urea nitrogen measurement (mass/volume)Ordered By: Jack Wolff on 02-66-2235Zdha nitrogen [Mass/Vol]14 mg/dL9-23[facility] FoundationTroponin I.cardiac [Mass/volume] in Serum or Plasma by High sensitivity methodOrdered By: Jack Woflf on 03-04-2022 Troponin I.cardiac High sensitivity method [Mass/Vol]< 3 pg/mLCleveland Clinic FoundationCBC with Diffon 36-88-8962Vnt. Basophil0.00 k/uLNormal 0.00-0.20[facility] HospitalComment on above:Performed By: #### CP, CDP, LIP, HCG #### [facility] [employer] [address] [place] [address] Freight Weigher: Zacarias Matson.Imm.Granulocyte0.09 k/uLNormal0.00-0.30[facility] HospitalComment on above:Performed By: #### CP, CDP, LIP, HCG #### [facility] [employer] [address] [place] [address] Freight Weigher: Zacarias Matson.Neutrophil (Seg)7.48 k/uLNormal1.50-8.10 [facility] HospitalComment on above:Performed By: #### CP, CDP, LIP, HCG #### [employer] [address] [place] [address] Freight Weigher: Rafael Matsonsophils/100 WBC (Bld)0 %Normal0-2MEisenhower Medical CenterComment on above:Performed By: #### CP, CDP, LIP, HCG #### [facility] [address] [place] [address] Freight Weigher: Von Antonio MDEosinophils (Bld) [#/Vol]0.09 10*3/uLNormal 0.00-0.44[facility] HospitalComment on above:Performed By: #### CP, CDP, LIP, HCG #### [facility] [address] [place] [address] Freight Weigher: Von Antonio MDEosinophils/100 WBC (Bld)1 %Normal1-4[facility] HospitalComment on above:Performed By: #### CP, CDP, LIP, HCG #### [facility] [employer] [address] [place] [address] Freight Weigher: Von Antonio MDImmature granulocytes/100 WBC (Bld)1 %Lavo2ZlgtuPromedica Defiance Regional HospitalComment on above:Performed By: #### CP, CDP, LIP, HCG #### [facility] [employer] [address] [place] [address] Freight Weigher: Von Antonio MDLymphocytes (Bld) [#/Vol]0.35 10*3/uLLow 1.10-3.70[facility] HospitalComment on above:Performed By: #### CP, CDP, LIP, HCG #### [place] [address] Freight Weigher: Dmitry Matsonmphocytes/100 WBC (Bld)4 %Isn40-35YjclaPromedica Defiance Regional HospitalComment on above:Performed By: #### CP, CDP, LIP, HCG #### [facility] [employer] [address] [place] [address] Freight Weigher: SWETHA Matsononocytes (Bld) [#/Vol]0.79 10*3/uLNormal 0.10-1.20[facility] HospitalComment on above:Performed By: #### CP, CDP, LIP, HCG #### [facility] [address] [place] [address] Freight Weigher: SWETHA Matsononocytes/100 WBC (Bld)9 %Normal3-12[facility] HospitalComment on above:Performed By: #### CP, CDP, LIP, HCG #### [facility] [address] [place] [address] Freight Weigher: SWETHA Matsonorphology Curt (Bld) [Interp]NormalNormalPromedica Defiance Regional HospitalComment on above:Performed By: #### CP, CDP, LIP, HCG #### [facility] [address] [place] [address] Freight Weigher: Von Antonio MDNeutrophil (Seg)85 %Zfer37-51UygylPromedica Defiance Regional HospitalComment on above:Performed By: #### CP, CDP, LIP, HCG #### [facility] [address] [place] [address] Freight Weigher: Von Antonio MDErythrocyte distribution width (RBC) [Ratio]11.7 %Low11.8-14.4[facility] HospitalComment on above:Performed By: #### CP, CDP, LIP, HCG #### [facility] [address] [place] [address] Freight Weigher: Von Antonio MDHematocrit (Bld) [Volume fraction]37.6 %Normal 36.3-47.1MEisenhower Medical CenterComment on above:Performed By: #### CP, CDP, LIP, HCG #### [facility] [address] [place] [address] Freight Weigher: Von Antonio MDHemoglobin (Bld) [Mass/Vol]13.2 g/dLNormal 11.9-15.1MEisenhower Medical CenterComment on above:Performed By: #### CP, CDP, LIP, HCG #### [facility] [address] [place], [place] [address] [place] [address] Freight Weigher: SWETHA MatsonCH (RBC) [Entitic mass]29.8 hpPuqpig24.2-33.5 [facility] HospitalComment on above:Performed By: #### CP, CDP, LIP, HCG #### [address] [address] Freight Weigher: MINDY MatsonC (RBC) [Mass/Vol]35.1 g/hQPyoo95.4-34.8[facility] HospitalComment on above:Performed By: #### CP, CDP, LIP, HCG #### [address] [address] Freight Weigher: SWETHA MatsonCV (RBC) [Entitic vol]84.9 tWMzudud18.6-102.9 [facility] HospitalComment on above:Performed By: #### CP, CDP, LIP, HCG #### [address] [address] Freight Weigher: WEN Matson Automated0.0 per 100 WBCNormal0.0[facility] HospitalComment on above:Performed By: #### CP, CDP, LIP, HCG #### [place] [address] Freight Weigher: Solo Matson mean volume (Bld) [Entitic vol]10.7 fL Normal8.1-13.5[facility] HospitalComment on above:Performed By: #### CP, CDP, LIP, HCG #### [address] [address] Freight Weigher: Brie Matson (Bld) [#/Vol]210 10*3/rVXfvxki347-568 [facility] HospitalComment on above:Performed By: #### CP, CDP, LIP, HCG #### [facility] [address] [place] [address] Freight Weigher: MANOJ Matson (d) [#/Vol]4.43 10*6/uLNormal3.95-5.11 [facility] HospitalComment on above:Performed By: #### CP, CDP, LIP, HCG #### [facility] [address] [place] [address] Freight Weigher: ALICIA Matson (d) [#/Vol]8.8 10*3/uLNormal3.5-11.3MEisenhower Medical CenterComment on above:Performed By: #### CP, CDP, LIP, HCG #### [facility] [address] [place] [address] Freight Weigher: JAYA MatsonOVIBernardo-19, Rapidon 84-18-7692Hbnisydfikihdd and review of laboratory resultsAbnoDickenson Community Hospital-CoV-2 (COVID- 19) RNA INGRID+probe Ql (Unsp spec)DetectedAbnormInova Fair Oaks Hospital on above: Rapid NAAT: The specimen is POSITIVE for SARS-Cov-2, the novel coronavirus associated with COVID-19. This test has been authorized by the FDA under an Emergency Use Authorization (EUA) for use by authorized laboratories. The ID NOW COVID-19 assay is designed to detect the virus that causes COVID-19 in patients with signs and symptoms of infection who are suspected of COVID-19. An individual without symptoms of COVID-19 and who is not shedding SARS-CoV-2 virus would expect to have a negative (not detected) result in this assay. Fact sheet for Healthcare Providers: https://www.fda.gov/media/228533/download Fact sheet for Patients: https://www.fda.gov/media/932643/download Methodology: Isothermal Nucleic Acid Amplification Results reported to the appropriate Health Department Specimen Description.NASOPHARYNGEAL SWABBON [facility] Metabolic Profon 11-02-2021(cont.)NormalPromedica Defiance Regional HospitalComment on above:Result Comment: Average GFR for 20-29 years old: 116 mL/min/1.73sq m Chronic Kidney Disease: <60 mL/min/1.73sq m Kidney failure: <15 mL/min/1.73sq m eGFR calculated using average adult body mass. Additional eGFR calculator available at: http://www.BubbleNoise.Savedaily/multiple_crcl_2012.htmPerformed By: #### CP, CDP, LIP, HCG #### [facility] [address] [place] [address] Freight Weigher: Von Antonio MDAlbumin [Mass/Vol]4.4 g/dLNormal3.5-5.2MEisenhower Medical CenterComment on above:Performed By: #### CP, CDP, LIP, HCG #### [facility] [employer] [address] [place] [address] Freight Weigher: Von Antonio MDAlbumin/Glob Ratio1.2Owrozh2.0-2.5[facility] HospitalComment on above:Performed By: #### CP, CDP, LIP, HCG #### [facility] [address] [place] [address] Freight Weigher: Von Antonio MDAlkaline Phos72 U/MUgdvay07-635YioyoPromedica Defiance Regional HospitalComment on above:Performed By: #### CP, CDP, LIP, HCG #### [facility] [address] [place] [address] Freight Weigher: Von Antonio MDALT [Catalytic activity/Vol]11 U/LNormal5-33 [facility] HospitalComment on above:Performed By: #### CP, CDP, LIP, HCG #### [facility] [address] [place] [address] Freight Weigher: Von Antonio MDAnion gap [Moles/Vol]8 mmol/LLow9-17[facility] HospitalComment on above:Performed By: #### CP, CDP, LIP, HCG #### [address] [address] Freight Weigher: Von Antonio MDAST [Catalytic activity/Vol]22 U/LNormal<32[facility] HospitalComment on above:Performed By: #### CP, CDP, LIP, HCG #### [address] [address] Freight Weigher: Von Antonio MDBilirubin [Mass/Vol]0.30 mg/dLNormal0.3-1.2MEisenhower Medical CenterComment on above:Performed By: #### CP, CDP, LIP, HCG #### [address] [address] Freight Weigher: Von Antonio MDCalcium [Mass/Vol]9.3 mg/dLNormal8.6-10.4[facility] HospitalComment on above:Performed By: #### CP, CDP, LIP, HCG #### [place] [address] Freight Weigher: Von Antonio MDChloride [Moles/Vol]99 mmol/CPbasya56-342JitbdPromedica Defiance Regional HospitalComment on above:Performed By: #### CP, CDP, LIP, HCG #### [address] [address] Freight Weigher: Von Antonio MDCO2 [Moles/Vol]25 mmol/FEvnesi85-64NynpdPromedica Defiance Regional HospitalComment on above:Performed By: #### CP, CDP, LIP, HCG #### [address] [address] Freight Weigher: Von Antonio MDCreatinine [Mass/Vol]0.71 mg/dLNormal0.50-0.90 [facility] HospitalComment on above:Performed By: #### CP, CDP, LIP, HCG #### [facility] [address] [place] [address] Freight Weigher: Von Antonio MDGFR, Amer>60Normal>60[facility] HospitalComment on above:Performed By: #### CP, CDP, LIP, HCG #### [facility] [address] [place] [address] Freight Weigher: DAVIAN Matson,non Amer>60Normal>60[facility] HospitalComment on above:Performed By: #### CP, CDP, LIP, HCG #### [facility] [address] [place] [address] Freight Weigher: Von Antonio MDGlucose [Mass/Vol]105 mg/iIUoma44-04Fbgcm Seneca HospitalComment on above:Performed By: #### CP, CDP, LIP, HCG #### [facility] [address] [place] [address] Freight Weigher: Von Antonio MDPotassium [Moles/Vol]3.5 mmol/LLow3.7-5.3[facility] HospitalComment on above:Performed By: #### CP, CDP, LIP, HCG #### [facility] [address] [place] [address] [address] Freight Weigher: Von Antonio MDProtein [Mass/Vol]7.1 g/dLNormal6.4-8.3Mercy Seneca HospitalComment on above:Performed By: #### CP, CDP, LIP, HCG #### [facility] [address] [place] [address] Freight Weigher: Von Antonio MDSodium [Moles/Vol]132 mmol/GWcl517-603Datek Seneca HospitalComment on above:Performed By: #### CP, CDP, LIP, HCG #### [facility] [address] [place], [place] [id number] Freight Weigher: Von Antonio MDUrea nitrogen [Mass/Vol]13 mg/dLNormal6-20[facility] HospitalComment on above:Performed By: #### CP, CDP, LIP, HCG #### [facility] [address] [place], [place] [id number] Freight Weigher: JAYA Matsonomprehensive Metabolic Panelon 11-02-2021 Albumin [Mass/Vol]4.4 g/dL3.5 - 5.2 g/dLBON SECOURS MERCY HEALTHAlbumin/Globulin [Mass ratio]1.6 {ratio}1 - 2.5BON SECOURS MERCY HEALTHALP (Bld) [Catalytic activity/Vol]72 U/L35 - 104 U/LBON SECOURS MERCY HEALTHALT [Catalytic activity/Vol]11 U/L5 - 33 U/LBON [facility]RS MERCY HEALTHAnion gap [Moles/Vol]8 mmol/LLow9 - 17 mmol/LBON [facility]RS MERCY HEALTHAST [Catalytic activity/Vol]22 U/L NINF - 32 U/LBON [facility] HEALTHBilirubin [Mass/Vol]0.30 mg/dL0.3 - 1.2 mg/dLBON SECOURS MERCY HEALTHCalcium [Mass/Vol]9.3 mg/dL8.6 - 10.4 mg/dLBON SECOURS MERCY HEALTHChloride [Moles/Vol]99 mmol/L98 - 107 mmol/LBON SECOURS MERCY HEALTHCO2 [Moles/Vol]25 mmol/L20 - 31 mmol/LBON [facility] Creatinine [Mass/Vol]0.71 mg/dL0.5 - 0.9 mg/dLBON SECOURS MERCY HEALTHFree PSA/Total PSA [Mass fraction]7.1 g/dL6.4 - 8.3 g/dLBON SECOURS MERCY HEALTHGFR >6060 - PINF mL/minBON SECOURS MERCY HEALTHGFR Non->6060 - PINF mL/minBON SECOURS MERCY HEALTHGFR/1.73 sq M.predicted MDRD (S/P/Bld) [Vol rate/Area][facility] on above:Average GFR for 20-29 years old: 116 mL/min/1.73sq m Chronic Kidney Disease: <60 mL/min/1.73sq m Kidney failure: <15 mL/min/1.73sq m eGFR calculated using average adult body mass. Additional eGFR calculator available at: http://www.Spotivate/multiple_crcl_2012.htm Glucose [Mass/Vol]105 mg/pEXdar69 - 99 mg/dLBON [facility] [employer] HEALTHPotassium [Moles/Vol]3.5 mmol/LLow3.7 - 5.3 mmol/LBON [facility] HOSPITALBiom'Up HEALTHSodium [Moles/Vol]132 mmol/UOyd533 - 144 mmol/LBON [facility] HOSPITALUrea nitrogen (BldV) [Mass/Vol]13 mg/dL6 - 20 mg/dLBON [facility]OUND[facility] HOSPITALBiom'Up THE JEWISH HOSPITALHCG Qualitative, Serumon 82-98-2371aCG QualNegativeNEGATIVECARILION FRANKLIN MEMORIAL HOSPITALComment on above:Specimens with hCG levels near the threshold of the test (25 mIU/mL) may give a negative or indeterminate result. In such cases, another test should be performed with a new specimen in 48-72 hours. If early is suspected clinically in this setting, correlation with quantitative serum b-hCG level is suggested. [employer] has confirmed the use of plasma for this test. This has not been cleared or approved by the U.S. Food and Drug Administration. The FDA has determined that such clearance is not necessary. [facility] [employer] THE JEWISH HOSPITALHCG Screen, Bloodon [id number] Screen, BloodNegative NormalNEGMercy Seneca HospitalComment on above:Result Comment: Specimens with hCG levels near the threshold of the test (25 mIU/mL) may give a negative or indeterminate result. In such cases, another test should be performed with a new specimen in 48-72 hours. If early is suspected clinically in this setting, correlation with quantitative serum b-hCG level is suggested. [employer] has confirmed the use of plasma for this test. This has not been cleared or approved by the U.S. Food and Drug Administration. The FDA has determined that such clearance is not necessary.Performed By: #### CP, CDP, LIP, HCG #### [facility] [place], [place] [phone] Freight Weigher: Von Antonio MDLipaseon [id number] [Catalytic activity/Vol]12 U/HWiz32-96QuoxpLoma Linda Veterans Affairs Medical CenterComment on above: Performed By: #### CP, CDP, LIP, HCG #### [facility] [place], [place] [id number] Freight Weigher: Von Antonio MDLipase [Catalytic activity/Vol]12 U/LLow13 - 60 U/LBON [facility] Panel Informationon [id number] and review of laboratory resultsAbnoSturgis Regional HospitalSARS-CoV-2on [id number]-CoV-2 (COVID-19) RNA INGRID+probe Ql (Unsp spec) DetectedAbnosampson regional medical centerNOTWexner Medical CenterComment on above:Result Comment: Rapid NAAT: The specimen is POSITIVE for SARS-Cov-2, the novel coronavirus associated with COVID-19. This test has been authorized by the FDA under an Emergency Use Authorization (EUA) for use by authorized laboratories. The ID NOW COVID-19 assay is designed to detect the virus that causes COVID-19 in patients with signs and symptoms of infection who are suspected of COVID-19. An individual without symptoms of COVID-19 and who is not shedding SARS-CoV-2 virus would expect to have a negative (not detected) result in this assay. Fact sheet for Healthcare Providers: https://www.fda.gov/media/871423/download Fact sheet for Patients: https://www.fda.gov/media/194637/download Methodology: Isothermal Nucleic Acid Amplification Results reported to the appropriate Health DepartmentPerformed By: #### COVRB #### [place] [place], [place] [phone] Freight Weigher: VIOLETTE Matson19, Rapidon [id number]-CoV-2 (COVID- 19) RNA INGRID+probe Ql (Unsp spec)Not detectedNot [facility] on above: Rapid NAAT: The specimen is NEGATIVE for SARS-CoV-2, the novel coronavirus associated with COVID-19. The ID NOW COVID-19 assay is designed to detect the virus that causes COVID-19 in patients with signs and symptoms of infection who are suspected of COVID-19. An individual without symptoms of COVID-19 and who is not shedding SARS-CoV-2 virus would expect to have a negative (not detected) result in this assay. Negative results should be treated as presumptive and, if inconsistent with clinical signs and symptoms or necessary for patient management, should be tested with an alternative molecular assay. Negative results do not preclude SARS-CoV-2 infection and should not be used as the sole basis for patient management decisions. Fact sheet for Healthcare Providers: https://www.fda.gov/media/051005/download Fact sheet for Patients: https://www.fda.gov/media/273139/download Methodology: Isothermal Nucleic Acid Amplification Specimen Description.NASOPHARYNGEAL SWABBlack River Memorial Hospital, ,Urineon [id number] HCG ( test) Ql (U)NegativeNormalNEG [facility] on above:Result Comment: Specimens with hCG levels near the threshold of the test (25 mIU/mL) may give a negative or indeterminate result. In such cases, another test should be performed with a new specimen in 48-72 hours. If early is suspected clinically in this setting, correlation with quantitative serum b-hCG level is suggested.Performed By: #### UHCG #### [facility] [address] [place] [address] Freight Weigher: Justin Haley DOBeta HCG ( test) Ql (U)Negative [facility] on above:Specimens with hCG levels near the threshold of the test (25 mIU/mL) may give a negative or indeterminate result. In such cases, another test should be performed with a new specimen in 48-72 hours. If early is suspected clinically in this setting, correlation with quantitative serum b-hCG level is suggested. [facility] HospitalCqbbhuGWEJ-LuZ-9hj [id number]-CoV-2 (COVID-19) RNA INGRID+probe Ql (Unsp spec)Not detectedNormalNOTDETMercy Peoples HospitalComment on above:Result Comment: Rapid NAAT: The specimen is NEGATIVE for SARS-CoV-2, the novel coronavirus associated with COVID-19. The ID NOW COVID-19 assay is designed to detect the virus that causes COVID-19 in patients with signs and symptoms of infection who are suspected of COVID-19. An individual without symptoms of COVID-19 and who is not shedding SARS-CoV-2 virus would expect to have a negative (not detected) result in this assay. Negative results should be treated as presumptive and, if inconsistent with clinical signs and symptoms or necessary for patient management, should be tested with an alternative molecular assay. Negative results do not preclude SARS-CoV-2 infection and should not be used as the sole basis for patient management decisions. Fact sheet for Healthcare Providers: https://www.fda.gov/media/687690/download Fact sheet for Patients: https://www.fda.gov/media/616157/download Methodology: Isothermal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 (U)NegativeNegativeOhioHealthpH (U)5.0 [pH]OhioHealthProtein (U) [Mass/Vol]mg/dLAbnormalNegative mg/dLOhioHealth RBC Auto (Urine sed) [#/Area]>180HighOhioHealthSpecific gravity (U) [Rel density]1.028HighOhioHealthUrobilinogen (U) [Mass/Vol]2.0 mg/dLAbnormal<2.0 OhioHealthWBC Auto (Urine sed) [#/Area]>180HighOhioHealthMicroscopic examination is performed on all urinalysis samples and only positive findings are reported. The test for blood on the chemical analytic portion of urinalysis may also be positive due to hemoglobinuria and myoglobinuria and if red blood cells are present they are quantified by microscopic examination.OhioHealthUrine on [id number] ( test) Ql (U)NegativeNegativeOhioHealthInterpretation and review of laboratory resultsNormalOhioHealthACETAMINOPHENon 06-22-2019 Acetaminophen [Mass/Vol]<10.0Critically low10.1-30.0The [facility] HospitalComment on above:Performed By: #### CMP, SALYC, ACET #### [facility] [address] [place] [address] Jus KarenCBC AUTO DIFFon [id number] (Bld) [#/Vol]0.1 103/ulNormal 0.0-0.1The [facility] HospitalComment on above:Performed By: #### CBC #### [facility] [address] [place] [address] Jus KarenBasophils/100 WBC (Bld)1.0 %Normal0.2-2.0The [facility] Comment on above:Performed By: #### CBC #### [facility] [address] [place] [address] Jus KarenEosinophils (Bld) [#/Vol]0.5 103/ulNormal0.0-0.7The [facility] HospitalComment on above:Performed By: #### CBC #### [facility] [address] [place] [address] Jus KarenEosinophils/100 WBC (Bld)6.2 %Normal0.9-7.0The [facility] Comment on above:Performed By: #### CBC #### [facility] [address] [place], [place] [address] Jus KarenErythrocyte distribution width (RBC) [Ratio]13.2 %Fbfxjy73.0-15.0The [facility] HospitalComment on above:Performed By: #### CBC #### [facility] [address] [place] [address] Jus KarenHematocrit (Bld) [Volume fraction]40.9 %Ubttll92.0-48.0The [facility] HospitalComment on above:Performed By: #### CBC #### [facility] [address] [place] [address] Jus KarenHemoglobin (Bld) [Mass/Vol]14.2 g/lYJtlbot91.0-16.0The [facility] HospitalComment on above:Performed By: #### CBC #### [facility] [address] [place] [address] Jus KarenIG #0.02 10e3/ulNormal0.00-0.03The [facility] HospitalComment on above:Performed By: #### CBC #### [facility] [address] [place] [address] Jus KarenIG %0.3 %Normal0.0-0.5The [facility] HospitalComment on above: Performed By: #### CBC #### [facility] [address] [place] [address] Jus KarenLymphocytes (Bld) [#/Vol]1.8 103/ulNormal1.2-3.8The [facility] HospitalComment on above:Performed By: #### CBC #### [facility] [address] [place] [address] Jus KarenLymphocytes/100 WBC (Bld)25.1 %Nlntnn03.5-60.0The [facility] Comment on above:Performed By: #### CBC #### [facility] [address] [place] [address] Jus KarenMANUAL DIFF REQNONormalThe [facility] HospitalComment on above: Performed By: #### CBC #### [facility] [address] [place] [address] Jus KarenMCH (RBC) [Entitic mass]29.6 kkCpedlq48.7-34.0The [facility] Comment on above:Performed By: #### CBC #### [facility] [address] [place] [address] Jus KarenMC (RBC) [Mass/Vol]34.7 g/yZRmfvtl26.9-35.2The [facility] Comment on above:Performed By: #### CBC #### [facility] [address] [place] [address] Jus TalaveraenMCV (RBC) [Entitic vol]85.4 tFQdsmdr57.0-99.0The [facility] Comment on above:Performed By: #### CBC #### [facility] [address] [place] [address] Jus KarenMonocytes (Bld) [#/Vol]0.4 103/ulNormal0.3-0.8The [facility] Comment on above:Performed By: #### CBC #### [facility] [address] [place] [address] Jus KarenMonocytes/100 WBC (Bld)5.7 %Normal1.7-12.0[facility] Comment on above:Performed By: #### CBC #### [facility] [address] [place] [address] Jus KarenNeutrophils (Bld) [#/Vol]4.5 103/ulNormal1.4-6.5The [facility] HospitalComment on above:Performed By: #### CBC #### [facility] [address] [place] [address] Jus KarenNeutrophils/100 WBC (Bld)61.7 %Ynurav58.0-75.0The [facility] Comment on above:Performed By: #### CBC #### [facility] [address] [place] [address] Jus KarenPlatelet mean volume (Bld) [Entitic vol]9.4 fLCritically low9.5-13.5 The [facility] HospitalComment on above:Performed By: #### CBC #### [facility] [address] [place] [address] Jus KarenPlatelets (Bld) [#/Vol]351 103/rcSsizcj657-404Odd [facility] Comment on above:Performed By: #### CBC #### [facility] [address] [place] [address] Jus KarenRBC (Bld) [#/Vol]4.79 106/ulNormal4.20-5.40The [facility] Comment on above:Performed By: #### CBC #### [facility] [address] [place] [address] Jus KarenWBC (Bld) [#/Vol]7.2 103/ulNormal4.0-11.0[facility] Comment on above:Performed By: #### CBC #### [facility] [address] [place] [address] Jus KarenDRUG SCREEN RAPID (URINE)on [id number]QDnq Bellevue HospitalComment on above:Performed By: #### JEWEL MARSHALL, DRUGRPD #### [facility] [address] [place] [address] Jus KarenBARNegativeNormalNEGATIVESt. Rita'S HospitalComment on above: Performed By: #### JEWEL MARSHALL, DRUGRPD #### [facility] [address] [place] [address] Jus KarenBUPNegativeNormalNEGATIVESt. Rita'S HospitalComment on above: Performed By: #### JEWEL MARSHALL, DRUGRPD #### [facility] [address] [place] [address] Jus KarenBZONegativeNormalNEGATIVESt. Rita'S HospitalComment on above: Performed By: #### JEWEL MARSHALL, DRUGRPD #### [facility] [address] [place] [address] Jus KarenCOCPositiveNormalNEGATIVESt. Rita'S HospitalComment on above: Performed By: #### JEWEL MARSHALL DRUGRPD #### [facility] [address] [place] [address] Jus KarenCUT-OFFSSEE BELOWNoalThTrinity Health SystemComment on above:Result Comment: AMP (Amphetamine): 500ng/mL, BAR (Barbituates): 200 ng/mL, BZO (Benzodiazepines): 150 ng/mL, BUP (Buprenorphine): 10 ng/mL, KRSITYN (Cocaine): 150 ng/mL, mAMP (Methamphetamine): 500 ng/mL, MTD (Methadone): 200 ng/mL, OPI (Opiates): 100 ng/mL or 2000 ng/mL, OXY (Oxycodone): 100 ng/mL, PCP (Phencyclidine): 25 ng/mL, PPX (Propoxyphene): 300 ng/mL, THC (Cannabinoids): 50 ng/mL, TCA (Trycyclic Antidepressants): 300 ng/mLPerformed By: #### JEWEL MARSHALL DRUGRPD #### [facility] [address] [place] [address] KarenDRUG CUT HEADERDRUG CLASS TEST SYSTEM CUT-OFF CONCENTRATIONS ARE FOLLOWS:NormalThe [facility] HospitalComment on above:Performed By: #### JEWEL MARSHALL DRUGRPD #### [facility] [address] [place] [address] Jus KarenmAMPNegativeNoalNEGATIVESt. Rita'S HospitalComment on above: Performed By: #### JEWEL MARSHALL DRUGRPD #### [facility] [address] [place] [address] Jus KarenMTDPositiveNormalNEGATIVESt. Rita'S HospitalComment on above: Performed By: #### JEWEL MARSHALL DRUGRPD #### [facility] [address] [place] [address] Jus KarenOPIPositiveNormalNEGATIVESt. Rita'S HospitalCombeaumont hospital on above: Performed By: #### JEWEL MARSHALL DRUGRPD #### [facility] [address] [place] [address] Jus KarenOXYNegativeNormalNEGATIVESt. Rita'S HospitalComment on above: Performed By: #### JOSIE MARSHALLICRO, DRUGRPD #### [facility] [address] [place] [address] Jus KarenPCPNegativeNormalNEGATIVESt. Rita'S HospitalCombeaumont hospital on above: Performed By: #### JOSIE MARSHALLICRO, DRUGRPD #### [facility] [address] [place] [address] Jus KarenPPXNegativeNormalNEGATIVESt. Rita'S HospitalCombeaumont hospital on above: Performed By: #### JOSIE MARSHALLICHOLGER, DRUGRPD #### [facility] [address] [place] [address] Jus KarenTCANegativeNormalNEGATIVESt. Rita'S HospitalCombeaumont hospital on above: Performed By: #### JEWEL MARSHALL, DRUGRPD #### [facility] [address] [place] [address] Jus KarenTHCNegativeNormalNEGATIVESt. Rita'S HospitalCombeaumont hospital on above: Performed By: #### JEWEL MARSHALL, DRUGRPD #### [facility] [address] [place] [address] Jus KarenER URINE PROFILEon [id number] [Mass/Vol]NegativeNormal NEGATIVESt. Rita'S HospitalCombeaumont hospital on above:Performed By: #### JEWEL MARSHALL, DRUGRPD #### [facility] [address] [place] [address] Jus KarenBLOODTRACE-INTACTNormalNEGATIVESt. Rita'S HospitalComment on above:Performed By: #### ROLANDO UMICRO, DRUGRPD #### [facility] [address] [place] [address] Jus KarenClarity (U)CLEARNormalThe [facility] HospitalCombea[facility] hospital on above: Performed By: #### ROLANDO UMICRO, DRUGRPD #### [facility] [address] [place] [address] Jus KarenColor (U)YELLOWNormalYELLOWSt. Rita'S HospitalComment on above: Performed By: #### JEWEL MARSHALL, DRUGRPD #### [facility] [address] [place] [address] Jus KarenERUAHDA micrscopic examination will be performed if indicated.Normal The [facility] HospitalComment on above:Performed By: #### ROLANDO UMICHOLGER, DRUGRPD #### [facility] [address] [place] [address] Jus KarenGlucose [Mass/Vol]NegativeNormalNEGATIVESt. Rita'S HospitalComment on above:Performed By: #### JOSIE MARSHALLICHOLGER, DRUGRPD #### [facility] [address] [place] [address] Jus KarenKetones Ql (U)NegativeNormalNEGATIVESt. Rita'S HospitalComment on above:Performed By: #### JEWEL MARSHALL, DRUGRPD #### [facility] [address] [place] [address] Jus KarenNitrite Ql (U)NegativeNormalNEGATIVESt. Rita'S HospitalComment on above:Performed By: #### JEWEL MARSHALL, DRUGRPD #### [facility] [address] [place] [address] Jus KarenpH (Bld)7.8Rqhmnp9-5Fsi [facility] HospitalComment on above:Performed By: #### JEWEL MARSHALL, DRUGRPD #### [facility] [address] [place] [address] Jus KarenProtein (U) [Mass/Vol]NegativeNormalThTrinity Health SystemComment on above:Performed By: #### JOSIE MARSHALLICHOLGER, DRUGRPD #### [facility] [address] [place] [address] Jus KarenSPEC GRAVITY1.006Fhrxci8.005-<=1.025St. Rita'S HospitalComment on above:Performed By: #### LINAR UMICRO, DRUGRPD #### [facility] [address] [place] [address] Jus KarenUR MICRO INDINDICATEDNormMercy Health Defiance Hospitale Wellston HospitalComment on above: Performed By: #### JEWEL MARSHALL DRUGRPD #### [facility] [address] [place] [address] Jus KarenUrobilinogen Qn (U)1.0 EU/dlNoSamaritan North Health CenterComment on above:Performed By: #### JEWEL MARSHALL DRUGRPD #### [facility] [address] [place] [address] Jus KarenWBC (Bld) [#/Vol]NegativeNormalNEGATIVESt. Rita'S HospitalComment on above:Performed By: #### JEWEL MARSHALL DRUGRPD #### [facility] [address] [place] [address] Jus KarenETHANOL (BLD ALC)on 88-52-9333Jppleay [Mass/Vol]mg/dLUniversity Hospitals Ahuja Medical CenterComment on above:Performed By: #### ETH #### [facility] [address] [place] [address] Jus KarenEthanol [Mass/Vol]NOTE: 80 mg/dl is the legal limit for a blood alcohol levelUniversity Hospitals Ahuja Medical CenterComment on above:Performed By: #### ETH #### [facility] [address] [place] [address] Jus KarenPREG HCG QUALon 37-15-6087IXLMKXTIN, QUALNegativeNormalNEGATIVESt. Rita'S HospitalComment on above:Performed By: #### PREG #### [facility] [address] [place] [address] Jus KarenPROF 14(COMP METB)on 25-07-3343Asxjtwg [Mass/Vol]3.7 g/dLNormal 3.5-5.0The [facility] HospitalComment on above:Performed By: #### PRANAV MCLAUGHLIN, ACET #### [facility] [address] [place] [address] Jus KarenAlbumin/Globulin [Mass ratio]0.9 {ratio}NormalThe [facility] Comment on above:Performed By: #### CMP, SALYC, ACET #### [facility] [address] [address] Jus KarenALP [Catalytic activity/Vol]67 U/LEbeyen93-472Dxm [facility] Comment on above:Performed By: #### CMP, SALYC, ACET #### [facility] [address] [address] Jus KarenALT [Catalytic activity/Vol]25 U/LNormal9-52The [facility] Comment on above:Performed By: #### CMP, SALYC, ACET #### [facility] [address] [address] Jus KarenAnion gap [Moles/Vol]12.7 mmol/LNormalThe [facility] HospitalComment on above:Performed By: #### CMP, SALYC, ACET #### [facility] [address] [address] Jus KarenAST [Catalytic activity/Vol]22 U/ZNgjlmc90-87Lpo [facility] Comment on above:Performed By: #### CMP, SALYC, ACET #### [facility] [address] [address] Jus KarenBilirubin Ql (U)0.3 mg/dLNormal0.2-1.3The [facility] HospitalComment on above:Performed By: #### CMP, SALYC, ACET #### [facility] [address] [address] Jus KarenCalcium [Mass/Vol]9.2 mg/dLNormal8.4-10.2[facility] Comment on above:Performed By: #### CMP, SALYC, ACET #### [facility] [address] [address] Jus KarenChloride [Moles/Vol]103 mmol/VBdhavt55-438Bec [facility] Comment on above:Performed By: #### CMP, SALYC, ACET #### [facility] [address] [address] Ujs KarenCO2 [Moles/Vol]29.2 mmol/BNzygej00.0-30.0The [facility] Comment on above:Performed By: #### CMP, SALYC, ACET #### [facility] [address] [place] [address] Jus KarenCreatinine [Mass/Vol]0.81 mg/dLNormal0.52-1.04[facility] Comment on above:Performed By: #### CMP, SALYC, ACET #### [facility] [address] [place] [address] Jus KarenEGFR-AF ENGLISH>60Normal>=60The [facility] HospitalComment on above: Performed By: #### CMP, SALYC, ACET #### [facility] [address] [place] [address] Jus KarenEGFR-NON AF ENGLISH>60Normal>=60The [facility] HospitalComment on above:Performed By: #### CMP, SALYC, ACET #### [facility] [address] [place] [address] Jus KarenGlobulin (S) [Mass/Vol]4.0 g/dLNormalThe [facility] HospitalComment on above:Performed By: #### CMP, SALYC, ACET #### [facility] [address] [place] [address] Jus KarenGlucose [Mass/Vol]116 mg/dLCritically xftw41-872WfeSt. Rita'S HospitalComment on above:Performed By: #### CMP, SALYC, ACET #### [facility] [address] [place] [address] Jus KarenPotassium [Moles/Vol]3.9 mmol/LNormal3.4-5.0The [facility] Comment on above:Performed By: #### CMP, SALYC, ACET #### [facility] [address] [place] [address] Jus KarenProtein [Mass/Vol]7.7 g/dLNormal6.1-8.2St. Rita'S HospitalComment on above:Performed By: #### CMP, SALYC, ACET #### [facility] [address] [place] [address] Jus KarenSodium [Moles/Vol]141 mmol/ZHejtta470-105Wqo [facility] Comment on above:Performed By: #### PRANAV MCLAUGHLIN ACET #### [facility] [address] [place] [address] Jus KarenUrea nitrogen [Mass/Vol]9.0 mg/dLNormal7.0-17.0The [facility] Comment on above:Performed By: #### PRANAV MCLAUGHLIN ACET #### [facility] [address] [place] [address] Jus KarenUrea nitrogen/Creatinine [Mass ratio]11.1 mg/mgUniversity Hospitals Ahuja Medical CenterComment on above:Performed By: #### PRANAV MCLAUGHLIN ACET #### [facility] [address] [place] [address] Jus KarenSALICYLATEon 77-27-5306UNHWARJLFP<1.0Normal<=20.0The [facility] HospitalComment on above:Performed By: #### PRANAV MCLAUGHLIN ACET #### [facility] [address] [place] [address] Jus KarenURINE MICROSCOPIC ONLYon 83-54-4247Phnqcfmt LM.HPF (Urine sed) [#/Area]TRACENormalNONE SEENSt. Rita'S HospitalCombeaumont hospital on above:Performed By: #### JEWEL MARSHALL DRUGRPD #### [facility] [address] [place] [address] Jus KarenCASTNONE SEENNormalNONE SEENSt. Rita'S HospitalCombeaumont hospital on above: Performed By: #### JEWEL MARSHALL DRUGRPD #### [facility] [address] [place] [address] Jus KarenCrystals LM Nom (Urine sed)NONE SEENNormalNONE SEENSt. Rita'S HospitalCombeaumont hospital on above:Performed By: #### JEWEL MARSHALL DRUGRPD #### [facility] [address] [place] [address] Jus KarenCULTURENOT INDICATEDNoSamaritan North Health CenterComment on above: Performed By: #### JEWEL MARSHALL DRUGRPD #### [facility] [address] [place] [address] Jus KarenEpithelial cells LM.HPF (Urine sed) [#/Area]Paulding County HospitalComment on above:Performed By: #### JEWEL MARSHALL DRUGRPD #### [facility] [address] [place] [address] Jus KarenMUCOUSNONE SEENSelect Medical Cleveland Clinic Rehabilitation Hospital, Edwin ShawComment on above: Performed By: #### JEWEL MARSHALL DRUGRPD #### [facility] [address] [place] [address] Ujs KarenRBC (U) [#/Vol]4-4Erqznu2-7RjcSt. Rita'S HospitalComment on above: Performed By: #### JEWEL MARSHALL DRUGRPD #### [facility] [address] [place] [address] Jus KarenWBC (Bld) [#/Vol]NONE [facility] Comment on above:Performed By: #### JEWEL MARSHALL DRUGRPD #### [facility] [address] [place] [address] Jus KarenHEPATITIS PROFILEon [id number] A VIRUS ANTIBODY IGMNegative NormalNegKettering Health DaytonComment on above:Performed By: #### HEP ####[facility] #[id number] [place], [place] [address]VUXEBYMRC B SURFACE ANTIGENNegativeNormalNegativeParkwood HospitalCombeaumont hospital on above:Result Comment: Based on the non-reactive HBsAg screen, the HBsAg Confirmationtest is not indicatedand therefore not performed.INTERPRETIVE INFORMATION: Hepatitis B Surface AgThis assay should not be used for blood donor screening,associated re- entry protocols, or for screening Human Cells,Tissuesand Cellular and Tissue- Based Products (HCT/P).Performed By: #### HEP ####[facility] #[id number] [place], [place] [address]VAKNUEHEL C AB INDEX>11.00[facility] Comment on above:Result Comment: Performed by [facility],[address] [place] [address] jtl.[employer] Lynne MD, Lab. Director Performed By: #### HEP ####[facility] #[id number] [place] [address] RAPID PLASMA REAGINon [id number] PLASMA REAGINNONREACTIVENoalNONREACTIVE [facility] HospitalComment on above:Performed By: #### RPR ####[address] [address]SIMCWIKgd 94-09-7336Enbrvpf mass concmg/dLNoBarnesville HospitalComment on above:Result Comment: < 3 mg/dl NONE TKUXPOGM83-191 mg/dl MAY SHOW SIGNS OF HDEKIIIHFAGE585-001 mg/dl C OMATOSE LEVELPerformed By: #### MN, ALC ####[address] [address]DQJ with AUTO DIFFon 39-56-6355PFY4 %0.50 %Normal0-2AKaiser Foundation HospitalComment on above:Performed By: #### CBC ####[address] [address]Fnahhrfvq Auto #/vol (Bld)0.0 10*3/uLNormal0-0.1APremier Health Upper Valley Medical Center HospitalComment on above:Performed By: #### CBC ####[address] [address]Rjaljruemlj Auto #/vol (Bld)0.4 10*3/uLNormal0.0-1.80AllMount St. Mary HospitalComment on above: Performed By: #### CBC ####[address] [address] Eosinophils/100 WBC Auto (Bld)5.3 %Normal0-8AKaiser Foundation HospitalComment on above:Performed By: #### CBC ####[address] [address]SFHM #4.8 K/uLNormal2.2-9.1AKaiser Foundation HospitalComment on above: Performed By: #### CBC ####[address] [address] GRAN %62.8 %Jmrxfa09-92JwuiqehwParkwood HospitalComment on above:Performed By: #### CBC ####[address] [address]Dcmtoyfjlk Auto Volume Fraction (Bld)37.7 %Kujqrr21.0-47.0[facility] Comment on above:Performed By: #### CBC ####[facility] [address] [address]Fdkxstrxvt mass conc (Bld)12.8 g/mEQrafmr61.0-16.0[facility] HospitalComment on above:Performed By: #### CBC ####[address] [address]Ektdcyxhfpl Auto #/vol (Bld)1.9 10*3/uLNormal1.0-4.0[facility] HospitalComment on above:Performed By: #### CBC ####[address] [address] Lymphocytes/100 WBC Auto (Bld)24.4 %Momqij91-85MxbgrnlzParkwood Hospital Comment on above:Performed By: #### CBC ####[address] [address]WIT Auto Entitic mass (RBC)34.0 g/aOZqqftq17.0-36.0[facility] HospitalComment on above:Performed By: #### CBC ####[address] [address]RAP Auto Entitic volume (RBC)83.2 fL Kquhtx61-96QrdrdstsMount St. Mary HospitalComment on above:Performed By: #### CBC ####[address] [address]DNRP CORPUSCULAR HGB 28.3 cpAbdjgn46.0-32.0[facility] HospitalComment on above:Performed By: #### CBC ####[address] [address]Qbkcqgzed Auto #/vol (Bld)0.5 10*3/uLNormal0.1-1.7AllMount St. Mary HospitalComment on above: Performed By: #### CBC ####[place] [address] [address] Monocytes/100 WBC Auto (Bld)7.0 %Normal3-9AKaiser Foundation HospitalComment on above:Performed By: #### CBC ####[facility] [address], [place] [address]Zxotgqnp mean volume Auto Entitic volume (Bld)7.4 fLNormal6.6-10.5AKaiser Foundation HospitalComment on above:Performed By: #### CBC ####[facility] [address], [place] [address]Xispjgfqi Auto #/vol (Bld)284 10*3/bDApjtve901-568YryjkosgParkwood HospitalComment on above:Performed By: #### CBC ####[facility] [address], [place] [address]VZV Auto #/vol (Bld)4.53 10*6/uLNormal4.20-5.50[facility] HospitalComment on above: Performed By: #### CBC ####[place] [address] [place] [address] RED CELL DISTRI WIDTH14.4 %Sjwxat83.0-15.5AKaiser Foundation HospitalComment on above:Performed By: #### CBC ####[address], [place] [address]FBH Auto #/vol (Bld)7.7 10*3/uLNormal4.0-11.0[facility] Comment on above:Performed By: #### CBC ####[facility] [address], [place] [address]OKICVCVOAICLL METABOLIC PANELon 60-04-3482Ujzwapm mass conc 3.5 g/dLNormal3.0-5.0W[facility]-Patterson Medical Centerment on above:Performed By: #### MN, ALC ####[facility] [address] [place] [address] Albumin/Globulin mass ratio1.0 {ratio}Low1.1-1.8AKaiser Foundation Hospital Comment on above:Performed By: #### MN, ALC ####[facility] [address], [place] [address]BTO enzyme act/vol60 U/YSexjjt70-214JtyspklkParkwood HospitalComment on above:Performed By: #### MN, ALC ####[facility] [address], [place] [address]RYT enzyme act/vol16 U/OZyekqo08-73UgqiuohmParkwood HospitalComment on above:Performed By: #### MN, ALC ####[place] [address], [place] [address]Neubu gap 3 molar conc10.4 mmol/LLow 11-23Park[facility] HospitalComment on above:Performed By: #### MN, ALC ####[facility] [address], [place] [address]Ykivjmpqd mass conc0.3 mg/dLNormal0-1.0[facility] HospitalComment on above:Performed By: #### MN, ALC ####[facility] [address], [place] [address]Tegktlw mass conc8.7 mg/dLNormal8.5-10.1AllMount St. Mary HospitalComment on above:Performed By: #### MN, ALC ####[facility] [address] [place] [address] Chloride molar knyt689 mmol/UFqjvhl73-139PmmybbcyParkwood HospitalComment on above:Performed By: #### MN, ALC ####[facility] [address], [place] [address]FB7 molar conc31.0 mmol/EEizkgg15-96JtuprvdvParkwood HospitalComment on above:Performed By: #### MN, ALC ####[facility] [address], [place] [address]Xpgeejjdln mass conc0.80 mg/dLNormal0.4-1.2 [facility] Medical Centerment on above:Performed By: #### MN, ALC ####[facility] [address], [place] [address]TQV AM> 60.0 [facility] HospitalComment on above:Result Comment: THE NORMAL LEVEL OF GFR VARIES ACCORDING TO AGE, SEX, ANDBODY SIZE. A GFR LEVEL OF LESS THAN 60 ML/MIN REPRESENTSLOSS OF THE ADULT LEVEL OF NORMAL KIDNEY FUNCTION. Performed By: #### MN, ALC ####[facility] [address], [place] [address]HHR/1.73 sq M.predicted MDRD vol rate/areamL/min/{1.73_m2}[facility] HospitalComment on above:Performed By: #### MN, ALC ####[facility] [address], [place] [address]Pnvzglke Calculated mass conc (S)3.6 g/dLNormal2.5-4.6APremier Health Upper Valley Medical Center HospitalComment on above:Performed By: #### MN, ALC ####[facility] [address] [facility], [place] [address]Vfzejyr mass mgsp290 mg/jOIuaw52-209Zqccrmdi Community HospitalComment on above:Performed By: #### MN, ALC ####[place] [address], [place] [address]Ddxpehjbn molar conc3.8 mmol/LNormal3.6-5.2APremier Health Upper Valley Medical Center HospitalComment on above: Performed By: #### MN, ALC ####[facility] [address] [facility], [place] [address]Abswwhg mass conc7.1 g/dLNormal6.0-8.3APremier Health Upper Valley Medical Center HospitalComment on above:Performed By: #### MN, ALC ####[facility] [address], [place] [address]LGVB/AST12 U/LNormal9-34APremier Health Upper Valley Medical Center HospitalComment on above:Performed By: #### MN, ALC ####[facility] [address], [place] [address]Xqfhhl molar fhqc570 mmol/WUegtaz976-445Poaizqnt Community HospitalComment on above:Performed By: #### MN, ALC ####[facility] [address] [facility], [place] [address]Qeae nitrogen mass conc16.0 mg/dLNormal7-18 [facility] HospitalComment on above:Performed By: #### MN, ALC ####[facility] [address], [place] [address]ES.PDOCon 12-17-2017 ED.DIANNE FLORIAN Female [id number] provider: SARA SHEA [id number],Erik 1990 27 DOS: 12/17/17Hx/Exam- History of Present IllnessChief Complaint: DETOX MEDICAL CLEARANCELocation: genSymptom Duration: monthsSymptom Duration: Month(s)Intensity: moderateEpisode Frequency: intermittantSymptoms Improve with: pt here for help with Heroin abuse/addiction, deniesalcohol abuseSymptoms Worsewith: pt last used few hours ago, no n,v,d or fever no rash- Review of SystemsAll Other Systems: Pertinent Positives in HPI, All Other Systems NegativeConstitutional: Malaise. Denies: FeverRespiratory: Denies: Cough, Shortness of BreathCardiovascular: Denies: Chest PainGastrointestinal: Denies: Nausea, Vomiting, Abdominal Pain, DiarrheaSkin: Denies: RashNeurological: Denies: Headache- Physical ExamGeneral Appearance: awake, alert, no apparent distressEyes: conjunctivae clearHead, Ears, Nose, and Throat: mucous membranes moistNeck: suppleRespiratory: lungs clear, no wheezes/rhonchi/rales, no respiratory distressCardiovascular: regular rate, rhythmAbdomen/GI: non tender, softExtremity: normalrange of motionSkin Exam: warm/dry- Source of HistorySource of History: Nursing Notes/Vital Signs/Triage Reviewed and AgreeNote(s)- Physician NotesAdditional Notes:12/17/17 13:08pt medically cleared for Detox. screening workup unremarkableEKG- EKGEKG Interpretation: Not ApplicableDischarge Screen- DischargeDischarge Problem: Desire for detoxificationDisposition: TRANSFER ACUTE CARE HOSPITALCondition: GoodReferrals:Russell Reyna [Family Provider] -Call,On [Primary Care Provider] - Dictated By:Dr. Jagjit GreshamDictated Date/Time:12/17/17 1051Electronically Signed Date/Time: 12/17/17 1310[facility] HospitalHC URINEon [id number].beta subunit ( test) Ql (U)NegativeDetwiler Memorial HospitalComment on above:Performed By: #### UDRGS, HCGUR ####[address] [address]Kxvie Comment: URINE DRUG SCREENS ARE FOR MEDICAL PURPOSES ONLY.THIS TEST PROVIDES ONLY A PRELIMINARY TEST RESULT. A MORESPECIFIC ALTERNATE CHEMICAL METHOD MUST BE USED IN ORDER TOOBTAIN A CONFIRMED ANALYTICAL RESULT.CONFIRMATION PERFORMED UPON REQUESTURINE DRUG SCREENS ARE FOR MEDICAL PURPOSES ONLY.THIS TEST PROVIDES ONLY A PRELIMINARY TEST RESULT. A MORESPECIFIC ALTERNATE CHEMICAL METHOD MUST BE USED IN ORDER TOOBTAIN A CONFIRMED ANALYTICAL RESULT.CONFIRMATION PERFORMED UPON REQUESTCannabinoids ........................... 50Opiates ................................ 300Cocaine ................................ 150Amphetamine ............................ 500Phencyclidine .......................... 25Barbiturates ........................... 200Methadone .............................. 300Benzodiazepines ........................ 200INTERPRETIVE INFOMRATION:This is a screening test only. False positive and falsenegative results can occur.The absence of expected drug(s) and/or drug metabolite(s)may indicate non-compliance, inappropriate timing ofspecimen absorption, diluted/adulterated urine, orlimitations of testing. The concentration at which thescreening test can detect a drug or metabolite varies withina drug class. The concentration value must be greater thanor equal to the cutoffto be reported as positive.The following opiods are not detected in this test:fentanyl,buprenorphine, meperidine, tramadol, andtapentadol. Individual opioid testing is available and canbe ordered separately.URINE DRUG SCREENon [id number]fmZwpsthzq Community HospitalComment on above: Order Comment: What Is Urine Source? Clean Catch Mid StreamWhat Is Urine Source? Clean Catch Mid StreamPerformed By: #### UDRGS, HCGUR ####[address] [address]Qdznu Comment: URINE DRUG SCREENS ARE FOR MEDICAL PURPOSES ONLY.THIS TEST PROVIDES ONLY A PRELIMINARY TEST RESULT. A MORESPECIFIC ALTERNATE CHEMICAL METHOD MUST BE USED IN ORDER TOOBTAIN A CONFIRMED ANALYTICAL RESULT.CONFIRMATION PERFORMED UPON REQUESTURINE DRUG SCREENS ARE FOR MEDICAL PURPOSES ONLY.THIS TEST PROVIDES ONLY A PRELIMINARY TEST RESULT. A MORESPECIFIC ALTERNATE CHEMICAL METHOD MUST BE USED IN ORDER TOOBTAIN A CONFIRMED ANALYTICAL RESULT.CONFIRMATION PERFORMED UPON REQUESTCannabinoids ........................... 50Opiates ................................ 300Cocaine ................................ 150Amphetamine ............................ 500Phencyclidine .......................... 25Barbiturates ........................... 200Methadone .............................. 300Benzodiazepines ........................ 200INTERPRETIVE INFOMRATION:This is a screening test only. False positive and falsenegative results can occur.The absence of expected drug(s) and/or drug metabolite(s)may indicate non-compliance, inappropriate timing ofspecimen absorption, diluted/adulterated urine, orlimitations of testing. The concentration at which thescreening test can detect a drug or metabolite varies withina drug class. The concentration value must be greater thanor equal to the cutoffto be reported as positive.The following opiods are not detected in this test:fentanyl,buprenorphine, meperidine, tramadol, andtapentadol. Individual opioid testing is available and canbe ordered separately.BARBITURATESNegative [facility] HospitalComment on above:Order Comment: What Is Urine Source? Clean Catch Mid StreamWhat Is Urine Source? Clean Catch Mid Stream Performed By: #### [facility] ####[address] [address]Yrxby Comment: URINE DRUG SCREENS ARE FOR MEDICAL PURPOSES ONLY.THIS TEST PROVIDES ONLY A PRELIMINARY TEST RESULT. A MORESPECIFIC ALTERNATE CHEMICAL METHOD MUST BE USED IN ORDER TOOBTAIN A CONFIRMED ANALYTICAL RESULT.CONFIRMATION PERFORMED UPON REQUESTURINE DRUG SCREENS ARE FOR MEDICAL PURPOSES ONLY.THIS TEST PROVIDES ONLY A PRELIMINARY TEST RESULT. A MORESPECIFIC ALTERNATE CHEMICAL METHOD MUST BE USED IN ORDER TOOBTAIN A CONFIRMED ANALYTICAL RESULT.CONFIRMATION PERFORMED UPON REQUESTCannabinoids ........................... 50Opiates ................................ 300Cocaine ................................ 150Amphetamine ............................ 500Phencyclidine .......................... 25Barbiturates ........................... 200Methadone .............................. 300Benzodiazepines ........................ 200INTERPRETIVE INFOMRATION:This is a screening test only. False positive and falsenegative results can occur.The absence of expected drug(s) and/or drug metabolite(s)may indicate non-compliance, inappropriate timing ofspecimen absorption, diluted/adulterated urine, orlimitations of testing. The concentration at which thescreening test can detect a drug or metab olite varies withina drug class. The concentration value must be greater thanor equal to the cutoffto be reported as positive.The following opiods are not detected in this test:fentanyl,buprenorphine, meperidine, tramadol, andtapentadol. Individual opioid testing is available and canbe ordered sepa rately.BENZODIAZEPINESNegativeNoHenry County Hospital on above: Order Comment: What Is Urine Source? Clean Catch Mid StreamWhat Is Urine Source? Clean Catch Mid StreamPerformed By: #### UDRGS, HCGUR ####[address] [address]Wqnep Comment: URINE DRUG SCREENS ARE FOR MEDICAL PURPOSES ONLY.THIS TEST PROVIDES ONLY A PRELIMINARY TEST RESULT. A MORESPECIFIC ALTERNATE CHEMICAL METHOD MUST BE USED IN ORDER TOOBTAIN A CONFIRMED ANALYTICAL RESULT.CONFIRMATION PERFORMED UPON REQUESTURINE DRUG SCREENS ARE FOR MEDICAL PURPOSES ONLY.THIS TEST PROVIDES ONLY A PRELIMINARY TEST RESULT. A MORESPECIFIC ALTERNATE CHEMICAL METHOD MUST BE USED IN ORDER TOOBTAIN A CONFIRMED ANALYTICAL RESULT.CONFIRMATION PERFORMED UPON REQUESTCannabinoids ........................... 50Opiates ................................ 300Cocaine ................................ 150Amphetamine ............................ 500Phencyclidine .......................... 25Barbiturates ........................... 200Methadone .............................. 300Benzodiazepines ........................ 200INTERPRETIVE INFOMRATION:This is a screening test only. False positive and falsenegative results can occur.The absence of expected drug(s) and/or drug metabolite(s)may indicate non-compliance, inappropriate timing ofspecimen absorption, diluted/adulterated urine, orlimitations of testing. The concentration at which thescreening test can detect a drug or metabolite varies withina drug class. The concentration value must be greater thanor equal to the cutoffto be reported as positive.The following opiods are not detected in this test:fentanyl,buprenorphine, meperidine, tramadol, andtapentadol. Individual opioid testing is available and canbe ordered separately.COCAINEPositiveAbnormal Parkwood HospitalComment on above:Order Comment: What Is Urine Source? Clean Catch Mid StreamWhat Is Urine Source? Clean Catch Mid StreamPerformed By: #### UDRGS, HCGUR ####[address] [address]Cmakz Comment: URINE DRUG SCREENS ARE FOR MEDICAL PURPOSES ONLY.THIS TEST PROVIDES ONLY A PRELIMINARY TEST RESULT. A MORESPECIFIC ALTERNATE CHEMICAL METHOD MUST BE USED IN ORDER TOOBTAIN A CONFIRMED ANALYTICAL RESULT.CONFIRMATION PERFORMED UPON REQUESTURINE DRUG SCREENS ARE FOR MEDICAL PURPOSES ONLY.THIS TEST PROVIDES ONLY A PRELIMINARY TEST RESULT. A MORESPECIFIC ALTERNATE CHEMICAL METHOD MUST BE USED IN ORDER TOOBTAIN A CONFIRMED ANALYTICAL RESULT.CONFIRMATION PERFORMED UPON REQUESTCannabinoids ........................... 50Opiates ................................ 300Cocaine ................................ 150Amphetamine ............................ 500Phencyclidine .......................... 25Barbiturates ........................... 200Methadone .............................. 300Benzodiazepines ........................ 200INTERPRETIVE INFOMRATION:This is a screening test only. False positive and falsenegative results can occur.The absence of expected drug(s) and/or drug metabolite(s)may indicate non-compliance, inappropriate timing ofspecimen absorption, diluted/adulterated urine, orlimitations of testing. The concentration at which thescreening test can detect a drug or metab olite varies withina drug class. The concentration value must be greater thanor equal to the cutoffto be reported as positive.The following opiods are not detected in this test:fentanyl,buprenorphine, meperidine, tramadol, andtapentadol. Individual opioid testing is available and canviri ordered sepjuan mcneillly.METHADONENegativeNormSt. Anthony's Hospital on above:Order Comment: What Is Urine Source? Clean Catch Mid StreamWhat Is Urine Source? Clean Catch Mid StreamPerformed By: #### UDRGS, HCGUR ####[address] [address]Lrlvc Comment: URINE DRUG SCREENS ARE FOR MEDICAL PURPOSES ONLY.THIS TEST PROVIDES ONLY A PRELIMINARY TEST RESULT. A MORESPECIFIC ALTERNATE CHEMICAL METHOD MUST BE USED IN ORDER TOOBTAIN A CONFIRMED ANALYTICAL RESULT.CONFIRMATION PERFORMED UPON REQUESTURINE DRUG SCREENS ARE FOR MEDICAL PURPOSES ONLY.THIS TEST PROVIDES ONLY A PRELIMINARY TEST RESULT. A MORESPECIFIC ALTERNATE CHEMICAL METHOD MUST BE USED IN ORDER TOOBTAIN A CONFIRMED ANALYTICAL RESULT.CONFIRMATION PERFORMED UPON REQUESTCannabinoids ........................... 50Opiates ................................ 300Cocaine ................................ 150Amphetamine ............................ 500Phencyclidine .......................... 25Barbiturates ........................... 200Methadone .............................. 300Benzodiazepines ........................ 200INTERPRETIVE INFOMRATION:This is a screening test only. False positive and falsenegative results can occur.The absence of expected drug(s) and/or drug metabolite(s)may indicate non-compliance, inappropriate timing ofspecimen absorption, diluted/adulterated urine, orlimitations of testing. The concentration at which thescreening test can detect a drug or metabolite varies withina drug class. The concentration value must be greater thanor equal to the cutoffto be reported as positive.The following opiods are not detected in this test:fentanyl,buprenorphine, meperidine, tramadol, andtapentadol. Individual opioid testing is available and canbe ordered separately.OPIATESPositiveAbnormal Parkwood HospitalComment on above:Order Comment: What Is Urine Source? Clean Catch Mid StreamWhat Is Urine Source? Clean Catch Mid StreamPerformed By: #### UDRGS, HCGUR ####[address] [address]Gpbuq Comment: URINE DRUG SCREENS ARE FOR MEDICAL PURPOSES ONLY.THIS TEST PROVIDES ONLY A PRELIMINARY TEST RESULT. A MORESPECIFIC ALTERNATE CHEMICAL METHOD MUST BE USED IN ORDER TOOBTAIN A CONFIRMED ANALYTICAL RESULT.CONFIRMATION PERFORMED UPON REQUESTURINE DRUG SCREENS ARE FOR MEDICAL PURPOSES ONLY.THIS TEST PROVIDES ONLY A PRELIMINARY TEST RESULT. A MORESPECIFIC ALTERNATE CHEMICAL METHOD MUST BE USED IN ORDER TOOBTAIN A CONFIRMED ANALYTICAL RESULT.CONFIRMATION PERFORMED UPON REQUESTCannabinoids ........................... 50Opiates ................................ 300Cocaine ................................ 150Amphetamine ............................ 500Phencyclidine .......................... 25Barbiturates ........................... 200Methadone .............................. 300Benzodiazepines ........................ 200INTERPRETIVE INFOMRATION:This is a screening test only. False positive and falsenegative results can occur.The absence of expected drug(s) and/or drug metabolite(s)may indicate non-compliance, inappropriate timing ofspecimen absorption, diluted/adulterated urine, orlimitations of testing. The concentration at which thescreening test can detect a drug or metab olite varies withina drug class. The concentration value must be greater thanor equal to the cutoffto be reported as positive.The following opiods are not detected in this test:fentanyl,buprenorphine, meperidine, tramadol, andtapentadol. Individual opioid testing is available and canbe ordered sepa rately.PHENCYCLIDINENegativeNoBarnesville HospitalComment on above: Order Comment: What Is Urine Source? Clean Catch Mid StreamWhat Is Urine Source? Clean Catch Mid StreamPerformed By: #### UDRGS, HCGUR ####[address] [address]Ulhfq Comment: URINE DRUG SCREENS ARE FOR MEDICAL PURPOSES ONLY.THIS TEST PROVIDES ONLY A PRELIMINARY TEST RESULT. A MORESPECIFIC ALTERNATE CHEMICAL METHOD MUST BE USED IN ORDER TOOBTAIN A CONFIRMED ANALYTICAL RESULT.CONFIRMATION PERFORMED UPON REQUESTURINE DRUG SCREENS ARE FOR MEDICAL PURPOSES ONLY.THIS TEST PROVIDES ONLY A PRELIMINARY TEST RESULT. A MORESPECIFIC ALTERNATE CHEMICAL METHOD MUST BE USED IN ORDER TOOBTAIN A CONFIRMED ANALYTICAL RESULT.CONFIRMATION PERFORMED UPON REQUESTCannabinoids ........................... 50Opiates ................................ 300Cocaine ................................ 150Amphetamine ............................ 500Phencyclidine .......................... 25Barbiturates ........................... 200Methadone .............................. 300Benzodiazepines ........................ 200INTERPRETIVE INFOMRATION:This is a screening test only. False positive and falsenegative results can occur.The absence of expected drug(s) and/or drug metabolite(s)may indicate non-compliance, inappropriate timing ofspecimen absorption, diluted/adulterated urine, orlimitations of testing. The concentration at which thescreening test can detect a drug or metabolite varies withina drug class. The concentration value must be greater thanor equal to the cutoffto be reported as positive.The following opiods are not detected in this test:fentanyl,buprenorphine, meperidine, tramadol, andtapentadol. Individual opioid testing is available and canbe ordered separately.THCNegativeNormal Parkwood HospitalComment on above:Order Comment: What Is Urine Source? Clean Catch Mid StreamWhat Is Urine Source? Clean Catch Mid StreamPerformed By: #### UDRGS, HCGUR ####[address] [address]Utddr Comment: URINE DRUG SCREENS ARE FOR MEDICAL PURPOSES ONLY.THIS TEST PROVIDES ONLY A PRELIMINARY TEST RESULT. A MORESPECIFIC ALTERNATE CHEMICAL METHOD MUST BE USED IN ORDER TOOBTAIN A CONFIRMED ANALYTICAL RESULT.CONFIRMATION PERFORMED UPON REQUESTURINE DRUG SCREENS ARE FOR MEDICAL PURPOSES ONLY.THIS TEST PROVIDES ONLY A PRELIMINARY TEST RESULT. A MORESPECIFIC ALTERNATE CHEMICAL METHOD MUST BE USED IN ORDER TOOBTAIN A CONFIRMED ANALYTICAL RESULT.CONFIRMATION PERFORMED UPON REQUESTCannabinoids ........................... 50Opiates ................................ 300Cocaine ................................ 150Amphetamine ............................ 500Phencyclidine .......................... 25Barbiturates ........................... 200Methadone .............................. 300Benzodiazepines ........................ 200INTERPRETIVE INFOMRATION:This is a screening test only. False positive and falsenegative results can occur.The absence of expected drug(s) and/or drug metabolite(s)may indicate non-compliance, inappropriate timing ofspecimen absorption, diluted/adulterated urine, orlimitations of testing. The concentration at which thescreening test can detect a drug or metab olite varies withina drug class. The concentration value must be greater thanor equal to the cutoffto be reported as positive.The following opiods are not detected in this test:fentanyl,buprenorphine, meperidine, tramadol, andtapentadol. Individual opioid testing is available and canbe ordered sepa rately.DRG SCREEN CUT OFFSEE BELOWGlenbeigh Hospitalment on above:Order Comment: What Is Urine Source? Clean Catch Mid StreamWhat Is Urine Source? Clean Catch Mid StreamPerformed By: #### UDRGS, HCGUR ####[address] [id number] Comment: URINE DRUG SCREENS ARE FOR MEDICAL PURPOSES ONLY.THIS TEST PROVIDES ONLY A PRELIMINARY TEST RESULT. A MORESPECIFIC ALTERNATE CHEMICAL METHOD MUST BE USED IN ORDER TOOBTAIN A CONFIRMED ANALYTICAL RESULT.CONFIRMATION PERFORMED UPON REQUESTURINE DRUG SCREENS ARE FOR MEDICAL PURPOSES ONLY.THIS TEST PROVIDES ONLY A PRELIMINARY TEST RESULT. A MORESPECIFIC ALTERNATE CHEMICAL METHOD MUST BE USED IN ORDER TOOBTAIN A CONFIRMED ANALYTICAL RESULT.CONFIRMATION PERFORMED UPON REQUESTCannabinoids ........................... 50Opiates ................................ 300Cocaine ................................ 150Amphetamine ............................ 500Phencyclidine .......................... 25Barbiturates ........................... 200Methadone .............................. 300Benzodiazepines ........................ 200INTERPRETIVE INFOMRATION:This is a screening test only. False positive and falsenegative results can occur.The absence of expected drug(s) and/or drug metabolite(s)may indicate non-compliance, inappropriate timing ofspecimen absorption, diluted/adulterated urine, orlimitations of testing. The concentration at which thescreening test can detect a drug or metabolite varies withina drug class. The concentration value must be greater thanor equal to the cutoffto be reported as positive.The following opiods are not detected in this test:fentanyl,buprenorphine, meperidine, tramadol, andtapentadol. Individual opioid testing is available and canbe ordered separately.Comp Metabolic Profon 11-02-2016(cont.)NormalMercy Pullman Regional HospitalComment on above:Result Comment: Average GFR for 20-29 years old: 116 mL/min/1.73sq mChronic Kidney Disease: <60 mL/min/1.73sq mKidney failure: <15 mL/min/1.73sq meGFR calculated using average adult body mass. Additional eGFR calculator available at:http://[email or web address]_crcl_2011.htmPerformed at [facility], [address] [place] [id number] aminotransferase (ALT)7 U/LNormal5-33MerLegacy Salmon Creek HospitalAlbumin3.9 g/dL Normal3.5-5.2[facility] HospitalAlbumin/Globulin Ratio1.1 {ratio}Normal 1.0-2.5[facility] CenterAlkaline Phos81 U/YZzzadd17-752CsbbuLegacy Salmon Creek HospitalAnion gap15 mmol/LNormal9-17MerLegacy [facility] HospitalAspartate aminotransferase (AST)15 U/LNormal<32MerLegacy Salmon Creek HospitalBilirubin Ql (U)0.40 mg/dLNormal0.3-1.2[facility] HospitalCalcium9.0 mg/dLNormal8.6-10.4MerLegacy Salmon Creek HospitalChloride102 mmol/PCffbwl23-242RlubzLegacy Salmon Creek HospitalCO222 mmol/L Jgevbc88-92AwtipLegacy Salmon Creek HospitalCreatinine0.70 mg/dLNormal0.50-0.90MerLegacy Salmon Creek HospitaleGFR (non-black)mL/min/{1.73_m2}Normal>60Mer[facility] Glucose mass conc92 mg/jSJpeodi81-66Jfowo [facility] HospitalPotassium molar conc 4.0 mmol/LNormal3.7-5.3[facility] HospitalProtein7.6 g/dLNormal6.4-8.3[facility] Networkodium139 mmol/RPsukmh932-361QwubgLegacy Salmon Creek HospitalUrea ieunhnym93 mg/dLNormal6-20[facility] CenterCBC with Diffon [id number]. Basophil0.00 k/uLNormal0.0-0.2[facility] HospitalComment on above:Result Comment: Performed at [facility], [address] [place] [id number].Neutrophil (Seg)4.20 k/uLNormal1.8-7.7[facility] CenterBasophils/100 WBC Auto (Bld)1 %NormalPremier Health [facility] Center Eosinophils0.30 10*3/uLNormal0.0-0.4[facility] CenterEosinophils/100 leukocytes4 %NormalPremier Health Upper Valley Medical CenterErythrocyte distribution width Auto Ratio (RBC)13.0 %Izbwkw80.5-15.4[facility] CenterErythrocytes (RBC)4.51 10*6/uLNormal4.0-5.2[facility] HospitalHematocrit (HCT)39.6 %Ufdtmw55-07 [facility] CenterHemoglobin mass conc (Bld)13.5 g/hFNviwzt34.0-16.0[facility] CenterLymphocytes2.60 10*3/uLNormal1.0-4.8[facility] Lymphocytes/100 sasgcbhlfr02 %NormalPremier Health Upper Valley Medical CenterMCH29.9 xvSgmhqo94-44 [facility] CenterMCHC mass conc (RBC)34.1 g/nNTrjdsi50-28SknmdPremier Health Upper Valley Medical CenterMCV87.8 wRNwzdpn98-262SfxfjPremier Health Upper Valley Medical CenterMonocytes0.40 10*3/uLNormal 0.1-1.2[facility] HospitalMonocytes/100 leukocytes6 %NormalPremier Health Upper Valley Medical CenterNeutrophil (Seg)55 %NormalPremier Health Upper Valley Medical CenterPlatelet mean volume (PMV)9.0 fLNormal6.0-12.0[facility] CenterPlatelets268 10*3/uLNormal 140-450Prem[facility] CenterWBC (Leukocytes)7.5 10*3/uLNormal3.5-11.0[facility] CenterAuto Diff PerformedNOT REPORTEDNormalPrem[facility] Erythrocyte morphologyNOT REPORTEDNormalPremier Health [facility] Medical CenterPlateletsNOT REPORTEDNormalMerLegacy Salmon Creek HospitalWBC MorphologyNOT REPORTEDNormalPremier Health [facility] Medical CenterComp Metabolic Profon 30-96-5088RCZ/CRE RatioNOT REPORTEDNormal9-20 [facility]igh Hospitaltaging:NOT REPORTEDNormalMercy Pullman Regional HospitalHCG, ,Urineon [id number].beta subunit ( test) Ql (U)Negative NormalNEGPremier Health Upper Valley Medical CenterComment on above:Result Comment: Specimens with hCG levels near the threshold of the test (25 mIU/mL) may give a negative or indeterminate result. In such cases, another test should be performed with a new specimen in 48-72 hours. If early is suspected clinically in this setting, correlation with quantitative serum b-hCG level is suggested.Performed at [facility], [address] [place], [place] [id number] w/Reflex Cultureon [id number] mass conc NegativeNormalNEGMerLegacy Salmon Creek HospitalBilirubin (direct)NegativeNormalNEGMerLegacy Salmon Creek HospitalHemoglobin mass conc (Bld)TRACEAbnormalNEGMerLegacy Salmon Creek HospitalNitrite,UrNegativeNormalNEGMercy [facility]man Regional HospitalTurbidityCLEARNormal CLEARMerState mental health facility, colorYELLOWNormalYELMercy [facility] Hospital Urine, glucose presenceNegativeNormalNEGSumma Health Barberton Campuscy [facility], leukocyte esterase presenceNegativeNormalNEGMercy Health Perrysburg Hospitalment on above:Result Comment: Performed at [facility], [address] [place] [address]Qokcq, pH5.5 [pH]Normal5.0-8.0[facility], protein presenceTRACEAbnormalNEGMercy [facility], specific gravity1.134Rogh0.005-1.030[facility] HospitalUrobilinogen,UrNormal NormalNORMMerLegacy Salmon Creek HospitalCommentNOT REPORTEDNormalMercy [facility] Regional HospitalUrinalysis,Microon 11-01-2016-----NormalMercy Pull[facility] Regional HospitalMucus Strands1+AbnormalNONEMercy Pullman Regional HospitalOther ObservationsUtilizing a urinalysis as the only screening method to exclude a potentialAbnormalNREQMercy Pullman Regional HospitalComment on above:Result Comment: uropathogen can be unreliable in many patient populations. Rapid screening tests are less sensitive than culture and if UTI is a clinical possibility, culture should be considered desp ite a negative urinalysis.Performed at [facility], [address] [place] [id number] WBC's0 TO 8Dmjnfu0-7 [facility], bacteria in sedimentFEWAbnormalNONEMeMilitary Health SystemUrine, epithelial cells in sediment0 TO 8Hrwiyo7-7Xiuqx [facility] HospitalUrine, erythrocytes0 TO 9Lukaxt1-6Miync [facility] HospitalEpithelial, RenalNOT KDEZIXZUWhfnhh8Cyypo [facility] HospitalTrichomonasNOT REPORTEDNormalNONE [facility] CenterUrine, amorphous sediment presence in sedimentNOT REPORTEDNormalNONEMePeaceHealth [facility], casts in sedimentNOT REPORTED Normal0-2[facility], crystals in sedimentNOT REPORTEDNormal NONEMercy [facility], yeast presence in sedimentNOT REPORTEDNormal NONEPremier Health [facility] Center Vital Signs Date TimeVital SignValuePerforming GicnpcbdaAcuthbmc04-05-7067 11:19-0500 Diastolic blood thvvxooh39 mm[Hg][facility]02-04-2025 11:19-0500Heart rate67 /[facility]02-04-2025 11:19-0500Respiratory rate18 /[facility]02-04-2025 11:19-9790YjR9% (BldA) [Mass fraction]99 %[facility] 05-24-2024 11:19-0500Systolic blood cnebgfga802 mm[Hg][facility]02-04-2025 08:35-0500Body xbrgpo704.02 cmC[facility] Clinic [facility]02-04-2025 08:35-0500Body dflyaiikkif53.4 [degF][facility]02-04-2025 08:35-0500Body uwcdil31.1 kgC[facility] 03-11-2024 20:50-0500Diastolic blood gxwmptzo70 mm[Hg][facility]11-22-2024 20:50-0500Heart rate70 /minC[facility] Clinic [facility] 03-11-2024 20:50-0500Respiratory rate16 /minC[facility] 03-11-2024 20:50-5886QbC7% (BldA) [Mass fraction]100 %[facility]11-22-2024 20:50-0500Systolic blood tgvbyjzj662 mm[Hg][facility]11-22-2024 15:58-0500Body nftyll549.02 cmC[facility]11-22-2024 15:58-0500Body hzvmryhehgd22.5 [degF][facility]11-22-2024 15:58-0500Body xfooia78.3 kgC[facility]11-10-2024 22:11-0500Diastolic blood kssguhpl81 mm[Hg][facility]11-10-2024 22:11-0500Heart rate75 /minSt[facility]11-10-2024 22:11-0500Mean blood nbhcdydv13 mm[Hg][facility]11-10-2024 22:11-0500 Respiratory rate18 /minSt. [facility]11-10-2024 22:11-9425IjN5% (BldA) [Mass fraction]99 %[facility]11-10-2024 22:11-0500Systolic blood vfhixvlu844 mm[Hg][facility]11-10-2024 21:00-0500Diastolic blood dfibomnb83 mm[Hg] [facility]11-10-2024 21:00-0500Heart rate66 /minSt. [facility]11-10-2024 21:00-7964JcU4% (BldA) [Mass fraction]100 %[facility]11-10-2024 21:00-0500Systolic blood ifcsbcqg087 mm[Hg][facility]11-10-2024 20:30-0500Diastolic blood gxhqhylb17 mm[Hg][facility]11-10-2024 20:30-0500Heart rate63 /minMartins Ferry Hospital11-10-2024 20:30-0500Mean blood srwophko41 mm[Hg] [facility]11-10-2024 20:30-0500Respiratory rate 20 /minSt. [facility]11-10-2024 20:30-4090UzZ7% (BldA) [Mass fraction]95 %[facility]11-10-2024 20:30-0500Systolic blood exntxlhw565 mm[Hg][facility]11-10-2024 18:15-0500Body ddjkhufboxs36.78 [degF][facility]11-10-2024 18:15-0500Heart rate84 /minSt. [facility]06-07-2023 09:52-0400Body wkwihc543.02 cmFNP-BC You Bullimore Work Phone: [facility]06-07-2023 09:52-0400 Body fxsxnnmidix40.6 [degF][facility]- You Bullimore Work Phone: [facility]06-07-2023 09:52-0400 Body icsblt69.05 kgFNP-BC You Bullimore Work Phone: [facility]06-07-2023 09:52-0400 Diastolic blood ymgmhnvv27 mm[Hg][facility] You Bullimore Work Phone: [facility]06-07-2023 09:52-0400 Heart rate94 /minFNP-BC You Bullimore Work Phone: [facility]06-07-2023 09:52-0400 Respiratory rate18 /minFNP-BC You Bullimore Work Phone: [facility]06-07-2023 09:52-0400 SaO2% (BldA) [Mass fraction]95 %[facility]-BC You Bullimore Work Phone: [facility]06-07-2023 09:52-0400 Systolic blood liflufog707 mm[Hg][facility]-BC You Bullimore Work Phone: [facility]11-16-2022 01:37-0500 Diastolic blood pciinpzm28 mm[Hg]DO Timmy Nguyễn III Work Phone: [phone]11-16-2022 01:37-0500 Heart rate68 /minDO Timmy Nguyễn III Work Phone: [phone]11-16-2022 01:37-0500 Respiratory rate18 /minDO Timmy Nguyễn III Work Phone: [phone] [place], [place] [address]11-16-2022 01:37-0500 SaO2% (BldA) [Mass fraction]100 %DO Timmy Nguyễn III Work Phone: [phone] [place], [place] [address]11-16-2022 01:37-0500 Systolic blood bwpemgpv439 mm[Hg]DO Timmy Nguyễn III Work Phone: [phone] [place], [place] 4746711-15-2022 22:35-0500 Body .02 cmDO Timmy Nguyễn III Work Phone: [phone] [place], [place] 4746711-15-2022 22:35-0500 Body xayvhunqcxd44.9 [degF]DO Timmy Nguyễn III Work Phone: [phone] [place], [place] 4746711-15-2022 22:35-0500 Body zmdtup46.6 kgDO Timmy Nguyễn III Work Phone: [phone] [place], [place] 4746707-16-2022 02:57-0400 Body uvvkye000 Shira Rios MD Work Phone: [phone]07-16-2022 02:57-0400Body mass index (BMI) [Ratio]30.11 kg/u1JzuhrjvhSimin Rios MD Work Phone: 1(525)Donal4283BSHERIDAN [facility]07-16-2022 02:57-0400Body xqizaubixly61.1 [degF]Simin Rios MD Work Phone: 1(370)[facility]onalPaulCARIL[facility]07-16-2022 02:57-0400Body oulteu27.11 kgSimin Rios MD Work Phone: 1(420)[facility] MilwaukeePaulCAR[facility]07-16-2022 02:57-0400Diastolic blood mm[Hg]Simin Rios MD Work Phone: [phone]07-16-2022 02:57-0400Heart aqyo079 /minSimin Rios MD Work Phone: 1(428)[facility] MilwaukeeJ[facility]Y [facility]07-16-2022 02:57-0400 Respiratory rate16 /minSimin Rios MD Work Phone: [phone])174-PaulCARILION [facility]07-16-2022 02:57-6544JzG2% (BldA) [Mass fraction]98 %Simin Rios MD Work Phone: [phone])889-Camille3BCARILION STONEWALL JACK[facility]07-16-2022 02:57-0400Systolic blood rbjosqof134 mm[Hg]Simin Rios MD Work Phone: [phone])869-Camille3BSHERIDAN [facility]02-07-2022 12:42-0500Diastolic blood hcyfqala91 mm[Hg]Shad Zimmerman MD Work Phone: [facility]Pvbgxb42[facility]6067 12:42-0500Heart rate59 /min Shad Zimmerman MD Work Phone: [facility] HospitalVnpcud72-00-5070 12:42-0500Respiratory rate18 /minShad Zimmerman MD Work Phone: 1([phone] [place], [place] 2452902-07-2022 12:42-0500Systolic blood bohrgepi186 mm[Hg]Shad Zimmerman MD Work Phone: [address] [place], [place] [address]Rvnvxh13-25-1203 11:24-0500Body mass index (BMI) [Ratio]28.34 kg/b9GxxtbvShad Zimmerman MD Work Phone: [address] [place], [place] [address]Hiegtt42-87-0007 11:24-0500Body spjzvhwgmaw76.59 [degF]Shad Zimmerman MD Work Phone: [address] [place], [place] [address]Qbnqfe21-07-8863 11:24-0500Body lmwsjo72.58 kg Shad Zimmerman MD Work Phone: [address] [place], [place] [address]Uoyqju57-24-5775 11:24-9396GjJ1% (BldA) [Mass fraction]97 %Shad Zimmerman MD Work Phone: [phone] [place], [place] 2452910-05-2020 09:43-0400Pulse (Heart Rate)76 /[facility], NT32-41-0071 09:41-0400BMI (Body Mass Index)23.91 kg/k6XiwgfutSanford Medical Center, ZW42-14-2061 09:41-0400 Body hpbior70.24 kgSan[facility], MC51-33-4281 09:41-0400 BP Oxvdydqkt86 mm[Hg][facility], MZ66-92-6202 09:41-0400BP Hpjxgpba814 mm[Hg][facility], SH31-23-8294 09:41-1494Urdzkk329 cmRTrinity Health, ZE63-43-1092 09:41-0400Pulse Xqrqtgux62 %[facility], XM94-58-4361 09:41-0400Respiratory Rate16 /[facility] [place] 01-23-2020 09:34-0400Body Sqdvmaddkdi54.9 [degF]Woodrow [facility], RA68-02-8311 08:02-0400BP Fpotevuat43 mm[Hg][facility] 07-17-2019 08:02-0400BP Dkkpztwf816 mm[Hg]Amaury FnhmsyaChhwZkngxq58-94-3032 08:020400Pulse (Heart Rate)99 /minAmaury MtnahuiNqbeNatdwl96-47-2780 08:02-0400 Pulse Cjwthjds34 %Amaury WjglwkhJbzcYshcqr70-62-0948 08:02-0400Respiratory Rate 16 /minHowcynthia AfretqjCtwlKpwwwv50-08-0114 07:0400BMI (Body Mass Index)24.8 kg/m6Aszger XwecwwhVaukFstlac80-21-5014 07:040Body Usfcgnhqoov37.7 [degF] Amaury ZbrgrudRjndRwptzu04-96-7137 07:040Body mkydzn65.5 kgAmaury [facility] HospitalMlfhRqfoue03-10-4457 07:8422Hunvjn967 cmHowHolzer Health System Encounters Encounter DateEncounter TypeCare ProviderFacilityStart: 02-13-2025 End: 07-49-3591ssewukwcdkYaemshn [facility] MEDICAL CENTERBATOOLFacility:Occupational Health and WellnessStart: 01-23-2025 End: 40-24-4730Pxlpoxniz department patient visitPHYSICIAN NO FAMILY-Emergency Room Work Phone: Start: 89-84-2064jjhiiovvxyHjvmg [facility] Hospitaltart: 05-24-2024 End: 51-14-2647Uhzyxswsr department [facility] Work Phone: Start: 03-11-2024 End: 46-72-8275Bycwpwmky department patient visitFirRegional Medical Center [facility]- [facility] Work Phone: Start: 02-29-2024 End: 69-50-0512Pvwizqhs flow sheetNoms Sws Ob NurseNOMS SWS OBComment on above: GA: 0m2pLymmt: 02-29-2024 End: 15-52-8621wcpgwvqhwoHWMTGKF BRUNERNot AvailableStart: 02-28-2024 End: 94-95-9914Kaygtadgu department patient visitAstrit Jason AburtoGrace Medical Center Start: 11-19-2023 End: 14-17-5118fobikragboGcvmsvo HARWOODFacility:Occupational Health and WellnessStart: 11-19-2023 End: 81-30-6697vxuzilapvgVkel T AMESFacility:FTMCStart: 08-25-2023 End: 08-45-8358psznvglrawGHVPXTN G TESMONDNot AvailableStart: 07-10-2023 End: 10-10-0206vxvwllfddvTBQNAWI D BRUNERNot AvailableStart: 07-09-2023 End: 86-42-7838Ywyvexizr department patient visitLISA J LUIS [facility] Hospitaltart: 09-29-2022 End: 04-91-2848ondofnleinUMGC Juan [facility] Hospitaltart: 07-90-9202Gvxhiydfv for general adult medical examination without abnormal findingsMemorial Health System Selby General Hospitaltart: 09-24-2022 End: 86-10-0049Tqvxxxsqj department patient visitFNP-RIANNA You Braeden Work Phone: [facility] Work Phone: Start: 03-04-2022 End: 84-69-2931Wgbsovzkg department patient visitDO Timmy Nguyễn III Work Phone: [facility]-Emergency RoomStart: 11-02-2021 End: 13-76-4555Fpotixsqp department patient visitCOMAYCO AdamLos Angeles County Los Amigos Medical Centertart: 11-02-2021 End: 19-51-9411Cvajypnxu department patient visitComayco Rios MD Work Phone: [facility] EDComment on above:COVID-19 (Primary Dx)Start: 05-27-2021 End: 64-25-8689Bdgkpufjr department patient visitSHAD ZIMMERMANMetroHealth Parma Medical Centertart: 05-27-2021 End: 99-06-2493Bvwbfqtuy department patient visitShad Zimmerman MD Work Phone: [facility] EDComment on above:Cough (Primary Dx); Body aches; Other fatigueStart: 08-28-2020 End: 31-28-6162Wqxvnacyt department patient visitNASHEABIGAIL FAKHOURIFacility:[facility] Start: 01-23-2020 End: 60-02-4185Tdrcuwagp department patient visitRichcynthia Chang [facility] EDComment on above: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 Emergency DepartmentComment on above: Acute UTI (Primary Dx)Start: 06-22-2019 End: 15-21-8174Uhmlhio encounter procedureSCANDICE ANTONFacility:J1Vduqo: 12-17-2017 End: 74-70-0091Xbpvhpacf department patient visitErik WhiteFacility:[facility] Akrontart: 11-01-2016 End: 98-95-4813Yibbvfafl department patient visitDANIVIRGINIA Sharpe [facility] Procedures DateProcedureProcedure DetailPerforming ClinicianStart: 34-81-7844Kjimg nucleic acid assayStart: 44-83-0880Anxmtphp tomography of abdomen and pelvis with contrastStart: 97-48-6896Lwsniczccz ultrasound of gravid uterusStart: 03-11-2024 Bacteria identification testStart: 65-06-6585Sklcoxsyjuynq of growth of fungi Start: 74-03-2405Hghsemimilj vaginalis detectionStart: 77-37-8837Nrupeurbxcwd obstetric ultrasonographyStart: 93-76-9700V-ray of cervical spineFNP-BC You Deras Work Phone: Start: 41-40-1254MQVLN-19, Andria Ramsay MD Work Phone: Start: 93-31-8167Qxscetsfracve metabolic panelSage Ramsay MD Work Phone: Start: 05-03-5332Jigid test visual color cmprsn methsAdrienne Shannan Lowe PA-C Work Phone: Start: 06-52-8945Hye routine ecg w/least 12 lds w/i&r Helena Shannan Lowe PA-C Work Phone: Start: 36-00-2934Vhsrpcqpcp exam chest single view Helena Shannan Lowe PA-C Work Phone: Start: 36-70-0120YHLMC-19, RAPIDAdribella Shannan Lowe PA-C Work Phone: Start: 06-87-3092Psuwhabz screenNASHEED FIDENCIO Comment on above:Performed By: #### [id number] #### [address] [address], USAStart: 84-47-9608Upfmpteqvig observation [Identifier] in Cervix by Cyto stainSimin Rios MD Work Phone: Start: 31-47-1311Jbfcd of lipaseBigg Gutierrez Work Phone: Start: 68-19-4012Mutec of magnesiumCasejane Gutierrez Work Phone: Start: 99-45-6901Enpht of troponin quantitativeBigg Gutierrez Work Phone: Start: 71-46-7818Zasgf count complete auto&auto difrntl wbcCasejane Gutierrez Work Phone: Start: 07-68-6199Cobmlxqvdeav chorionic qualitative Bigg Gutierrez Work Phone: Start: 54-66-2471Hijpefbwcm microscopic onlyBigg Gutierrez Work Phone: Start: 71-73-7368Ukffw dip stick/tablet rgnt auto w/o microscopyBigg Gutierrez Work Phone: Start: 57-93-7537Bhindkrwlo exam chest single view Bigg J Matt Work Phone: Start: 41-19-6814Buecaqhisffodhhtxb ( test) [Presence] in UrineLissy Buck Work Phone: Start: 46-50-5441UactonpbwzOaipa Michelle Moffitt Work Phone: Start: 54-59-0835JLS WITH AUTO DIFFERENTIALDANIEL NEUTXYERStart: 41-92-5202EOYLIUALKXPMF METABOLIC PANELDANIEL BIGFORK VALLEY HOSPITALStart: 28-43-3103KJPE NPO, NOWDANIEL BIGFORK VALLEY HOSPITALStart: 89-60-2796NLXHST PERIPHERAL IV MARLENY NORAHOLY CROSS HOSPITALStart: 76-45-8310Bhnqfxjxjql urinalysisDANITHIBODAUX REGIONAL MEDICAL CENTERStart: 50-59-1436NSCGGKOML, URINEDANITHIBODAUX REGIONAL MEDICAL CENTERStart: 68-93-9866CX W/REFLEX CULTURE MARLENY DYKES Plan of Treatment DateCare ActivityDetailAuthorStart: 75-90-0271Kiizedude for malignant neoplasm of cervixNOMS HealthcareStart: 12-02-1537Ozpnzhee identified in Urine by Culture Urine CultureGerman Hospitaltart: 12-89-8088Ziwga culture [facility] Hospitaltart: 04-05-2024 End: 57-69-2489qrdsvyycnn73/17/2024 2:00 PM EST Initial N[facility] [address] [place] [phone] Noe Hernandez MD [address] [place] [address] [facility] OBStart: 03-14-2024 End: 66-35-4135Urzptgzbetbz / ancillary services fqhzjudgis41/25/2024 8:45 AM EST Ancillary Procedure [facility] [address] [place] [phone] [facility] OBStart: 02-29-2024 End: 58-30-8321Uhiydzrl identified in Urine by CultureUrine culture Microbiology Routine care, subsequent in first trimester Expected: 02/29/2024 (Approximate), Expires: 02/28/2025[facility] Work Phone: comment on above:Expected: 02/29/2024 (Approximate), Expires: 02/28/2025Start: 02-29-2024 End: 21-43-9185Snqdj type and Indirect antibody screen panel - BloodType and screen Lab Routine care, subsequent in first trimester Expected: 02/29/2024 (Approximate), Expires: 02/28/2025[facility] HealthcareComment on above:Expected: 02/29/2024 (Approximate), Expires: 02/28/2025Start: 02-29-2024 End: 08-02-4643MCY W Auto Differential panel - BloodCBC and differential Lab Routine care, subsequent in first trimester Expected: (Approximate), Expires: 02/28/2025[facility] HealthcareComment on above: Expected: 02/29/2024 (Approximate), Expires: 02/28/2025Start: 02-29-2024 End: 24-95-0784Idzzgbwir B virus surface Ag [Presence] in Serum or Plasma by ImmunoassayHepatitis B surface antigen Lab Routine care, subsequent in first trimester Expected: 02/29/2024 (Approximate), Expires: 02/28/2025[facility] HealthcareComment on above:Expected: 02/29/2024 (Approximate), Expires: 02/28/2025Start: 02-29-2024 End: 04-50-8782Hkeiqbnsq C virus Ab [Presence] in Serum or Plasma by Immunoassay Hepatitis C antibody Lab Routine care, subsequent in first trimester Expected: 02/29/2024 (Approximate), Expires: 02/28/2025[facility] Comment on above:Expected: 02/29/2024 (Approximate), Expires: 02/28/2025Start: 02-29-2024 End: 52-12-9803ERX-1/HIV-2 antigen/antibody combination immunoassayHIV-1 and HIV-2 antibodies Lab Routine care, subsequent in first trimester Expected: 02/29/2024 (Approximate), Expires: 02/28/2025[facility] Healthcare Comment on above:Expected: 02/29/2024 (Approximate), Expires: 02/28/2025Start: 02-29-2024 End: 83-88-0373NxpzftdW49 PLUS Core+SAUAensjpvL25 PLUS Core+SCA Pathology and Cytology Routine care, antepartum Encounter for screening for chromosomal anomalies Expected: 02/29/2024 (Approximate), Expires: 02/28/2025 [facility] HealthcareComment on above:Expected: 02/29/2024 (Approximate), Expires: 02/28/2025Start: 02-29-2024 End: 24-57-9869Qtg (dx) w/refl titer and confirmatory testingRpr (dx) w/refl titer and confirmatory testing Lab Routine care, subsequent in first trimester Expected: 02/29/2024 (Approximate), Expires: 02/28/2025[facility] HealthcareComment on above:Expected: 02/29/2024 (Approximate), Expires: 02/28/2025Start: 02-29-2024 End: 99-20-7323Ptreqlt antibody, IgGRubella antibody, IgG Lab Routine care, subsequent in first trimester Expected: 02/29/2024 (Approximate), Expires: 02/28/2025[facility] HealthcareComment on above:Expected: 02/29/2024 (Approximate), Expires: 02/28/2025Start: 02-29-2024 End: 00-62-9492GKSAHIX TEST MISCELLANEOUS [facility]ORPBE[facility] HealthcareComment on above:Expected: 02/29/2024 (Approximate), Expires: 02/28/2025Start: 02-29-2024 End: 18-37-6625Zphkeqxitm complete panel - UrineUrinalysis with microscopic Lab Routine care, subsequent in first trimester Expected: 02/29/2024 (Approximate), Expires: 02/28/2025[facility] HealthcareComment on above: Expected: 02/29/2024 (Approximate), Expires: 02/28/2025Start: 12-20-2023 Influenza vaccinationInfluenza Vaccine (#1)[facility] HealthcareStart: 02-01-2023 Screening for malignant neoplasm of cervixPap smearBON [facility] Start: 83-64-7086Eelfq chest X-rayXR chest 2V*[facility] Start: 04-18-2496II Chest 2 ViewsGerman Hospitaltart: 47-41-7381Jlncqlbyld MonitoringDepression MonitoringBON [facility]IAL [facility] Start: 09-20-6378Yydzrsiinb ScreenDepression ScreenHighland District HospitalStart: 12-19-2021 Influenza vaccinationFlu vaccine (#1)[facility] 01-31-2021 COVID-19 Vaccine (2 - Moderna 3-dose series)COVID-19 Vaccine (2 - Moderna 3-dose series)[facility]: 03-43-8362RJVFL-19 Vaccine (2 - Moderna series)COVID- 19 Vaccine (2 - Moderna series)[facility]: 12-19-2020 Influenza vaccinationFlu vaccine (#1)[facility]: 92-57-1417Mqlsunbcv vaccinationFlu vaccine (#1)[facility]: 55-89-3710Fnspmrdmp for malignant neoplasm of cervixHighland District HospitalStart: 47-51-5314TCyT/Tdap/Td vaccine (1 - Tdap)DTaP/Tdap/Td vaccine (1 - Tdap)[facility]: 15-59-9101Ksqnyufkpxoe 0-64 years Vaccine (1 - PCV)Pneumococcal 0-64 years Vaccine (1 - PCV)[facility]: 55-03-9479Qrqzfsafduqq 0-64 years Vaccine (1 of 2 - PPSV23)Pneumococcal 0-64 years Vaccine (1 of 2 - PPSV23)[facility]: 15-04-6376Ifkaqpkns vaccine (1 of 2 - 2-dose childhood series)Varicella vaccine (1 of 2 - 2-dose childhood series)[facility] HospitalCB W Auto Differential panel - BloodCBC with Auto Differential Lab Stat [employer] Label print 11/02/2021 4:31 AM EDTBON [facility]A [facility] Work Phone: End: 33-13-7336Zrmuijeac trachomatis rRNA assayChlamydia/GC/Trichomonas Amplified RNA Microbiology Routine Once for 1 Occurrences starting 07/17/2019 until 07/17/2019[facility]HealthComment on above:Once for 1 Occurrences starting 07/17/2019 until 07/17/2019EKG 12 LeadEKG 12 Lead ECG Routine 05/27/2021 12:38 PM [facility] Work Phone: End: 50-39-8585Npjyccoly gonorrhoeae nucleic acid detectionChlamydia/Gonorrhoeae Amplified RNA Microbiology Routine Once for 1 Occurrences starting 07/17/2019 until 07/17/2019OhioHealthComment on above:Once for 1 Occurrences starting 07/17/2019 until 07/17/2019[facility] EducationL[facility]tr Work Phone: Patient referralL[facility] City Hospital Ctr Work Phone: End: 36-01-4101Cbsttcvageh vaginalis Amplified RNATrichomonas vaginalis Amplified RNA Microbiology Routine Once for 1 Occurrences starting 07/17/2019 until 07/17/2019OhioHealthComment on above:Once for 1 Occurrences starting 07/17/2019 until 07/17/2019 Immunizations Immunization DateImmunizationNotesCare PkdwpwihIzgymixr15-25-7379OMFHX-18, Moderna, Primary or Immunocompromised, PF, 100mcg/0.5mLShad Zimmerman MD Work Phone: [facility] HospitalQrywfv42-22-9543nsenoqu toxoid, reduced diphtheria toxoid, and acellular pertussis vaccine, adsorbedAstrit [facility] Payers DatePayer CategoryPayerPolicy [id number]-nes [id number] [id number].3.826461.315 2019MedicaidCARESOURCE MANAGED MEDICAID CARESOURCE MEDICAID xxxxxxxxxxx 2018-Presentxxxxxxxxxxx [id number] 2.16.840.1.747141.3.57[id number] 2.840.1.827253.3.57[id number] 2.840.1.013499.3.57[id number] 2.840.1.388690.3.57[id number] 2.840.1.522010.3.57[id number] 2.840.1.556112.3.57[id number] 2.840.1.432654.3.57[id number] 2.840.1.926475.3.579.2.[id number] 2.84.1.429716.3.57[id number] 2.840.1.863215.3.57[id number] 2.840.1.703870.3.579.2.18219-06-5721Gwarqqi4797054 2.840.1.102203.3.57[id number] 2.840.1.663493.3.57[id number] 2.16.840.1.995086.3.57[id number] 2.16.840.1.592659.3.57[id number] 2.16.840.1.281509.3.57[id number] 2.16840.1.762013.3.579.[id number] 2.16840.1.691988.3.579.2.727 [id number] 38hlj060-5z72-4p01-7530-[id number] 2.16840.1.241[id number] 2.840.1.066828.3.579.2.531 [id number] 2.0.1.729138.3.579.2.531 Social History DateTypeDetailFacilityStart: 07-17-2019 End: 92-44-0396Xcaqngd smoking status NHISCurrent every day smokerHighland District Hospital Start: 07-17-2019 End: 84-13-4190Tinkbkdtyg smoked current (pack per day) - ReportedOhioHealth Start: 36-08-2085Soofxcb intakeLifetime non-drinker (finding)[facility]HealthStart: 07-17-2019 End: 70-01-5318Mhmhkqx SDOH Alcohol Pikakaieh0CnsvViigvyVtjhw: 78-43-0520Lzu Assigned At BirthNot on fileOhioHealthStart: 01-23-2020 End: 09-70-7824Efvcxll use and exposureNever usedHighland District Hospital- [place], [place]Start: 01-23-2020 End: 65-14-3642Bsoyxnd intakeCurrent non-drinker of alcohol (finding)[facility] [place], [place]Start: 10-23-2021 End: 71-59-8380Isgobffk to SARS-CoV-2 (event)Not sureSelect Medical [facility], [place], KYHistory of tobacco useCigarette SmokerHighland District Hospital Work Phone: start: 56-16-8638Imvqouv SDOH Fctikqskj8Qqiog [facility] Work Phone: start: 03-05-2022 End: 50-95-5507Ubsoknj smoking status NHISSmoker (finding)[facility]art: 51-62-8930Zof Assigned At [facility] Charles HospitalTobaccoPast, Cigarettes, 1 per day.[facility] Comment on above:still smokingpatient reports she quit smoking one month agoTobacco smoking statusNo Smoking Status EnteredUniversity Hospitals Geauga Medical Center Start: 10-01-2022 End: 62-66-4750Swu Assigned At [facility] Andersontart: 30-09-6076Nznqkyj smoking status NHISNever smoked tobaccoNOMS HealthcareStart: 17-36-1892Odvwelb use and exposureUser of smokeless tobaccoNOMS HealthcareStart: 30-88-2833Jwkgrqatf beverage intakeEx-drinker (finding)[facility] HealthcareHow often to you have a drink containing alcohol?NeverNOMS HealthcareHow many standard drinks containing alcohol do you have on a typical day?Patient does not drink [facility] HealthcareStart: 33-87-6032Puidhhm CommentvapingNOMS HealthcareStart: 58-69-2111Bfryipz CommentCaffeine intake: RareNOMS HealthcareStart: 01-30-2024 PregnancyGerman Hospitaltart: 95-12-5108OcvGxouwo (finding) [facility] Functional Status AyhbRkjngirbzuCfluwvXvbpckfn70-99-8061Umsirypnqr StatusN/AFHolzer Hospital Clinical Notes 02-28-2024 to 01-23-2025 Note Date & AqnvQmtnTyllezmi04-67-9462 NoteED Patient Education Note Obstetrics and Gynecology Abnormal Uterine Bleeding Abnormal uterine bleeding is unusual bleeding from the uterus. It includes bleeding after sex, or bleeding or spotting between menstrual periods. It may also include bleeding that is heavier than normal, menstrual periods that last longer than usual, or bleeding that occurs after menopause. Abnormal uterine bleeding can affect teenagers, women in their reproductive years, women, and women who have reached menopause. Common causes of abnormal uterine bleeding include: ??? . ??? Abnormal growths within the lining of the uterus (polyps). ??? Benign tumors or growths in the uterus (fibroids). These are not cancer. ??? Infection. ??? Cancer. ??? Too much or too little of some hormones in the body (hormonal imbalances). Any type of abnormal bleeding should be checked by a health care provider. Many cases are minor andsimple to treat, but others may be more serious. Treatment will depend on the cause of the bleedingand how severe it is. Follow these instructions at home: Medicines ??? Take jtqw-ndr-gexsqzm and prescription medicines only as told by your health care provider. ??? Ask your health care provider about: ? Taking medicines such as aspirin and ibuprofen. These medicines can thin your blood. Do not take these medicines unless your health care provider tells you to take them. ? Taking vvve-wki-atmoxte medicines, vitamins, herbs, and supplements. ??? If you were prescribed iron pills, take them as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 DATE CREATED AUTHOR AUTHOR'S ORGANIZ ATION 09/30/2022 [facility] DATE CREATED AUTHOR AUTHOR'S ORGANIZ ATION 07/11/2023 [facility] DATE CREATED AUTHOR AUTHOR'S ORGANIZ ATION 02/29/2024 [facility] DATE CREATED AUTHOR AUTHOR'S ORGANIZ ATION 03/01/2024 [facility] DATE CREATED AUTHOR AUTHOR'S ORGANIZ ATION 10/30/2024 [facility] DATE CREATED AUTHOR AUTHOR'S ORGANIZ ATION 01/25/2025 [facility] DATE CREATED AUTHOR AUTHOR'S ORGANIZ ATION 01/25/2025 [facility] DATE CREATED AUTHOR AUTHOR'S ORGANIZ ATION 01/27/2025 [facility] DATE CREATED AUTHOR AUTHOR'S ORGANIZ ATION 02/15/2025 [facility] Reason for Visit (unrecogniz ed section and content) ReasonCommentsDysuriaReasonCommentsAnxietycoming off Fentanyl and Xanax. On Methadone dosed by [facility]. Feels shaky, nervous, anxious. History of anxiety Last use of drugs 2-3 days ago, feeling his way sinceReasonCommentsShortness of BreathReasonCommentsHeadacheFatigueReasonCommentsInitial Visit Lissy Buck, - 07/17/2019 7:36 AM EDT ED Notes (unrecognized secti on and content) [facility] ED Resident Note: NAME: Dianne Valente 28 y.o. CSN: [id number] PCP: Physician No History: Chief Complaint: Dysuria HPI: The history was obtained from the patient. Dianne is a 28 y.o. female who presents with a chief complaint of Dysuria. HPI patient complains of dysuria x1 day. She reports associated hematuria. She reports lower abdominal discomfort. No flank pain or tenderness. Denies fever but reports chills. No nausea, vomiting ordiarrhea. Patient reports he is having intercourse with a partner and did have unprotected sex several times in the last few days. She reports some vaginal discharge that is unusual for her. No history of abdominal or vaginal trauma. PMHx: History reviewed. No pertinent past medical history. PMSx: History reviewed. No pertinent surgical history. FAM. Hx: History reviewed. No pertinent family history. SOC. Hx: Social History Socioeconomic History Marital status: Single Spouse name: Not on file Number of children: Not on file Years of education: Not on file Highest education level: Not on file Occupational History Not on file Social Needs Financial resource strain: Not on file Food insecurity Worry: Not on file Inability: Not on file Transportation needs Medical: Not on file Non-medical: Not on file Tobacco Use Smoking status: Current Every Day Smoker Packs/day: 1.00 Smokeless tobacco: Never Used Substance and Sexual Activity Alcohol use: Never Frequency: Never Drug use: Not Currently Sexual activity: Not on file Lifestyle Physical activity Days per week: Not on file Minutes per session: Not on file Stress: Not on file Relationships Social connections Talks on phone: Not on file Gets together: Not on file Attends judaism service: Not on file Active member of club or organization: Not on file Attends meetings of clubs or organizations: Not on file Relationship status: Not on file Other Topics Concern Not on file Social History Narrative Not on file MEDs: No current outpatient medications on file prior to encounter. ALL: No Known Allergies ROS: Review of Systems Positives and pertinent negatives as per HPI. All other systems were reviewed and are negative. Physical Exam: Patient Vitals for the past 24 hrs: BP Temp Temp src Pulse Resp SpO2 Height Weight 07/17/19 0721 136/85 97.7 F (36.5 C) Oral (!) 118 18 97 % 5' 3 63.5 kg (140 lb) Physical Exam Vitals signs and nursing note reviewed. Constitutional: General: She is not in acute distress. Appearance: She is well-developed. She is not diaphoretic. HENT: Head: Normocephalic and atraumatic. Eyes: General: No scleral icterus. Neck: Musculoskeletal: Neck supple. Cardiovascular: Rate and Rhythm: Regular rhythm. Tachycardia present. Pulmonary: Effort: Pulmonary effort is normal. No respiratory distress. Abdominal: General: There is no distension. Palpations: Abdomen is soft. There is no mass. Tenderness: There is abdominal tenderness (Suprapubic, mild). There is no right CVA tenderness, left CVA tenderness, guarding or rebound. Hernia: No hernia is present. Skin: General: Skin is warm and dry. Neurological: Mental Status: She is alert and oriented to person, place, and time. Psychiatric: Behavior: Behavior normal. Laboratory & Radiological Imaging (if done): Labs Reviewed URINALYSIS - Abnormal; Notable for the following components: Result Value Color, Urine [place] (*) Clarity, Urine Cloudy (*) Specific [place] 1.028 (*) Protein, Urine >=500 (*) Ketones, Urine Trace (*) Urobilinogen, Urine 2.0 (*) Blood, Urine Large (*) Leukocyte Esterase, Urine Moderate (*) WBCs, Urine >180 (*) RBCs, Urine >180 (*) Mucus, Urine Many (*) All other components within normal limits Narrative: Microscopic examination is performed on all urinalysis samples and only positive findings are reported. The test for blood on the chemical analytic portion of urinalysis may also be positive due to hemoglobinuria and myoglobinuria and if red blood cells are present they are quantified by microscopic examination. HCG URINE, QUALITATIVE - Normal CHLAMYDIA/GC/TRICHOMONAS AMPLIFIED RNA Narrative: The following orders were created for panel order Chlamydia/GC/Trichomonas Amplified RNA. Procedure Abnormality Status --------- ------ Chlamydia/Gonorrhoeae Am...[[id number]] Trichomonas vaginalis Am...[[id number]] Please view results for these tests on the individual orders. CHLAMYDIA/GONORRHOEAE AMPLIFIED RNA TRICHOMONAS VAGINALIS AMPLIFIED RNA No orders to display Procedures: Procedures ED Course / Medical Decision Making: Patient is a 28-year-old female here for evaluation of dysuria and lower abdominal discomfort. Patient is tachycardic on arrival. She is uncomfortable. She was given pain medication. No fever. No flank pain or concern for pyelonephritis. Patient's urine is strongly positive for infection. It is noted that there is no bacteria seen in her urine. This does raise concern for possible sexually transmitted infection. Patient was covered for sexually transmitted infection and she was offered a pelvicexam, however she would prefer not to do that at this time. This was added onto her urinary testing. I feel this is more likely cystitis rather than pelvic inflammatory disease, however she was givenreturn precautions. Patient was treated prophylactically for infection with Rocephin and azithromycin. Patient will be treated with Keflex. Return precautions given. Medications azithromycin (ZITHROMAX) tablet 1,000 mg (1,000 mg Oral Given 07/17/19 1447) cefTRIAXone IM (ROCEPHIN) injection 250 mg (250 mg Intramuscular Given 07/17/19 0740) ibuprofen (ADVIL,MOTRIN) tablet 600 mg (600 mg Oral Given 07/17/19 0748) phenazopyridine (PYRIDIUM) tablet 200 mg (200 mg Oral Given 07/17/19 0748) Clinical Impression: 1. Acute UTI Disposition: Patient is being discharged to home New Prescriptions cephALEXin (KEFLEX) 500 MG capsule Take 1 (one) capsule (500 mg total) by mouth 2 (two) times a dayfor 5 days . phenazopyridine (PYRIDIUM) 100 MG tablet Take 1 (one) tablet (100 mg total) by mouth 3 (three) times a day for 3 days . ibuprofen (ADVIL,MOTRIN) 600 MG tablet Take 1 (one) tablet (600 mg total) by mouth every 6 (six) hours as needed for pain . Lissy Buck DO ED Resident Physician [facility] Emergency Department (Please note that portions of this note have been completed with a voice recognition software. Efforts were made to correct any errors, but occasionally words are mis-transcribed.) Lissy Buck DO Resident 07/17/19800 * Susu De La Cruz RN - 07/17/2019 7:22 AM EDT Pt arrived to ed with c/o dysuria x 1 day. Pt denies fevers. Pt Skin w/d. Respirations even and unlabored. documented in this encounter ED Attestation Note - Amaury Camacho MD - 07/17/2019 7:57 AM EDT Miscellaneous Notes (unrecog nized section and content) ED Attestation: I have reviewed the resident's documentation. In addition, I have personally introduced myself to the patient, and have taken her history and performed an examination. I agree with the physical findings, management, clinical impression and disposition. In brief, Dianne Valente is a 28 y.o. female who presents with a chief complaint of Dysuria. Patient is otherwise healthy 28-year-old female who is been in her normal state of health with a past many weeks complains is essentially sudden onset of urinary frequency urgency and dysuria. She noticed hematuria. Some low back pain. Does not feel well but no fever or chills. On exam she has suprapubic tenderness only minimal left or right lower quadrant tenderness. Abdomen otherwise benign. Clinically I suspect she is got a hemorrhagic cystitis. She is not . Will start on antibiotics and advised her to return if symptoms worsen most concerning for fever and chills. If an EKG reading was entered by an EM resident, I personally read and reviewed the EKG and agree with their interpretation. Amaury Camacho MD, [facility] ED Attending Physician (Please note that portions of this note have been completed with a voice recognition software. Efforts were made to correct any errors, but occasionally words are mis-transcribed.) documented in this encounter Ordered Prescriptions (unrec ognized section and content) PrescriptionSigDispensedRefillsStart DateEnd Date benzonatate (TESSALON) 100 MG capsule Take 1-2 capsules by mouth 3 times daily as needed for Cough 20 capsule azithromycin (ZITHROMAX Z-MONICO) 250 MG tablet Indications:Cough,Body aches,Other fatigueTake 2 tablets (500 mg) on Day 1, and then take 1 tablet (250 mg) on days 2 through 5. 1 packet /rescriptionSigDispensedRefillsStart DateEnd Date cyclobenzaprine (FLEXERIL) 5 MG tablet Take 1 tablet by mouth 2 times daily as needed for Muscle spasms 10 tablet / acetaminophen (TYLENOL) 500 MG tablet Take 2 tablets by mouth in the morning and 2 tablets at noon and 2 tablets before bedtime. 30 tablet ibuprofen (ADVIL;MOTRIN) 800 MG tablet Take 1 tablet by mouth every 8 hours as needed for Pain 30 tablet promethazine (PHENERGAN) [address] 1 suppository rectally every 6 hours as needed for Nausea WARNING: May cause drowsiness. May impair ability to operate vehicles or machinery. Do not use in combination with alcohol. 20 suppository / ondansetron (ZOFRAN ODT) 4 MG disintegrating tablet Take 1 tablet by mouth every 8 hours as needed for Nausea 20 tablet Scheduled Active and Recently Administ ered Medications (unrecognized section and content) Medication Order/ 0.9 % sodium chloride bolus (COMPLETED) 1,000 mL (13 mL/kg), IntraVENous, at 1,000 mL/hr, Administer over 1 Hours, ONCE, On 11/02/21 at 0345, For 1 dose * 0442 (New Bag - Provider: Viv Yang RN) * 0534 (Stopped - Provider: Renetta Chery, MATTHEW) acetaminophen (TYLENOL) tablet 1,000 mg (COMPLETED) 1,000 mg, Oral, ONCE, 1 dose, On 11/02/21 at 0515 * 0524 (Given - Provider: Renetta Chery, MATTHEW) famotidine (PEPCID) injection 20 mg (COMPLETED) 20 mg, IntraVENous, ONCE, 1 dose, On 11/02/21 at 0345, IV Push over minimum of 2 minutes - Dilute with 10 mL NS * 0443 (Given - Provider: Viv Yang RN) ketorolac (TORADOL) injection 30 mg (COMPLETED) Ketorolac is contraindicated in patients with advanced renal impairment and in patients at risk of renal failure due to volume depletion. For 65 years of age and older OR weight less than 50 kg, use 15 mg IV every 6 hours; MAX dose: 60 mg/day. Dose greater than 30 mg must be administered via intramuscular route. Do not administer for more than 5 days., 30 mg, IntraVENous, ONCE, 1 dose, On 11/02/21 at 0515, Do not administer for more than 5 days. * 0525 (Given - Provider: Renetta Chery, MATTHEW) ondansetron (ZOFRAN) injection 4 mg (COMPLETED) 4 mg, IntraVENous, ONCE, 1 dose, On 11/02/21 at 0345 * 0443 (Given - Provider: Viv Yang RN) Care Teams (unrecognized sec tion and content) Team MemberRelationshipSpecialtyStart DateEnd Date Dianne Rubin, ESCROW CLERK - [employer] ENGINEER [address] [facility] [address] [place] [address] PCP - GeneralNurse Practitioner06/12/21 Team Status: Inactive Member Role Status Dates Timmy Nguynễ III , DO Primary Care Provider Active Mario Jiang ProviderActiveJack Wolff DO RESActive Team Status: Active Member Role Status Dates Timmy Nguyễn III , DO Primary Care Provider Active Team Status: Active Member Role Status Dates NON STAFF Primary Care Provider Active Team Status: Inactive Member Role Status Dates You Deras , WOOD SAWYER- Emergency Provider Active NON STAFFPrimary Care ProviderActiveTeam MemberRelationshipSpecialtyStart Date End Date Unallocated, Dontae Sanchez MD [address] [place] [address] PCP - General10/01/22 Team Status: Active Member Role Status Dates PHYSICIAN NO FAMILY Primary Care Provider Active Team Status: Inactive Member Role Status Dates NON STAFF Primary Care Provider Active Start: March 11, 2024 End: March 11Jasmin Caldwell ProviderActiveStart: March 11, 2024 End: March 11, 2024 Team Status: Inactive Member Role Status Dates PHYSICIAN NO FAMILY Primary Care Provider Active Start: May 24, 2024 End: May 24Jasmin Velazquez ProviderActiveStart: May 24, 2024 End: May 24, 2024 Team Status: Inactive Member Role Status Dates PHYSICIAN NO FAMILY Primary Care Provider Active Start: January 23, 2025 End: January 23, 2025Mario Murdock ProviderActiveStart: January 23, 2025 End: January 23, 2025 Goals (unrecognized section and content) Goals may be documented in a n alternate sectionGoals may be documented in an alternate section No data available for this sectionGoals may be documented in an alternate sectionGoals may be documented in an alternate section FOR RECORDS PERTAINING TO PATIENTS WHO ARE OR HAVE BEEN ENROLLED IN A CHEMICAL DEPENDENCY/SUBSTANCEABUSE PROGRAM, SOME INFORMATION MAY BE OMITTED. This clinical summary was aggregated from multiple sources. Caution should be exercised in using it in the provision of clinical care. This summary normalizes information from multiple sources, and as a consequence, information in this document may materially change the coding, format and clinical context of patient data. In addition, data may be omitted in some cases. CLINICAL DECISIONS SHOULD BE BASED ON THE PRIMARY CLINICAL RECORDS. [facility] [employer]. provides no warranty or guarantee of the accuracy or completeness of information in this document.
--- OUTSIDE RECORDS SUMMARY | 2025-03-19 16:40 | XMS_ITS | Clinical Summary ---
Author Organization [facility] Address [address], [address] [place] [address] Care Team Providers Care Welding Machine Feeder Name Role Phone Dianne Contreras PC TECH - WATERPROOFING MIXER Primary Care Provider Allergies Active AllergyReactionsCriticalityNoted DateCommentsMetoclopramideAnaphylaxis High11/01/2016 Neck swelling, issues breathing Medications MedicationSigDispense QuantityRefillsLast FilledStart DateEnd DateStatus METHADONE HCL PO Take 85 mg by mouth dailyActive budesonide-formoterol (SYMBICORT) 160-4.5 MCG/ACT AERO Indications:Shortness of breathInhale 2 puffs into the lungs 2 times daily 30.6 g ctive albuterol sulfate HFA (PROVENTIL;VENTOLIN;PROAIR) 108 (90 Base) MCG/ACT inhaler Indications:Shortness of breath,Respiratory tract congestion with coughinhale 2 puffs by mouth INTO THE LUNGS four times a day if needed for wheezing 18 g ctive Active Problems ProblemNoted DateDiagnosed DatePersistent cough for 3 weeks or orfzec2109/07/2021 Long-term current use of methadone for opiate zriiazknoa19/21/2022leurisy 09/07/20214899Sqxlfn55/21/0020Zjajaees02/21/2022Tobacco abuse09/07/2021bstructive lung ihdcaoz4809/07/2021Vitamin D itubthlwcp92/29/2022Hepatitis C antibody test teviekhh11/27/2021Major depressive disorder, single episode, unspecified 06/24/2019PPD positiveAllergic reaction Immunizations ImmunizationAdministration DatesNext DueCOVID-19, Inactive, MODERNA BLUE border, Primary or Immunocompromised, (age 12y+)01/03/2021 Family History Medical HistoryRelationNameCommentsHeart DiseaseFatherBreast CancerMotherHeart AttackPaternal GrandfatherHeart DiseasePaternal GrandfatherRelationNameStatus CommentsFatherAliveMotherAlivePaternal GrandfatherDeceased Social History Tobacco UseTypesPacks/DayYears UsedDateSmoking Tobacco: Every DayCigarettes0.512 Smokeless Tobacco: Never Tobacco Cessation:Ready to Q uit: No; Counseling Given: Yes Alcohol UseStandard Drinks/WeekCommentsNo0 (1 standard drink = 0.6 oz pure alcohol)AUDIT-CAnswerDate RecordedQ1: How often do you have a drink containing alcohol?Never09/07/2021Q2: How many drinks containing alcohol do you have on a typical day when you are drinking?1 or Q3: How often do you have six or more drinks on one occasion?Never09/07/2021verall Financial Resource Strain (CARDIA)AnswerDate RecordedHow hard is it for you to pay for the very basics like food, housing, medical care, and heating?Not hard at all09/22/2022HQ-2 AnswerDate RecordedPHQ-9 Total Aljwo092Hunger Vital SignAnswerDate RecordedWithin the past 12 months, you worried that your food would run out before you got the money to buymore.Never true09/22/2022Within the past 12 months, the food you bought just didn't last and you didn't have money to get more.Never true09/22/2022RAPARE - TransportationAnswerDate RecordedLack of Transportation (Medical)Not on file09/22/2022In the past 12 months, has lack of transportation kept you from meetings, work, or from getting things needed for daily living?No09/22/2022Housing Stability Vital SignAnswerDate RecordedUnable to Pay for Housing in the Last YearNot on file09/22/2022Number of Places Lived in the Last YearNot on file09/22/2022In the last 12 months, was there a time when you did not have a steady place to sleep or slept in sonoraelter (including now)?No09/22/2022Food InsecurityAnswerDate RecordedWithin the past 12 months, you worried that your food would run out before you got the money to buymore.1 09/22/2022Within the past 12 months, the food you bought just didn't last and you didn't have money to get more.regnantCommentsNoSex and Gender InformationValueDate RecordedSex Assigned at BirthNot on fileLegal SexFemale 11/08/2014 2:55 PM EDTGender IdentityNot on fileSexual OrientationNot on file Last Filed Vital Signs Vital SignReadingTime TakenCommentsBlood Uxaozpio987/8609/22/2022 3:13 PM EDT Epyea345209/22/2022 3:13 PM BCZVjkznwbortx67.7 ??C (98.1 ??F)11/02/2021 2:57 AM EDTRespiratory Yiuv2090 2:57 AM EDTOxygen Hovqbxdnip53%11/02/2021 2:57 AM EDTInhaled Oxygen Concentration--Euksip98.5 kg (195 lb)09/22/2022 3:13 PM EDT Dddgff803 cm (5' 3 )09/22/2022 3:13 PM EDTBody Mass Index34.5406 3:13 PM EDT Plan of Treatment Health MaintenanceDue DateLast DoneCommentsDepression Zjxbgzundi78/04/2005 Varicella vaccine (1 of 2 - 13+ 2-dose series)2005DTaP/Tdap/Td vaccine (1 - Tdap)08/22/2011Hepatitis B vaccine (1 of 3 - 19+ 3-dose series)08/22/2011 Pneumococcal 0-49 years Vaccine (1 of 2 - PCV)08/22/2011HPV (without or with Pap)2022ervical cancer ykqean4602/01/2023ap smear/Flu vaccine (#1)5COVID-19 Vaccine (2 - season) Hepatitis C rddomwOlxjpqiei16/23/2022, 06/12/2021, 11/08/2014HIV screenCompleted 09/06/2021, 11/08/2014HPV vaccine (No Doses Required)CompletedHepatitis A vaccineAged OutNo longer eligible based on patient's age to complete this topic Hib vaccineAged OutNo longer eligible based on patient's age to complete this topicMeningococcal (ACWY) vaccineAged OutNo longer eligible based on patient's age to complete this topicMeningococcal B vaccineAged OutNo longer eligible based on patient's age to complete this topicPolio vaccineAged OutNo longer eligible based on patient's age to complete this topic Procedures Procedure NamePriorityDate/TimeAssociated DiagnosisCommentsHIV SCREENRoutine 09/06/2021 11:48 PM EDT HEPATITIS C KMJDQLVQHeemcma90/23/2022 9:30 AM EST Hepatitis C antibody test positive HM PAP XRALYNizoiam38/15/2020 from Last 3 Months or Most Recently Relevant to Health Maintenance Results * HIV Screen (09/06/2021 11:48 PM EDT)ComponentValueRef RangeTest MethodAnalysis TimePerformed AtPathologist SignatureHIV Ag/OaOAIOVPHUJHDAOQJTCFWXWF86/20/2022 11:48 PM EDTMERCY LABORATORIESComment: No laboratory evidence of HIV infection. ??If acute HIV infection is suspected, consider testing for HIV-1 RNA. Specimen (Source)Anatomical Location / LateralityCollection Method / Volume Collection TimeReceived Time09/06/2021 11:48 PM EDT09/06/2021 11:53 PM EDT Narrative Authorizing ProviderResult TypeResult StatusSage Fagan MDIMMUNOLOGY ORDERABLESFinal ResultPerforming OrganizationAddressCity/State/ZIP CodePhone Number [address] [phone] * (ABNORMAL) Hepatitis C Antibody (06/12/2021 9:30 AM EST)ComponentValueRef RangeTest MethodAnalysis TimePerformed AtPathologist SignatureHepatitis C Ab REACTIVE(A)LOMFCDSGTQI37/23/2022 9:30 AM ESTMERChina-8 LABORATORIESComment: ? The hepatitis C procedure used in our laboratory is a Chemiluminescent test specific for three recombinant HCV antigens. ??A negative anti-HCV result indicates that the antibodies to hepatitis C virus are not present at this time. Individuals with reactive anti-HCV should be considered infected and infectious until proven otherwise. ??Confirmation of all equivocal or reactive results is recommended by ordering HCV RNA by PCR. ? Results reported to the appropriate Health Department Specimen (Source)Anatomical Location / LateralityCollection Method / Volume Collection TimeReceived TimeBLOOD SPECIMEN / Ygbduzd0606/12/2021 9:30 AM EST 06/12/2021 10:18 AM EST Narrative Authorizing ProviderResult TypeResult StatusLisa Juan Contreras PC TECH - CNPIMMUNOLOGY ORDERABLESFinal ResultPerforming OrganizationAddressCity/State/[facility] CodePhone Number [email or web address] [address] [phone] * PAP SMEAR (02/02/2020)ComponentValueRef RangeTest MethodAnalysis Time Performed AtPathologist SignaturePAP Smear, Externalabnormal Narrative Kaycee Troncoso, MA - 02/02/2020 COPATH - 02/08/2020 8:12 PM EDT ? [facility] ? [address] [place] [address] ? [place] [address] ? Gynecologic Cytology Consultation ? Patient Name: DIANNE KIMBALL : 1990 (Age: 29) Gender: F Taken: 02/02/2020 Reported: 02/08/2020 Physician(s): Axel Valencia CNM ([phone]) Copy To: ?? Med. Rec. #: [id number] Acct: # [id number] Final Cytologic Interpretation ThinPrep Pap Test (Cervical): Satisfactory for evaluation. A transformation zone component is present. SQUAMOUS EPITHELIAL CELL ABNORMALITY Atypical squamous cells of undetermined significance (ASC-US). ?? wak/02/08/2020 Interpretation performed at [facility], [address] [place] [address], License number: [id number]. Electronically Signed Out By ?Kimani Mcmullen MD Date of Last Menstrual Period: ? 01/26/2020 Other Clinical Conditions: Z01.419 Blower Feeder Dyed Raw Stock exam wo/abn findings Source of Specimen ??ThinPrep Pap Test (Cervical) ? Thin Prep Pap (REPRODUCTION TECHNICIAN) Fee Code(s): ?? G0145, 41167 The Pap test is a screening test with an inherent, but low, probability of error. The Pap test is primarily effective for the diagnosis and prevention of squamous cell carcinoma. Regular screening iscritical for prevention. ThinPrep liquid-based slides, which meet the Sheet [employer] criteria for automated screening, have been screened by the ThinPrep Imaging System (as of 01/04/07) along with an additional manual rescreening by a cell preparer and, if indicated, by a pathologist. ?? (ABNORMAL) Pap Smear (02/02/2020 6:00 PM EDT) COPATH? Back to top of Lab Results Visit Diagnoses - documented in this encounter Diagnosis Women's annual routine gynecological examination?? Admitting Diagnoses - documented in this encounter Not on file Administered Medications - documented in this encounter Not on file Additional Health Concerns - documented as of this encounter Not on file Care Teams - documented as of this encounter Welding Machine Feeder Relationship Specialty Start Date End Date No Pcp, [place] Pcp?? [place] [address]?? PCP - General ?? 11/02/14 04/04/21 Images Patient Demographics Patient Address Communication Language Race / Ethnicity Marital Status [address] (Home) [place] [address] Former (2020 - 2020): [address] (Home) [place] [address] Former (2019 - 2020): [address]) [place] [address] Former (2017 - 2019): [address] (Home) [place] [address] [email or web address] Ukrainian - Written (Preferred) White / Not or Single Patient Contacts Contact Name Contact Address Communication Relationship to Patient Broderick Cardona Unknown Friend, Emergency Contact Document Information Primary Care Provider Other Service Providers Document Coverage Dates No Pcp No Pcp (2014July 2014 - ecember 2020) [place] [address] Family Medicine 2019October 2019 [employer] Organization [address] [address] Encounter Providers Encounter Date 2019October 2019 Authorizing ProviderResult TypeResult StatusHistorical Provider MDHEALTH MAINTENANCEEdited Result - Final from Last 3 Months or Most Recently Relevant to Health Maintenance Insurance Advance Directives * Full Code (Latest Code Status on File) Date ActivatedDate InactivatedComments09/07/2021 5:05 AM09/07/2021 10:43 PM Care Teams Team MemberRelationshipSpecialtyStart DateEnd Date Dianne Contreras, PC TECH - WATERPROOFING MIXER [address] [place] [address] PCP - GeneralNurse Practitioner06/12/21
--- OUTSIDE RECORDS SUMMARY | 2025-03-19 16:40 | XMS_ITS | Patient Health Record ---
Author Organization [employer] [facility] Address [address] [place] [address] Care Team Providers Care In Shop Service Technician Name Role Phone Khari Barber Primary Care Provider Dr. Gabino Vickers Unavailable [phone] Kailee Segovia Unavailable Reason For Referral No Information Medications Medication SIG (Take, Route, Frequency, Duration) Notes Start Date End Date Status Ibuprofen 800 MG Tablet 1 tablet with fo od or milk as needed Orally Three times a day 07/24/2022UnknownIbuprofen 800 MG Tablet1 tablet with food or milk as needed Orally Three times a day02/08/2025tive Encounters Encounter Location Date Provider Diagnosis [address] [address] 01/27/2025 Gabino Vickers Other dental procedu re status Z98.818 and Encounter for dental examination and cleaning with abnormal findings Z01.21 [facility] [address] [place] [address] 02/08/2025 Kailee Michelle Cracked tooth K03.81 Assessments Encounter Date Diagnosis (ICD Code) Assessment Notes Treatment Notes Treatment Clinical Notes Section Notes 01/27/2025 Other dental procedure status (I CD-10 - Z98.818) 02/08/2025racked tooth (ICD-10 - K03.81)01/27/2025Encounter for dental examination and cleaning with abnormal findings (ICD-10 - Z01.21) Plan Of Treatment Next Appt Details Provider Name:Gabino Vickers, 0 06/19/2025 04:00:00 PM, [address] [place], [address], Provider Name:Gabino Vickers, 0 06/29/2025 09:00:00 AM, [address] [place], [address], Provider Name:Gabino Vickers, 0 07/27/2025 09:00:00 AM, [address] [place], [address], Insurance Providers Payer Name Payer Address Payer Phone Subscriber Number Group Number Insured Name Patient Relationship to Insured Coverage Start Date Coverage End Date [facility] [place] [employer] [address] [address] [place] [address] [id number] Thomas VALENTE - patient is the [id number] 2022ental Wrap [facility] [address] [place] [phone], LISASelf - patient is the [id number] 2022
--- OUTSIDE RECORDS SUMMARY | 2025-03-19 16:40 | XMS_ITS | Clinical Summary ---
Author Organization [facility] Address [address] [place] [address] Care Team Providers Care Swimming Coach Or Instructor Name Role Phone No, Physician Primary Care Provider Unavailabl e Allergies No known active allergies Social History Tobacco UseTypesPacks/DayYears UsedDateSmoking Tobacco: Every DayCigarettes Smokeless Tobacco: NeverAlcohol UseStandard Drinks/WeekCommentsNever0 (1 standard drink = 0.6 oz pure alcohol)AUDIT-CAnswerDate RecordedFrequency of Alcohol SjtxtykvstzTkeye97/29/2020Average Number of DrinksNot on file07/17/2019 Frequency of Binge DrinkingNot on file07/17/2019CommentsUnknownSex and Gender InformationValueDate RecordedSex Assigned at BirthNot on fileLegal Sex Dvgeqs1207/17/2019 7:10 AM EDTGender TfxyydeaYbtqwx04/29/2020 7:42 AM EDTSexual UowcjbnakyqFgdxmkqu29/29/2020 7:42 AM EDT Last Filed Vital Signs Vital SignReadingTime TakenCommentsBlood Eyxnykec333/8407/17/2019 8:02 AM EDT Jugqn746207/17/2019 8:02 AM MJMNundaexhruo78.5 ??C (97.7 ??F)07/17/2019 7:21 AM EDTRespiratory Ojye7749 8:02 AM EDTOxygen Ejlxaarudi99%07/17/2019 8:02 AM EDTInhaled Oxygen Concentration--Nvzsxg82.5 kg (140 lb)07/17/2019 7:21 AM EDT Awxpip494 cm (5' 3 )07/17/2019 7:21 AM EDTBody Mass Index24.803 7:21 AM EDT Plan of Treatment Not on file Insurance * Guarantor: Audi Kimball TypeRelation to PatientDate of BirthPhone Billing AddressPersonal/ZenjrdSjbm22/04/1991 [address] [address] Care Teams Team MemberRelationshipSpecialtyStart DateEnd Date No, Physician [facility] PCP - General07/17/19
[2025-03-19 17:22] LABS: Glucose Urine UA NEGATIVE (NEGATIVE)
[2025-03-19 17:24] LABS: HCG Qualitative Urine* POSITIVE (NEGATIVE)
[2025-03-19 17:35] LABS: Cast Seen? NONE SEEN #/LPF (NONE SEEN); Crystals Seen? None Seen #/HPF (None Seen)
== END 2025-03-19 18:40 | disposition left against medical advice (07) ==
PROVIDERS: Emergency Provider Emergency Medicine
DX: O99.891 Other specified diseases and conditions complicating pregnancy (principal); R10.9 Unspecified abdominal pain; Z53.29 Procedure and treatment not carried out because of patient's decision for other reasons; Z3A.01 Less than 8 weeks gestation of pregnancy
CPT/HCPCS: 80048; 81001; 84702; 84703; 99284